=== PATIENT | male | born 1935 | race Caucasian/White ===

== ENCOUNTER 2017-05-04 16:17 | Inpatient (IN) | payer MEDICARE, OTHER ==
[2017-05-04 16:20] VITALS: BMI 20.9
--- NOTE | 2017-05-04 16:58 | C.PDOC ---
History Of Present Illness 81-year-old male, presents to the emergency department with complaints of dysuria and hematuria that started yesterday. Last episode four months ago. Patient denies fevers, back pain, nausea/vomiting, or any other associated symptoms. No other complaints at this time. Patient is on Coumadin for A-fib. Time Seen by Provider: 05/04/17 16:31 Chief Complaint (Nursing): Male Genitourinary History Per: Patient History/Exam Limitations: no limitations Onset/Duration Of Symptoms: Hrs Current Symptoms Are (Timing): Still Present Severity: Moderate Past Medical History Reviewed: Historical Data, Nursing Documentation, Vital Signs Vital Signs: Last Vital Signs Temp 98.4 F 05/04/17 16:23 Pulse 107 H 05/04/17 18:10 Resp 16 05/04/17 18:10 BP 161/93 H 05/04/17 18:10 Pulse Ox 97 05/04/17 18:10 - Medical History PMH: Atrial Fibrillation, Cardia Arrhythmia (A-FIB), HTN, Hypercholesterolemia, Osteoporosis Denies: Chronic Kidney Disease - [facility] Procedures ING HERNIA REP-GRAFT NOS (05/08/14) Family History: States: No Known Family Hx - Social History Hx Tobacco Use: No Hx Alcohol Use: No Hx Substance Use: No - Immunization History Hx Tetanus Toxoid Vaccination: Yes Hx Influenza Vaccination: Yes Hx Pneumococcal Vaccination: Yes Review Of Systems Except As Marked, All Systems Reviewed And Found Negative. Constitutional: Negative for: Fever, Chills Cardiovascular: Negative for: Chest Pain Respiratory: Negative for: Cough, Shortness of Breath Gastrointestinal: Negative for: Nausea, Vomiting Genitourinary: Positive for: Dysuria, Hematuria Musculoskeletal: Negative for: Back Pain Physical Exam - Physical Exam Appears: Non-toxic, No Acute Distress Skin: Warm, Dry, No Rash Head: Atraumatic, Normacephalic Eye(s): bilateral: Normal Inspection, PERRL Oral Mucosa: Moist Lips: Normal Appearing Neck: Normal ROM Chest: Symmetrical Cardiovascular: Rhythm Regular, No Murmur Respiratory: Normal Breath Sounds, No Accessory Muscle Use Gastrointestinal/Abdominal: Distention (mild) Extremity: Normal ROM, Pedal Edema (chronic), No Deformity Neurological/Psych: Oriented x3 ED Course And Treatment - Laboratory Results Result Diagrams: 05/04/17 17:47 05/04/17 17:47 Lab Interpretation: Abnormal (Hgb 8.3, BUN 80, Cr 3.5) O2 Sat by Pulse Oximetry: 95 Pulse Ox Interpretation: Normal Progress Note: Huber inserted and drained >300ml grossly bloody clotted urine. CBI started. Reevaluation Time: 18:29 Reassessment Condition: Improved - Physician Consult Information Time Consulting Physician Contacted: 18:29 Physician Contacted: Nestor Jason Outcome Of Conversation: Patient to be admitted for urology evaluation. Disposition - Disposition Disposition: HOSPITALIZED Disposition Time: 18:30 Condition: FAIR - POA Present On Arrival: None - Clinical Impression Clinical Impression: Gross hematuria, Urinary retention, Renal insufficiency - Scribe Statement The provider has reviewed the documentation as recorded by the Tashiibdarcy Eason All medical record entries made by the Tashiibdarcy were at my direction and personally dictated by me. I have reviewed the chart and agree that the record accurately reflects my personal performance of the history, physical exam, medical decision making, and the department course for this patient. I have also personally directed, reviewed, and agree with the discharge instructions and disposition.
[2017-05-04 17:52] LABS: BASO % 0.6 % (0.0-2.0); EOS % 0.1 % (0.0-4.0); HEMATOCRIT 26.7 % (35.0-51.0); LYMPH # 0.7 K/uL (1.0-4.3); LYMPH % 11.3 % (20.0-40.0); MEAN CELL VOLUME 77.4 fL (80.0-94.0); MEAN PLATELET VOLUME 8.4 fL (7.2-11.7); MONO # 0.6 K/uL (0.0-0.8); MONO % 9.7 % (0.0-10.0); RED CELL DISTRIBUTION WIDTH 16.4 % (11.5-14.5); WHITE BLOOD COUNT 6.3 K/uL (4.8-10.8)
[2017-05-04 17:59] LABS: RBC URINE 7668 /hpf (0-3); URINE BACTERIA FEW (<OCC); URINE BILIRUBIN NEGATIVE (NEGATIVE); URINE COLOR Red (YELLOW); URINE GLUCOSE (UA) NORMAL (Normal); URINE KETONE TRACE mg/dL (NEGATIVE); URINE LEUKOCYTE ESTERASE NEG Leu/uL (Negative); URINE PROTEIN 2+ mg/dL (NEGATIVE); URINE UROBILINOGEN NORMAL mg/dL (0.2-1.0)
[2017-05-04 18:00] LABS: URINE BLOOD 3+ (NEGATIVE)
[2017-05-04 18:07] LABS: POTASSIUM 4.8 mmol/L (3.6-5.2)
[2017-05-04 18:09] LABS: BILIRUBIN,TOTAL 0.6 mg/dL (0.2-1.3)
[2017-05-04 18:10] LABS: ALB/GLOB RATIO 0.9 (1.0-2.1); CALCIUM 8.6 mg/dl (8.6-10.4); TOTAL PROTEIN 7.4 g/dL (6.3-8.3)
[2017-05-04 18:35] LABS: INR 6.9
[2017-05-04] MEDS ORDERED: Dextrose 5%/0.45% NS 1,000 ML IV SCH (20:00)
[2017-05-04] MEDS ORDERED: Phytonadione 10 mg/ml Inj (Adult) SC STA (20:04)
[2017-05-04] MEDS ORDERED: Phytonadione 10 mg/ml Inj (Adult) ONE (20:08)
[2017-05-04 20:32] LABS: BASO % 0.6 % (0.0-2.0); EOS % 0.2 % (0.0-4.0); HEMATOCRIT 27.6 % (35.0-51.0); LYMPH # 0.8 K/uL (1.0-4.3); MEAN CORPUSCULAR HEMOGLOBIN 24.1 pg (27.0-31.0); MEAN CORPUSCULAR HGB CONC 30.9 g/dL (33.0-37.0); MEAN PLATELET VOLUME 7.9 fL (7.2-11.7); MONO # 0.8 K/uL (0.0-0.8); MONO % 11.6 % (0.0-10.0); RED CELL DISTRIBUTION WIDTH 16.2 % (11.5-14.5); WHITE BLOOD COUNT 6.8 K/uL (4.8-10.8)
[2017-05-04 20:40] LABS: POTASSIUM 4.5 mmol/L (3.6-5.2)
[2017-05-04 20:43] LABS: BILIRUBIN,TOTAL 0.4 mg/dL (0.2-1.3); TOTAL PROTEIN 6.8 g/dL (6.3-8.3)
[2017-05-04 20:44] LABS: CALCIUM 8.5 mg/dl (8.6-10.4)
[2017-05-04] MEDS ORDERED: ROSUVASTATIN CALCIUM 5 MG PO SCH (22:00)
[2017-05-04] MEDS: Metoprolol Succinate 25 mg XL Tab PO SCH (22:52)
[2017-05-04] MEDS: Pantoprazole 40 mg EC Tab PO SCH (22:52)
[2017-05-04] MEDS: Dextrose 5%/0.45% NS 1,000 ML IV SCH (22:53)
[2017-05-04] MEDS: Phytonadione 10 mg/ml Inj (Adult) SC SCH (22:54)
[2017-05-05] MEDS: Phytonadione 10 mg/ml Inj (Adult) SC SCH ×2 (05:16→10:56)
[2017-05-05 07:52] LABS: INR 3.6
--- NOTE | 2017-05-05 09:42 | CP.PCM.HP ---
History of Present Illness - History of Present Illness History of Present Illness: 81 year old male who comes to the [facility] ER with gross hematuria for the passed 24 hours. Patient has an INR of 6.3 and hospitalization was advised. Past history includes hypertension, hyperlipidemia , cardiac arrhythmia and thrombophlebitis. Present on Admission - Present on Admission Any Indicators Present on Admission: No History of DVT/PE: Yes History of Uncontrolled Diabetes: No Urinary Catheter: No Decubitus Ulcer Present: No History Surgical Site Infection Following: None Review of Systems - Review of Systems Systems not reviewed;Unavailable: Other (hematuria) - Constitutional Constitutional: Fatigue - EENT Ears: Dizziness - Genitourinary Genitourinary: Hematuria - Musculoskeletal Musculoskeletal: Arthralgias - Neurological Neurological: Weakness Past Patient History - Tetanus Immunizations Tetanus Immunization: Up to Date - Past Medical History & Family History Past Medical History?: Yes - Past Social History Smoking Status: Never Smoked Chewing Tobacco Use: No Cigar Use: No Alcohol: None Drugs: Denies - CARDIAC Hx Atrial Fibrillation: Yes Hx Cardia Arrhythmia: Yes (A-FIB) Hx Hypercholesterolemia: Yes Hx Hypertension: Yes - PULMONARY Hx Respiratory Disorders: No Hx Asthma: Yes - NEUROLOGICAL Hx Neurological Disorder: No - HEENT Hx HEENT Problems: Yes Hx Cataracts: Yes - RENAL Hx Chronic Kidney Disease: No - ENDOCRINE/METABOLIC Hx Endocrine Disorders: No - HEMATOLOGICAL/ONCOLOGICAL Hx Blood Disorders: No - INTEGUMENTARY Hx Dermatological Problems: No - MUSCULOSKELETAL/RHEUMATOLOGICAL Hx Degenerative Joint Disease: Yes Hx Falls: No Hx Osteoporosis: Yes - GASTROINTESTINAL Hx Gastrointestinal Disorders: Yes Hx Constipation: Yes Hx Gastroesophageal Reflux: Yes - GENITOURINARY/GYNECOLOGICAL Hx Prostate Problems: Yes (prostate problem???) - PSYCHIATRIC Hx Substance Use: No - SURGICAL HISTORY Hx Surgeries: Yes Other/Comment: inguinal hernia repair 2014 - ANESTHESIA Hx Anesthesia: Yes Hx Anesthesia Reactions: No Hx Malignant Hyperthermia: No Has any member of the family had a problem w/ anesthesia?: No Meds Allergies/Adverse Reactions: Allergies Allergy/AdvReac Type Severity Reaction Status Date / Time No Known Allergies Allergy Verified 05/04/17 16:20 Physical Exam - Constitutional Appears: No Acute Distress - Head Exam Head Exam: NORMAL INSPECTION - Eye Exam Eye Exam: Normal appearance Pupil Exam: NORMAL ACCOMODATION - ENT Exam ENT Exam: Normal Oropharynx - Neck Exam Neck exam: Positive for: Normal Inspection - Respiratory Exam Respiratory Exam: Decreased Breath Sounds - Cardiovascular Exam Cardiovascular Exam: REGULAR RHYTHM - GI/Abdominal Exam GI & Abdominal Exam: Normal Bowel Sounds - Rectal Exam Rectal Exam: Deferred - Exam Exam: NORMAL INSPECTION - Extremities Exam Extremities exam: Positive for: tenderness - Back Exam Back exam: NORMAL INSPECTION - Neurological Exam Neurological exam: Oriented x3 - Psychiatric Exam Psychiatric exam: Flat Affect - Skin Skin Exam: Dry Results - Vital Signs Recent Vital Signs: Last Vital Signs Temp 98.2 F 05/05/17 08:00 Pulse 95 H 05/05/17 08:00 Resp 20 05/05/17 08:00 BP 139/82 05/05/17 08:00 Pulse Ox 98 05/05/17 08:00 - Labs Result Diagrams: 05/04/17 20:26 05/04/17 20:26 Labs: Laboratory Results - last 24 hr 05/04/17 05/04/17 05/04/17 20:26 20:26 20:26 WBC 6.8 RBC 3.54 L Hgb 8.5 L Hct 27.6 L MCV 78.0 L MCH 24.1 L MCHC 30.9 L RDW 16.2 H Plt Count 162 MPV 7.9 Neut % (Auto) 75.6 H Lymph % (Auto) 12.0 L [place] % (Auto) 11.6 H Eos % (Auto) 0.2 Baso % (Auto) 0.6 Neut # 5.1 Lymph # 0.8 L [place] # 0.8 Eos # 0.0 Baso # 0.0 PT INR Sodium 141 Potassium 4.5 Chloride 106 Carbon Dioxide 25 Anion Gap 15 BUN 75 H Creatinine 3.6 H Est GFR ( Amer) 20 Est GFR (Non-Af Amer) 16 Random Glucose 96 Calcium 8.5 L Total Bilirubin 0.4 AST 22 ALT 23 Alkaline Phosphatase 78 Total Protein 6.8 Albumin 3.3 L Globulin 3.5 Albumin/Globulin Ratio 1.0 Prostate Specific Ag Blood Type B POSITIVE Blood Type Confirm B POSITIVE Antibody Screen Negative 05/05/17 05/05/17 07:30 07:30 WBC RBC Hgb Hct MCV MCH MCHC RDW Plt Count MPV Neut % (Auto) Lymph % (Auto) [place] % (Auto) Eos % (Auto) Baso % (Auto) Neut # Lymph # [place] # Eos # Baso # PT 43.5 H* D INR 3.6 D Sodium Potassium Chloride Carbon Dioxide Anion Gap BUN Creatinine Est GFR ( Amer) Est GFR (Non-Af Amer) Random Glucose Calcium Total Bilirubin AST ALT Alkaline Phosphatase Total Protein Albumin Globulin Albumin/Globulin Ratio Prostate Specific Ag 33.1 H Blood Type Blood Type Confirm Antibody Screen Assessment & Plan (1) Degenerative joint disease Status: Acute (2) ASHD (arteriosclerotic heart disease) Status: Acute (3) Elevated PSA, greater than or equal to 20 ng/ml Status: Acute (4) Gross hematuria Status: Acute (5) Renal insufficiency Status: Acute (6) Urinary retention Status: Acute
[2017-05-05] MEDS: Metoprolol Succinate 25 mg XL Tab PO SCH (09:53)
[2017-05-05] MEDS: Pantoprazole 40 mg EC Tab PO SCH (09:53)
--- NOTE | 2017-05-05 10:48 | CP.PCM.CON ---
History of Present Illness - History of Present Illness History of Present Illness: 81 year old male who comes to the [facility] ER with gross hematuria for the passed 24 hours. Patient has an INR of 6.3 and hospitalization was advised. Past history includes hypertension, hyperlipidemia , cardiac arrhythmia and thrombophlebitis. PMH: HTN DL CHRONIC AFIB DDD PSH: INGUINAL HERNIA REPAIR HAD URINARY RETENTION AND CBI PLACED IN ED NOTED TO HAVE ELEVATED CREATININE- NO H/O CKD WILL LEAVE CBI IN PLACE, INITIATE RENAL WORKUP ADD IV FLUIDS CHECK RENAL US RECOMMEND EVALUATION HOLD WARFARIN UNTIL INR IN RANGE CONSULT DICTATED Past Patient History - Tetanus Immunizations Tetanus Immunization: Up to Date - Past Medical History & Family History Past Medical History?: Yes - Past Social History Smoking Status: Never Smoked Chewing Tobacco Use: No Cigar Use: No Alcohol: None Drugs: Denies - CARDIAC Hx Atrial Fibrillation: Yes Hx Cardia Arrhythmia: Yes (A-FIB) Hx Hypercholesterolemia: Yes Hx Hypertension: Yes - PULMONARY Hx Respiratory Disorders: No Hx Asthma: Yes - NEUROLOGICAL Hx Neurological Disorder: No - HEENT Hx HEENT Problems: Yes Hx Cataracts: Yes - RENAL Hx Chronic Kidney Disease: No - ENDOCRINE/METABOLIC Hx Endocrine Disorders: No - HEMATOLOGICAL/ONCOLOGICAL Hx Blood Disorders: No - INTEGUMENTARY Hx Dermatological Problems: No - MUSCULOSKELETAL/RHEUMATOLOGICAL Hx Degenerative Joint Disease: Yes Hx Falls: No Hx Osteoporosis: Yes - GASTROINTESTINAL Hx Gastrointestinal Disorders: Yes Hx Constipation: Yes Hx Gastroesophageal Reflux: Yes - GENITOURINARY/GYNECOLOGICAL Hx Prostate Problems: Yes (prostate problem???) - PSYCHIATRIC Hx Substance Use: No - SURGICAL HISTORY Hx Surgeries: Yes Other/Comment: inguinal hernia repair 2013 - ANESTHESIA Hx Anesthesia: Yes Hx Anesthesia Reactions: No Hx Malignant Hyperthermia: No Has any member of the family had a problem w/ anesthesia?: No Meds Allergies/Adverse Reactions: Allergies Allergy/AdvReac Type Severity Reaction Status Date / Time No Known Allergies Allergy Verified 05/04/17 16:20 - Medications Medications: Current Medications Dextrose/Sodium Chloride (Dextrose 5%/0.45% Ns 1000 Ml) 1,000 mls @ 60 mls/hr IV .[id number] [facility] Last Admin: 05/04/17 22:53 Dose: 60 mls/hr Metoprolol Succinate (Toprol Xl) 25 mg PO DAILY [facility] Last Admin: 05/05/17 09:53 Dose: 25 mg Pantoprazole Sodium (Protonix Ec Tab) 40 mg PO DAILY [facility] Last Admin: 05/05/17 09:53 Dose: 40 mg Phytonadione (Vitamin K Inj) 5 mg SC Q6H [facility] Stop: 05/05/17 11:01 Last Admin: 05/05/17 05:16 Dose: 5 mg Rosuvastatin Calcium (Crestor) 5 mg PO [facility] Results - Vital Signs Recent Vital Signs: Last Vital Signs Temp 98.2 F 05/05/17 08:00 Pulse 95 H 05/05/17 08:00 Resp 20 05/05/17 08:00 BP 139/82 05/05/17 08:00 Pulse Ox 98 05/05/17 08:00 - Labs Result Diagrams: 05/04/17 20:26 05/04/17 20:26 Labs: Laboratory Results - last 24 hr 05/04/17 05/04/17 05/04/17 20:26 20:26 20:26 WBC 6.8 RBC 3.54 L Hgb 8.5 L Hct 27.6 L MCV 78.0 L MCH 24.1 L MCHC 30.9 L RDW 16.2 H Plt Count 162 MPV 7.9 Neut % (Auto) 75.6 H Lymph % (Auto) 12.0 L [place] % (Auto) 11.6 H Eos % (Auto) 0.2 Baso % (Auto) 0.6 Neut # 5.1 Lymph # 0.8 L [place] # 0.8 Eos # 0.0 Baso # 0.0 PT INR Sodium 141 Potassium 4.5 Chloride 106 Carbon Dioxide 25 Anion Gap 15 BUN 75 H Creatinine 3.6 H Est GFR ( Amer) 20 Est GFR (Non-Af Amer) 16 Random Glucose 96 Calcium 8.5 L Total Bilirubin 0.4 AST 22 ALT 23 Alkaline Phosphatase 78 Total Protein 6.8 Albumin 3.3 L Globulin 3.5 Albumin/Globulin Ratio 1.0 Prostate Specific Ag Blood Type B POSITIVE Blood Type Confirm B POSITIVE Antibody Screen Negative 05/05/17 05/05/17 07:30 07:30 WBC RBC Hgb Hct MCV MCH MCHC RDW Plt Count MPV Neut % (Auto) Lymph % (Auto) [place] % (Auto) Eos % (Auto) Baso % (Auto) Neut # Lymph # [place] # Eos # Baso # PT 43.5 H* D INR 3.6 D Sodium Potassium Chloride Carbon Dioxide Anion Gap BUN Creatinine Est GFR ( Amer) Est GFR (Non-Af Amer) Random Glucose Calcium Total Bilirubin AST ALT Alkaline Phosphatase Total Protein Albumin Globulin Albumin/Globulin Ratio Prostate Specific Ag 33.1 H Blood Type Blood Type Confirm Antibody Screen
--- NOTE | 2017-05-05 11:07 | CON ---
DATE: 05/05/2017 The patient is an 81-year-old man who presents 24 hours of gross hematuria. He was unable t o pass much urine, and the urine he did pass had a large amount of blood in it. He came to the [facility] ency Department. He was felt to have urinary retention, and a CBI was placed. PAST MEDICAL HISTORY: Hypertension, dyslipidemia, chronic atrial fibrillation, degenerative disk dis ease. He takes Coumadin and blood pressure medications at home. PAST SURGICAL HISTORY: Inguinal hernia repair. SOCIAL HISTORY: Negative for smoking, alcohol abuse, or illicit drug use. FAMILY HISTORY: Negative for chronic kidney disease. REVIEW OF SYSTEMS: Significant for gross hematuria, inability to urinate. He has moderate dyspnea o n exertion of approximately 2 blocks. He has no syncope, no dizziness. He has no chest pain, no new rashes, no hearing deficits, or visual disturbances. Other review of systems is all negative. PHYSICAL EXAMINATION: GENERAL: He is a well-developed man in no acute distress. Huber catheter is in place with gross hem aturia. VITAL SIGNS: Blood pressure is 139/82, temperature 98.2. Pulse is 95, pulse ox 98% on room air. HEENT: He is anicteric. Mouth was clear. NECK: No JVD. LUNGS: Lung gu were clear. HEART: Shows irregular heart rhythm, ventricular response about 80-90. ABDOMEN: Soft, distended. No masses or organomegaly. EXTREMITIES: He had 2+ pedal edema. LABORATORY DATA: Blood work showed hemoglobin of 8.5. MCV is 78. INR was elevated at 6.9, and now has decreased to 3.6. BUN is now 75, creatinine 3.6, calcium 8.5. PSA is elevated at 33. Urine marco wed 2+ protein and 3+ blood. IMPRESSION: Acute kidney injury, urinary retention, elevated prostate-specific antigen levels, rule out underlying malignancy. RECOMMENDATIONS: Would continue the CBI, IV fluid hydration. I would obtain renal ultrasound and a renal workup, and will need a urology consult for further evaluation of elevated PSA, and if he needs further studies, he might need a CAT scan as well. We will follow up. Twin Lucas MD cc: [id number] TT: 05/05/2017 11:06:29 Confirmation # [id number] Dictation # [id number]
[2017-05-05 11:50] LABS: BASO % 0.6 % (0.0-2.0); EOS % 0.5 % (0.0-4.0); HEMATOCRIT 25.5 % (35.0-51.0); LYMPH # 0.6 K/uL (1.0-4.3); LYMPH % 8.9 % (20.0-40.0); MEAN CELL VOLUME 77.9 fL (80.0-94.0); MEAN CORPUSCULAR HEMOGLOBIN 24.2 pg (27.0-31.0); MEAN CORPUSCULAR HGB CONC 31.1 g/dL (33.0-37.0); MEAN PLATELET VOLUME 7.9 fL (7.2-11.7); MONO # 0.7 K/uL (0.0-0.8); MONO % 10.5 % (0.0-10.0); PLATELET COUNT 164 K/uL (130-400); WHITE BLOOD COUNT 6.5 K/uL (4.8-10.8)
[2017-05-05 12:01] LABS: POTASSIUM 4.5 mmol/L (3.6-5.2)
[2017-05-05 12:04] LABS: CALCIUM 8.2 mg/dl (8.6-10.4)
[2017-05-05 12:21] LABS: NEUTROPHIL 87 % (50-75); TOTAL CELLS COUNTED 100
--- NOTE | 2017-05-05 15:17 | US ---
PROCEDURE: Ultrasound of the Kidneys HISTORY: DEBORAH, HEMATURIA COMPARISON: No prior renal ultrasound studies is CT abdomen and pelvis 03/30/2014 is noted on that exam patient is noted to have multiple bilateral renal cysts TECHNIQUE: Sonogram of the kidneys. FINDINGS: RIGHT KIDNEY: Measures: 12.7 x 6.7 x 7.1 cm. Multiple a renal cysts are again noted. In the lower pole there are least 2 cysts measuring 2.5 x 2.3 x 3.1 and 2.8 x 1.3 x 2.3 cm. In the midpole 1 of the cyst measuring 2.0 x 2.0 x 2.0 cm is noted. There is interval right hydronephrosis noted. Completely hydronephrosis from the right renal cysts is problematic Gross solid-appearing masses appreciated LEFT KIDNEY: Measures: 13.5 x 6.2 x 6.4 cm. Interval left hydronephrosis is noted. A left midpole left renal cyst 7.1 x 4.6 x 6.0 cm is noted. No solid-appearing mass is apparent OTHER FINDINGS: A Huber catheter was is within the nondistended bladder. CT noted enlarged prostate extending into the bladder base resulting in outlet obstruction is 1 consideration. An intrinsic concomitant bladder base mass is not excluded. IMPRESSION: Interval bilateral hydronephrosis. Bladder outlet obstruction inferred. Enlarged prostate. An intrinsic concomitant bladder base mass is not excluded. Follow-up recommended. Bilateral renal cysts -these have been received noted. No suspicious solid appearing renal mass noted
--- NOTE | 2017-05-05 16:42 | US ---
HISTORY: hematuria, PSA 33 COMPARISON: None available. TECHNIQUE: FINDINGS: A Huber catheter was is within the nondistended bladder. CT noted enlarged prostate extending into the bladder base resulting in outlet obstruction is 1 consideration. An intrinsic concomitant bladder base mass is not excluded. this inferior bladder base/prostate bulk volume is estimated to be 7.7 x 5.9 x 6.0 cm. OTHER FINDINGS: None. IMPRESSION: Findings as above. Consider cystoscopy
--- NOTE | 2017-05-05 16:45 | RAD ---
HISTORY: infiltrate COMPARISON: No prior. TECHNIQUE: Chest PA and lateral FINDINGS: LUNGS: Left basal nonspecific rounded opacity -mass versus infiltrate PLEURA: No significant pleural effusion identified. No pneumothorax apparent. CARDIOVASCULAR: Normal. OSSEOUS STRUCTURES: Thoracic spondylosis. Shoulder arthrosis VISUALIZED UPPER ABDOMEN: Normal. OTHER FINDINGS: None. IMPRESSION: Rounded masslike opacity left lung base - -bordering the left heart. Mass versus round infiltrate Consider CT chest imaging for further evaluation
--- NOTE | 2017-05-05 23:06 | CP.PCM.PN ---
Subjective - Date & Time of Evaluation Date of Evaluation: 05/05/17 Time of Evaluation: 13:15 - Subjective Subjective: Patient alert and responsive. INR down to 3.6. Patient evaluated by Dr Lucas. Urology consult pending. Objective - Vital Signs/Intake and Output Vital Signs (last 24 hours): Temp Pulse Resp BP Pulse Ox 98.5 F 88 20 153/80 H 96 05/05/17 15:10 05/05/17 15:10 05/05/17 15:10 05/05/17 15:10 05/05/17 15:10 Intake and Output: 05/05/17 05/06/17 18:59 06:59 Intake Total 690 Output Total 3000 Balance -2310 - Medications Medications: Current Medications Dextrose/Sodium Chloride (Dextrose 5%/0.45% Ns 1000 Ml) 1,000 mls @ 60 mls/hr IV .[id number] [facility] Last Admin: 05/04/17 22:53 Dose: 60 mls/hr Metoprolol Succinate (Toprol Xl) 25 mg PO DAILY [facility] Last Admin: 05/05/17 09:53 Dose: 25 mg Pantoprazole Sodium (Protonix Ec Tab) 40 mg PO DAILY [facility] Last Admin: 05/05/17 09:53 Dose: 40 mg Rosuvastatin Calcium (Crestor) 5 mg PO [facility] Last Admin: 05/05/17 22:14 Dose: 5 mg - Labs Labs: 05/05/17 11:44 05/05/17 11:44 PT 43.5 SECONDS (9.7-12.2) H* D 05/05/17 07:30 INR 3.6 D 05/05/17 07:30 - Constitutional Appears: No Acute Distress - Head Exam Head Exam: NORMAL INSPECTION - Eye Exam Eye Exam: Normal appearance - ENT Exam ENT Exam: Normal Exam - Neck Exam Neck Exam: Normal Inspection - Respiratory Exam Respiratory Exam: Decreased Breath Sounds - Cardiovascular Exam Cardiovascular Exam: REGULAR RHYTHM - GI/Abdominal Exam GI & Abdominal Exam: Normal Bowel Sounds - Rectal Exam Rectal Exam: Deferred - Exam Exam: NORMAL INSPECTION - Extremities Exam Extremities Exam: Tenderness - Back Exam Back Exam: NORMAL INSPECTION - Neurological Exam Neurological Exam: Oriented x3 - Psychiatric Exam Psychiatric exam: Normal Mood Assessment and Plan (1) Degenerative joint disease Status: Acute (2) ASHD (arteriosclerotic heart disease) Status: Acute (3) Elevated PSA, greater than or equal to 20 ng/ml Status: Acute (4) Gross hematuria Status: Acute (5) Renal insufficiency Status: Acute (6) Urinary retention Status: Acute
[2017-05-06 06:16] LABS: HEMATOCRIT 26.4 % (35.0-51.0); MEAN CELL VOLUME 76.7 fL (80.0-94.0); MEAN CORPUSCULAR HGB CONC 31.3 g/dL (33.0-37.0); MEAN PLATELET VOLUME 7.8 fL (7.2-11.7); RED CELL DISTRIBUTION WIDTH 16.3 % (11.5-14.5); WHITE BLOOD COUNT 8.2 K/uL (4.8-10.8)
[2017-05-06] MEDS: Dextrose 5%/0.45% NS 1,000 ML IV SCH ×5 (06:25→23:07)
[2017-05-06 06:41] LABS: ALB/GLOB RATIO 0.9 (1.0-2.1); BILIRUBIN,TOTAL 0.5 mg/dL (0.2-1.3); TOTAL PROTEIN 6.4 g/dL (6.3-8.3)
[2017-05-06 06:42] LABS: CALCIUM 8.2 mg/dl (8.6-10.4); MAGNESIUM 2.4 mg/dL (1.6-2.3); PHOSPHOROUS 4.6 mg/dL (2.5-4.5)
[2017-05-06] MEDS: Metoprolol Succinate 25 mg XL Tab PO SCH ×2 (09:48→21:45)
[2017-05-06] MEDS: Pantoprazole 40 mg EC Tab PO SCH (09:48)
--- NOTE | 2017-05-06 10:21 | CP.PCM.CON ---
Past Patient History - Tetanus Immunizations Tetanus Immunization: Up to Date - Past Medical History & Family History Past Medical History?: Yes - Past Social History Smoking Status: Never Smoked Chewing Tobacco Use: No Cigar Use: No Alcohol: None Drugs: Denies - CARDIAC Hx Atrial Fibrillation: Yes Hx Cardia Arrhythmia: Yes (A-FIB) Hx Hypercholesterolemia: Yes Hx Hypertension: Yes - PULMONARY Hx Respiratory Disorders: No Hx Asthma: Yes - NEUROLOGICAL Hx Neurological Disorder: No - HEENT Hx HEENT Problems: Yes Hx Cataracts: Yes - RENAL Hx Chronic Kidney Disease: No - ENDOCRINE/METABOLIC Hx Endocrine Disorders: No - HEMATOLOGICAL/ONCOLOGICAL Hx Blood Disorders: No - INTEGUMENTARY Hx Dermatological Problems: No - MUSCULOSKELETAL/RHEUMATOLOGICAL Hx Degenerative Joint Disease: Yes Hx Falls: No Hx Osteoporosis: Yes - GASTROINTESTINAL Hx Gastrointestinal Disorders: Yes Hx Constipation: Yes Hx Gastroesophageal Reflux: Yes - GENITOURINARY/GYNECOLOGICAL Hx Prostate Problems: Yes (prostate problem???) - PSYCHIATRIC Hx Substance Use: No - SURGICAL HISTORY Hx Surgeries: Yes Other/Comment: inguinal hernia repair 2013 - ANESTHESIA Hx Anesthesia: Yes Hx Anesthesia Reactions: No Hx Malignant Hyperthermia: No Has any member of the family had a problem w/ anesthesia?: No Meds Allergies/Adverse Reactions: Allergies Allergy/AdvReac Type Severity Reaction Status Date / Time No Known Allergies Allergy Verified 05/04/17 16:20 - Medications Medications: Current Medications Dextrose/Sodium Chloride (Dextrose 5%/0.45% Ns 1000 Ml) 1,000 mls @ 60 mls/hr IV .[id number] [facility] Last Admin: 05/06/17 06:39 Dose: Not Given Metoprolol Succinate (Toprol Xl) 25 mg PO DAILY [facility] Last Admin: 05/06/17 09:48 Dose: 25 mg Pantoprazole Sodium (Protonix Ec Tab) 40 mg PO DAILY [facility] Last Admin: 05/06/17 09:48 Dose: 40 mg Rosuvastatin Calcium (Crestor) 5 mg PO HS [facility] Last Admin: 05/05/17 22:14 Dose: 5 mg Results - Vital Signs Recent Vital Signs: Last Vital Signs Temp 98.0 F 05/06/17 07:56 Pulse 95 H 05/06/17 07:56 Resp 20 05/06/17 07:56 BP 142/85 05/06/17 07:56 Pulse Ox 99 05/06/17 07:56 - Labs Result Diagrams: 05/06/17 06:06 05/06/17 06:06 Labs: Laboratory Results - last 24 hr 05/05/17 05/05/17 05/06/17 11:44 11:44 06:06 WBC 6.5 8.2 RBC 3.27 L 3.44 L Hgb 7.9 L 8.3 L Hct 25.5 L 26.4 L MCV 77.9 L 76.7 L MCH 24.2 L 24.0 L MCHC 31.1 L 31.3 L RDW 16.0 H 16.3 H Plt Count 164 177 MPV 7.9 7.8 Neut % (Auto) 79.5 H Lymph % (Auto) 8.9 L [place] % (Auto) 10.5 H Eos % (Auto) 0.5 Baso % (Auto) 0.6 Neut # 5.2 Lymph # 0.6 L [place] # 0.7 Eos # 0.0 Baso # 0.0 Neutrophils % (Manual) 87 H Lymphocytes % (Manual) 8 L Monocytes % (Manual) 5 Platelet Estimate Normal Hypochromasia (manual) Moderate Poikilocytosis (manual Slight Basophilic Stippling Slight Anisocytosis (manual) Slight Ovalocytes Slight Sodium 138 Potassium 4.5 Chloride 103 Carbon Dioxide 26 Anion Gap 14 BUN 72 H Creatinine 3.7 H Est GFR ( Amer) 19 Est GFR (Non-Af Amer) 16 Random Glucose 150 H Calcium 8.2 L Phosphorus Magnesium % Saturation Ferritin Total Bilirubin AST ALT Alkaline Phosphatase Total Protein Albumin Globulin Albumin/Globulin Ratio 05/06/17 05/06/17 06:06 06:06 WBC RBC Hgb Hct MCV MCH MCHC RDW Plt Count MPV Neut % (Auto) Lymph % (Auto) [place] % (Auto) Eos % (Auto) Baso % (Auto) Neut # Lymph # [place] # Eos # Baso # Neutrophils % (Manual) Lymphocytes % (Manual) Monocytes % (Manual) Platelet Estimate Hypochromasia (manual) Poikilocytosis (manual Basophilic Stippling Anisocytosis (manual) Ovalocytes Sodium 137 Potassium 5.0 Chloride 102 Carbon Dioxide 27 Anion Gap 13 BUN 75 H Creatinine 4.1 H Est GFR ( Amer) 17 Est GFR (Non-Af Amer) 14 Random Glucose 114 H Calcium 8.2 L Phosphorus 4.6 H Magnesium 2.4 H % Saturation 18 L Ferritin 19.0 Total Bilirubin 0.5 AST 28 ALT 15 L D Alkaline Phosphatase 70 Total Protein 6.4 Albumin 3.0 L Globulin 3.4 Albumin/Globulin Ratio 0.9 L Assessment & Plan - Assessment and Plan (Free Text) Assessment: IMP: HEAMTURIA RENAL INSUFFICIENCY COAGULOPATHY Plan: CATHETER IRRIGATED FULL REPORT TO BE DICTATED THANK YOU ys - Date & Time Date: 05/06/17 Time: 10:20
[2017-05-06] MEDS ORDERED: Dextrose 5%/0.45% NS 1,000 ML IV SCH (11:00)
[2017-05-06 11:28] LABS: INR 1.6
--- NOTE | 2017-05-06 14:36 | CP.PCM.PN ---
Subjective - Date & Time of Evaluation Date of Evaluation: 05/06/17 Time of Evaluation: 14:33 - Subjective Subjective: Still with gross hematuria Renal US with bilateral hydro; possible renal mass- report is contradictory tolerating IV fluids Creat increased to 4.1 CBI in progress- UO unclear Objective - Vital Signs/Intake and Output Vital Signs (last 24 hours): Temp Pulse Resp BP Pulse Ox 98.0 F 95 H 20 142/85 99 05/06/17 07:56 05/06/17 07:56 05/06/17 07:56 05/06/17 07:56 05/06/17 07:56 Intake and Output: 05/06/17 05/06/17 06:59 18:59 Intake Total 1480 Output Total 3900 Balance -2420 - Medications Medications: Current Medications Dextrose/Sodium Chloride (Dextrose 5%/0.45% Ns 1000 Ml) 1,000 mls @ 80 mls/hr IV .[id number] [facility] Last Admin: 05/06/17 12:28 Dose: 80 mls/hr Metoprolol Succinate (Toprol Xl) 25 mg PO Q12 [facility] Pantoprazole Sodium (Protonix Ec Tab) [address] [facility] Last Admin: 05/06/17 09:48 Dose: 40 mg Rosuvastatin Calcium (Crestor) [address] [facility] Last Admin: 05/05/17 22:14 Dose: 5 mg - Labs Labs: 05/06/17 06:06 05/06/17 06:06 PT 18.8 SECONDS (9.7-12.2) H D 05/06/17 11:14 INR 1.6 D 05/06/17 11:14 - Constitutional Appears: No Acute Distress, Chronically Ill - Head Exam Head Exam: ATRAUMATIC, NORMAL INSPECTION - Eye Exam Eye Exam: EOMI, Normal appearance - Neck Exam Neck Exam: Normal Inspection. absent: Tenderness - Respiratory Exam Respiratory Exam: Clear to Ausculation Bilateral, NORMAL BREATHING PATTERN - Cardiovascular Exam Cardiovascular Exam: REGULAR RHYTHM, +S1 - GI/Abdominal Exam GI & Abdominal Exam: Soft. absent: Tenderness - Extremities Exam Extremities Exam: Normal Inspection. absent: Tenderness - Neurological Exam Neurological Exam: Alert, CN II-XII Intact - Skin Skin Exam: Dry, Warm Assessment and Plan (1) DEBORAH (acute kidney injury) Status: Acute (2) Bilateral hydronephrosis Status: Acute (3) Degenerative joint disease Status: Acute (4) Elevated PSA, greater than or equal to 20 ng/ml Status: Acute (5) Gross hematuria Status: Acute - Assessment and Plan (Free Text) Plan: Increase IV fluids Serial chemistries follow up
--- NOTE | 2017-05-06 21:10 | CON ---
DATE: 05/06/2017 Urology consultation is requested by Dr. Nestor Jason. Urology consultation filled by Dr. Mariaelena Hawk. REASON FOR CONSULTATION: Hematuria. HISTORY OF PRESENT ILLNESS: The patient is an 81-year-old male with hematuria. The patient is in otherwise fair health. The patient lives at home. He presented to Emergency Room with gross hematuria and dysuria. The patient had episode of hematuria several months ago. He now presents with a one-day history of h ematuria. There have been no fevers. No abdominal pain. No flank pain. The patient has history of atrial fibrillation. The patient takes Coumadin. The patient has history of hypertension and osteoporosis. There is history of chronic kidney disease according to review of the chart. The patient had urinary retention. He had a Huber catheter placed in the Emergency Room. The patient was noted to have marked coagulopathy. His Coumadin has been held. MEDICATIONS: Include Toprol, Protonix, Crestor. The patient also had previously received Coumadin. During this admission, he received vitamin K. On admission, patient had BUN of 75, creatinine 3.6. White blood count 6800, hematocrit 27. The INR in the Emergency Room was markedly elevated. The repeat INR yesterday was improved with a PT of 43 and an INR of 33.6. The patient also was noted to have an elevated serum PSA of 33. Urine culture revealed no growth. The patient lives at home. The patient was born in [place]. PHYSICAL EXAMINATION: GENERAL: The patient is a well-developed, well-nourished elderly male. The patient is awake and mati rt. ABDOMEN: Soft, nontender, nondistended. No mass, organomegaly. BACK: No CVA tenderness. GENITALIA: Without inflammation. Urine demonstrates moderate hematuria via the Huber catheter. I irrigated the Huber catheter with bulb syringe and with Perri syringe. I obtained small clots via the Huber catheter. 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 IMPRESSION: Hematuria. Coagulopathy. Renal insufficiency. Elevated serum prostate specific antige n. RECOMMENDATIONS AND PLAN: Huber catheter indwelling. Bladder irrigation. CT scan. Correction of c oagulopathy. Cystoscopy to follow. Further therapy to follow according to patient's clinical course. Thank you for recommending the patient for urology consultation. [facility] Kenn PASCUAL cc: [phone] TT: 05/06/2017 21:09:35 Confirmation # [id number] Dictation # [id number]
--- NOTE | 2017-05-06 22:00 | CP.PCM.PN ---
Subjective - Date & Time of Evaluation Date of Evaluation: 05/06/17 Time of Evaluation: 13:00 - Subjective Subjective: Patient denies having pelvic pain. INR today 1.6. Chest xray reveals possible infiltrate. CT scan of the chest without contrast requested. Objective - Vital Signs/Intake and Output Vital Signs (last 24 hours): Temp Pulse Resp BP Pulse Ox 98.4 F 92 H 20 153/84 H 98 05/06/17 16:00 05/06/17 16:00 05/06/17 16:00 05/06/17 16:00 05/06/17 16:00 Intake and Output: 05/06/17 05/07/17 18:59 06:59 Intake Total 800 Output Total 2400 Balance -1600 - Medications Medications: Current Medications Diltiazem HCl (Cardizem) 30 mg PO Q8H [facility] Last Admin: 05/06/17 21:46 Dose: 30 mg Dextrose/Sodium Chloride (Dextrose 5%/0.45% Ns 1000 Ml) 1,000 mls @ 120 mls/hr IV .Q8H20M [facility] Last Admin: 05/06/17 19:03 Dose: 120 mls/hr Metoprolol Succinate (Toprol Xl) 25 mg PO Q12 [facility] Last Admin: 05/06/17 21:45 Dose: 25 mg Pantoprazole Sodium (Protonix Ec Tab) 40 mg PO DAILY [facility] Last Admin: 05/06/17 09:48 Dose: 40 mg Rosuvastatin Calcium (Crestor) 5 mg PO HS [facility] Last Admin: 05/06/17 21:45 Dose: 5 mg - Labs Labs: 05/06/17 06:06 05/06/17 06:06 PT 18.8 SECONDS (9.7-12.2) H D 05/06/17 11:14 INR 1.6 D 05/06/17 11:14 - Constitutional Appears: No Acute Distress - Head Exam Head Exam: NORMAL INSPECTION - Eye Exam Eye Exam: Normal appearance Pupil Exam: NORMAL ACCOMODATION - ENT Exam ENT Exam: Normal Exam - Neck Exam Neck Exam: Normal Inspection - Respiratory Exam Respiratory Exam: Decreased Breath Sounds - Cardiovascular Exam Cardiovascular Exam: REGULAR RHYTHM - GI/Abdominal Exam GI & Abdominal Exam: Normal Bowel Sounds - Rectal Exam Rectal Exam: Deferred - Exam Exam: NORMAL INSPECTION - Extremities Exam Extremities Exam: Tenderness - Back Exam Back Exam: NORMAL INSPECTION - Neurological Exam Neurological Exam: Oriented x3 - Psychiatric Exam Psychiatric exam: Normal Affect - Skin Skin Exam: Dry Assessment and Plan (1) Degenerative joint disease Status: Acute (2) ASHD (arteriosclerotic heart disease) Status: Acute (3) Elevated PSA, greater than or equal to 20 ng/ml Status: Acute (4) Gross hematuria Status: Acute (5) Renal insufficiency Status: Acute (6) Urinary retention Status: Acute
[2017-05-07] MEDS: Dextrose 5%/0.45% NS 1,000 ML IV SCH ×6 (03:29→23:52)
[2017-05-07 07:05] LABS: BASO % 0.5 % (0.0-2.0); EOS # 0.1 K/uL (0.0-0.7); EOS % 0.7 % (0.0-4.0); LYMPH # 0.9 K/uL (1.0-4.3); LYMPH % 12.1 % (20.0-40.0); MEAN CELL VOLUME 76.8 fL (80.0-94.0); MEAN CORPUSCULAR HEMOGLOBIN 23.9 pg (27.0-31.0); MEAN CORPUSCULAR HGB CONC 31.1 g/dL (33.0-37.0); MEAN PLATELET VOLUME 8.1 fL (7.2-11.7); MONO % 13.3 % (0.0-10.0); WHITE BLOOD COUNT 7.5 K/uL (4.8-10.8)
[2017-05-07 07:20] LABS: POTASSIUM 4.4 mmol/L (3.6-5.2)
[2017-05-07 07:21] LABS: INR 1.2
[2017-05-07 07:23] LABS: ALB/GLOB RATIO 0.9 (1.0-2.1); BILIRUBIN,TOTAL 0.3 mg/dL (0.2-1.3); CALCIUM 7.3 mg/dl (8.6-10.4); TOTAL PROTEIN 5.2 g/dL (6.3-8.3)
[2017-05-07] MEDS: Pantoprazole 40 mg EC Tab PO SCH (11:00)
[2017-05-07] MEDS: Metoprolol Succinate 25 mg XL Tab PO SCH ×2 (11:00→21:04)
--- NOTE | 2017-05-07 11:15 | CP.PCM.PN ---
Subjective - Date & Time of Evaluation Date of Evaluation: 05/07/17 Time of Evaluation: 11:12 - Subjective Subjective: 81 year old male who [facility] ER with gross hematuria for the passed 24 hours. Patient has an INR of 6.3 and hospitalization was advised. Past history includes hypertension, hyperlipidemia, cardiac arrhythmia and thrombophlebitis. HAD URINARY RETENTION AND CBI PLACED IN ED NOTED TO HAVE ELEVATED CREATININE- NO H/O CKD Comfortable in bed Remains with 3 way irrigation IVF infusing No distress Hungry! NPO this am As per anaesthesia - intervention scheduled for 05/09 No overnight events no cp or palp, no sob or cough, no n/v/d 10 point ros negative except for above Objective - Vital Signs/Intake and Output Vital Signs (last 24 hours): Temp Pulse Resp BP Pulse Ox 98.4 F 73 20 130/75 96 05/07/17 08:34 05/07/17 08:34 05/07/17 08:34 05/07/17 08:34 05/07/17 08:34 Intake and Output: 05/07/17 05/07/17 06:59 18:59 Intake Total 2370 Output Total 3800 Balance -1430 - Medications Medications: Current Medications Diltiazem HCl (Cardizem) 30 mg PO Q8H [facility] Last Admin: 05/07/17 05:47 Dose: 30 mg Dextrose/Sodium Chloride (Dextrose 5%/0.45% Ns 1000 Ml) 1,000 mls @ 120 mls/hr IV .Q8H20M [facility] Last Admin: 05/07/17 03:29 Dose: 120 mls/hr Metoprolol Succinate (Toprol Xl) 25 mg PO Q12 [facility] Last Admin: 05/07/17 11:00 Dose: 25 mg Pantoprazole Sodium (Protonix Ec Tab) 40 mg PO DAILY [facility] Last Admin: 05/07/17 11:00 Dose: 40 mg Rosuvastatin Calcium (Crestor) 5 mg PO HS [facility] Last Admin: 05/06/17 21:45 Dose: 5 mg - Labs Labs: 05/07/17 06:54 05/07/17 06:54 PT 14.0 SECONDS (9.7-12.2) H 05/07/17 06:54 INR 1.2 05/07/17 06:54 - Constitutional Appears: Non-toxic, Chronically Ill - Head Exam Head Exam: ATRAUMATIC, NORMAL INSPECTION - Eye Exam Eye Exam: EOMI, Normal appearance - ENT Exam ENT Exam: Mucous Membranes Dry, Normal Oropharynx - Neck Exam Neck Exam: absent: Lymphadenopathy, Thyromegaly - Respiratory Exam Respiratory Exam: Clear to Ausculation Bilateral. absent: Rhonchi, Wheezes - Cardiovascular Exam Cardiovascular Exam: REGULAR RHYTHM, +S1, +S2. absent: JVD - GI/Abdominal Exam GI & Abdominal Exam: Soft, Normal Bowel Sounds - Extremities Exam Extremities Exam: absent: Joint Swelling, Pedal Edema - Neurological Exam Neurological Exam: Alert, Awake - Skin Skin Exam: Dry, Warm Assessment and Plan (1) DEBORAH (acute kidney injury) Status: Acute (2) ASHD (arteriosclerotic heart disease) Status: Acute (3) Bilateral hydronephrosis Status: Acute (4) Elevated PSA, greater than or equal to 20 ng/ml Status: Acute (5) Gross hematuria Status: Acute (6) Urinary retention Status: Acute - Assessment and Plan (Free Text) Assessment: Renal function slowly responding to IVF Electrolytes acceptable Bp stable Continue irrigation per urology Suggest transfusion Await cystoscopy Daily labs
--- NOTE | 2017-05-07 16:12 | CT ---
CT chest History: Infiltrate. Comparison: None available. Technique: Axial computed tomographic images of the chest were performed with intravenous contrast. Subsequently, sagittal and coronal reformatted images were obtained. This CT exam was performed using one or more of the following dose reduction techniques: Automated exposure control, adjustment of the mA and/or kV according to patient size, and/or use of iterative reconstruction technique. Findings: Lungs: Multiple pulmonary nodules: 5 millimeter nodule within the left upper lobe image 36 series 3. 3 millimeter nodule within the superior segment of the left lower lobe on image 38. 3 millimeter nodule in the right upper lobe anteriorly on image 40. 4 millimeter nodule within the left upper lobe on image 45. 3 millimeter nodule within the right upper lobe on image 50. 3 millimeter nodule within the left upper lobe on image 54. 4 millimeter nodule within the left upper lobe on image 55. 6 millimeter nodule within the left upper lobe on image 57. 3 millimeter nodule within the left upper lobe on image 57. 8 millimeter nodule within the right middle lobe on image 63. 7 millimeter nodule within the left lower lobe on image 64. 3 millimeter nodule within the right middle lobe on image 70. 5 millimeter nodule seen within the right middle lobe on image 71. 5 millimeter nodule seen within the right middle lobe inferiorly on series 3, image 88. 4 millimeter nodule within the right lower lobe on series 3, image 85. 5 millimeter nodule within the right lower lobe on series 3, image 74. 2 millimeter pulmonary nodule within the left lower lobe anteriorly on series 3, image 85. 4 millimeter pulmonary nodule within the left lower lobe on series 3, image 82. Calcified consolidation within the lingula. Prominent consolidative changes seen within the bibasilar regions extending into the left lower lobe superiorly. Coronary calcifications. 1.2 centimeter prevascular lymph node. Calcification and plaque within the aorta. Visualized aorta measures up to 3-3.2 centimeters, mildly prominent. Bilateral small pleural effusions. Heart is enlarged. Degenerative changes in the osseous structures. Shotty mediastinal and hilar lymph nodes. Multiple low-attenuation lesions/masses within the liver which are incompletely characterized and evaluated. For example, a large lobulated ill-defined lesion within the left hepatic lobe on series 4, image 115 measures up to 4.5 centimeters demonstrating a Hounsfield unit attenuation of 15. This is of uncertain clinical etiology and hepatic neoplasm cannot be excluded. Evaluation of the partially imaged kidneys demonstrates multiple hypo and hyper attenuating masses, incompletely characterized. Nodular thickening of the adrenal glands. Calcification and plaque within the aorta. Impression: 1. Bilateral small pleural effusions. 2. Innumerable subcentimeter pulmonary parenchymal nodules concerning for possible metastatic disease. Clinical correlation. 3. Prominent consolidative changes at the lung bases as well as within the left lower lobe superiorly. Clinical correlation. 4. Incompletely evaluated and indeterminate hepatic and renal space-occupying lesions. Clinical correlation. Underlying neoplastic disease cannot be excluded. These findings were preliminarily reported at 2:46 p.m. on 05/07/[address] Collin Briceño from [facility].
--- NOTE | 2017-05-07 22:05 | CP.PCM.PN ---
Subjective - Date & Time of Evaluation Date of Evaluation: 05/07/17 Time of Evaluation: 15:50 - Subjective Subjective: Patient is alert and oriented X3. Uring clearing. Hct 22. Order given to tranfuse 2 units of packed cells. Cysto scheduled by urology. Objective - Vital Signs/Intake and Output Vital Signs (last 24 hours): Temp Pulse Resp BP Pulse Ox 98 F 82 18 136/79 96 05/07/17 21:34 05/07/17 21:34 05/07/17 21:34 05/07/17 21:34 05/07/17 16:06 Intake and Output: 05/07/17 05/08/17 18:59 06:59 Intake Total 150 0 Balance 150 0 - Medications Medications: Current Medications Diltiazem HCl (Cardizem) 30 mg PO Q8H [facility] Last Admin: 05/07/17 21:04 Dose: 30 mg Dextrose/Sodium Chloride (Dextrose 5%/0.45% Ns 1000 Ml) 1,000 mls @ 120 mls/hr IV .Q8H20M [facility] Last Admin: 05/07/17 21:41 Dose: 120 mls/hr Metoprolol Succinate (Toprol Xl) 25 mg PO Q12 [facility] Last Admin: 05/07/17 21:04 Dose: 25 mg Pantoprazole Sodium (Protonix Ec Tab) 40 mg PO DAILY [facility] Last Admin: 05/07/17 11:00 Dose: 40 mg Rosuvastatin Calcium (Crestor) 5 mg PO HS [facility] Last Admin: 05/07/17 21:04 Dose: 5 mg Tramadol HCl (Ultram) 50 mg PO Q4 PRN PRN Reason: for pain Last Admin: 05/07/17 19:45 Dose: 50 mg - Labs Labs: 05/07/17 06:54 05/07/17 06:54 PT 14.0 SECONDS (9.7-12.2) H 05/07/17 06:54 INR 1.2 05/07/17 06:54 - Constitutional Appears: No Acute Distress - Head Exam Head Exam: NORMAL INSPECTION - Eye Exam Eye Exam: Normal appearance Pupil Exam: NORMAL ACCOMODATION - ENT Exam ENT Exam: Normal Exam - Neck Exam Neck Exam: Normal Inspection - Respiratory Exam Respiratory Exam: Decreased Breath Sounds - Cardiovascular Exam Cardiovascular Exam: Irregular Rhythm - GI/Abdominal Exam GI & Abdominal Exam: Hyperactive Bowel Sounds - Rectal Exam Rectal Exam: Deferred - Exam Exam: NORMAL INSPECTION - Extremities Exam Extremities Exam: Normal Inspection - Back Exam Back Exam: NORMAL INSPECTION - Neurological Exam Neurological Exam: Alert - Psychiatric Exam Psychiatric exam: Normal Mood Assessment and Plan (1) Degenerative joint disease Status: Acute (2) ASHD (arteriosclerotic heart disease) Status: Acute (3) Elevated PSA, greater than or equal to 20 ng/ml Status: Acute (4) Gross hematuria Status: Acute (5) Renal insufficiency Status: Acute (6) Urinary retention Status: Acute
[2017-05-08] MEDS: Dextrose 5%/0.45% NS 1,000 ML IV SCH ×3 (05:49→20:00)
[2017-05-08 07:22] LABS: POTASSIUM 4.8 mmol/L (3.6-5.2)
[2017-05-08 07:24] LABS: BILIRUBIN,TOTAL 0.8 mg/dL (0.2-1.3)
[2017-05-08 07:25] LABS: CALCIUM 7.9 mg/dl (8.6-10.4); TOTAL PROTEIN 5.7 g/dL (6.3-8.3)
[2017-05-08 07:32] LABS: ALB/GLOB RATIO 0.8 (1.0-2.1); HEMATOCRIT 31.2 % (35.0-51.0); MEAN CELL VOLUME 80.5 fL (80.0-94.0); MEAN CORPUSCULAR HGB CONC 32.3 g/dL (33.0-37.0); MEAN PLATELET VOLUME 8.4 fL (7.2-11.7); RED CELL DISTRIBUTION WIDTH 17.8 % (11.5-14.5); WHITE BLOOD COUNT 10.9 K/uL (4.8-10.8)
[2017-05-08] MEDS ORDERED: Iohexol 240 (50 ml) ONE (08:25)
[2017-05-08] MEDS ORDERED: cefTRIAXone IV 1 gm in Dextros 50 ML IVPB ONE (08:25)
[2017-05-08] MEDS ORDERED: Lidocaine 2% Jelly (Uro-Jet) ONE (08:25)
[2017-05-08] MEDS ORDERED: Propofol 10 mg/ml Inj (20 ML) ONE (08:33)
--- NOTE | 2017-05-08 09:34 | PCM.SURG1 ---
Surgeon's Initial Post Op Note - Surgeon's Notes Surgeon: Noe HOLLEY Stock Preparation Supervisor: NONE Type of Anesthesia: General Mask Pre-Operative Diagnosis: HEMATURIA Operative Findings: SAME. 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 ATTEMPTED RTG PYELOGRAM. TUR- BT. TUR-BN Specimen/Specimens Removed: BLADDER WADSSHING. 'BLADDR AND BN Estimated Blood Loss: EBL {In ML}: 50 Blood Products Given: N/A Post-Op Condition: Good Date of Surgery/Procedure: 05/08/17 Time of Surgery/Procedure: 09:25
[2017-05-08] MEDS: Metoprolol Succinate 25 mg XL Tab PO SCH ×2 (10:00→21:20)
[2017-05-08] MEDS: Pantoprazole 40 mg EC Tab PO SCH (10:00)
[2017-05-08] MEDS: cefTRIAXone IV 1 gm in Dextros 50 ML IVPB SCH (10:00)
--- NOTE | 2017-05-08 15:34 | RAD ---
Abdomen single frontal view History: Gross hematuria. Comparison: Ultrasound dated 05/05/2017 Findings: Prominent stool projects over renal fossa bilaterally, limiting evaluation. Rounded radiopaque calcifications project over the pelvis which may represent calcified phleboliths however calculi can't be excluded. Correlation with noncontrast CT scan may be helpful if clinically indicated. Moderate fecal retention in the colon. Degenerative changes in the spine and bilateral hips. Surgical clips project over the left lower pelvis. Prominent vascular calcifications. Impression: Prominent stool projects over renal fossa bilaterally, limiting evaluation. Rounded radiopaque calcifications project over the pelvis which may represent calcified phleboliths however calculi can't be excluded. Correlation with noncontrast CT scan may be helpful if clinically indicated.
--- NOTE | 2017-05-08 20:47 | OP ---
PROCEDURE DATE: 05/08/2017 PREOPERATIVE DIAGNOSIS: Hematuria. POSTOPERATIVE DIAGNOSES: Hematuria. 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 PROCEDURE: Cystoscopy. Evacuation of clots. Attempted retrograde pyelogram. Transurethral resecti on of bladder tumor. Transurethral resection of bladder neck. Exam under anesthesia. OPERATING SURGEON: Dr. Mariaelena Hawk. DESCRIPTION OF PROCEDURE: The patient received perioperative antibiotics. The patient was placed in the lithotomy position. Genitalia prepped and draped sterilely. General anesthesia was provided by the anesthesiologist via a facemask. video endoscopic control. A 22-Bengali cystoscope was introduced under direct vision. Urethra, prostate and bladder were inspec randa. FINDINGS: The anterior urethra was noted to be normal. There was evidence of lateral low prostatic hypertrophy. The prostatic urethra was approximately 4 cm in length. In the proximal urethra there was noted to be abnormal tissue. There was necrotic tissue, there was solid tissue involving the tri dder neck and the floor of the bladder. The bladder neck abnormality also extended more anteriorly. There were noted to be multiple clots within the bladder. These were irrigated via the cystoscope wi th the Microvasive evacuator. Initially, they were subsequently irrigated free with the Microvasive evacuator via the resectoscope sheath. The bladder was noted to be markedly trabeculated. Attempt at performance of retrograde pyelogram wa s made. However, the ureteral orifices could not be identified due to the inflammation within the bl adder as well as the abnormal tissue within the bladder. There was active bleeding noted from this abnormal tissue. The cystoscope and sheath were removed. A continuous flow resectoscope sheath was introduced under d irect vision with the visual obturator. The resection of the tumor on the floor of the bladder extending to the left and extended to the ante rior wall was performed. Extension was noted to be anteriorly toward the bladder neck. The tumor wa s solid in some areas and the tumor was necrotic in some areas. In addition, there was debris upon first insertion of the cystoscope. This tissue was irrigated free and sent for pathologic examination. The resection incorporated the presumed bladder tumor as well as the bladder neck. Hemostasis was achieved. The specimens were removed using the Microvasive evacuator. Specimens were sent for pathologic examination. The prostatic urethra was noted to be somewhat rigid and was gripping both the cystoscope sheath as w ell as the resectoscope sheath. The resectoscope and sheath were removed. A Huber catheter was inserted. Bladder drainage was clear with mild traction applied. Exam under anesthesia was performed. There was noted to be marked prostatic enlargement. The prosta te was greater than 50 grams in size. There was asymmetry of the prostate with the left greater than the right. There was mild nodularity of both lobes of the prostate with mild induration. The patient was returned to the supine position. The patient tolerated the procedure without complic ation. The patient was transferred to the recovery room in satisfactory condition. Mariaelena Hawk MD cc: [phone] TT: 05/08/2017 20:46:58 dn
--- NOTE | 2017-05-08 23:05 | CP.PCM.PN ---
Subjective - Date & Time of Evaluation Date of Evaluation: 05/08/17 Time of Evaluation: 16:45 - Subjective Subjective: Patient had cysto this am with Dr Hawk. Pulmonary nodules on CT scan of the lung.. Oncology consult also .requested Objective - Vital Signs/Intake and Output Vital Signs (last 24 hours): Temp Pulse Resp BP Pulse Ox 97.7 F 91 H 19 150/84 93 L 05/08/17 10:57 05/08/17 14:00 05/08/17 10:57 05/08/17 14:00 05/08/17 10:57 Intake and Output: 05/08/17 05/09/17 18:59 06:59 Intake Total 1750 Output Total 1900 Balance -150 - Medications Medications: Current Medications Diltiazem HCl (Cardizem) 30 mg PO Q8H [facility] Last Admin: 05/08/17 21:20 Dose: 30 mg Dextrose/Sodium Chloride (Dextrose 5%/0.45% Ns 1000 Ml) 1,000 mls @ 120 mls/hr IV .Q8H20M [facility] Last Admin: 05/08/17 20:00 Dose: 120 mls/hr Ceftriaxone Sodium (Rocephin Iv 1 Gm Duplex) 50 mls @ 100 mls/hr IVPB DAILY [facility] Last Admin: 05/08/17 10:00 Dose: Not Given Metoprolol Succinate (Toprol Xl) 25 mg PO Q12 [facility] Last Admin: 05/08/17 21:20 Dose: 25 mg Pantoprazole Sodium (Protonix Ec Tab) 40 mg PO DAILY [facility] Last Admin: 05/08/17 10:00 Dose: Not Given Rosuvastatin Calcium (Crestor) 5 mg PO HS [facility] Last Admin: 05/08/17 21:20 Dose: 5 mg Tramadol HCl (Ultram) 50 mg PO Q4 PRN PRN Reason: for pain Last Admin: 05/07/17 19:45 Dose: 50 mg - Labs Labs: 05/08/17 07:00 05/08/17 07:00 PT 14.0 SECONDS (9.7-12.2) H 05/07/17 06:54 INR 1.2 05/07/17 06:54 - Constitutional Appears: No Acute Distress - Head Exam Head Exam: NORMOCEPHALIC - Eye Exam Eye Exam: Normal appearance Pupil Exam: NORMAL ACCOMODATION - Neck Exam Neck Exam: Normal Inspection - Respiratory Exam Respiratory Exam: Decreased Breath Sounds - Cardiovascular Exam Cardiovascular Exam: Irregular Rhythm - GI/Abdominal Exam GI & Abdominal Exam: Normal Bowel Sounds - Exam Exam: NORMAL INSPECTION - Extremities Exam Extremities Exam: Tenderness - Back Exam Back Exam: NORMAL INSPECTION - Neurological Exam Neurological Exam: Oriented x3 - Psychiatric Exam Psychiatric exam: Normal Affect - Skin Skin Exam: Dry Assessment and Plan (1) Degenerative joint disease Status: Acute (2) ASHD (arteriosclerotic heart disease) Status: Acute (3) Elevated PSA, greater than or equal to 20 ng/ml Status: Acute (4) Gross hematuria Status: Acute (5) Renal insufficiency Status: Acute (6) Urinary retention Status: Acute
[2017-05-09] MEDS: Dextrose 5%/0.45% NS 1,000 ML IV SCH ×2 (04:00→10:28)
[2017-05-09 06:15] LABS: MEAN CELL VOLUME 81.1 fL (80.0-94.0); MEAN CORPUSCULAR HEMOGLOBIN 25.3 pg (27.0-31.0); MEAN CORPUSCULAR HGB CONC 31.3 g/dL (33.0-37.0); MEAN PLATELET VOLUME 8.5 fL (7.2-11.7); RED CELL DISTRIBUTION WIDTH 18.5 % (11.5-14.5); WHITE BLOOD COUNT 14.1 K/uL (4.8-10.8)
[2017-05-09 06:19] LABS: INR 1.1
[2017-05-09 06:53] LABS: POTASSIUM 5.4 mmol/L (3.6-5.2)
[2017-05-09 06:55] LABS: ALB/GLOB RATIO 0.8 (1.0-2.1); BILIRUBIN,TOTAL 0.6 mg/dL (0.2-1.3); TOTAL PROTEIN 5.4 g/dL (6.3-8.3)
[2017-05-09 06:56] LABS: CALCIUM 7.5 mg/dl (8.6-10.4)
--- NOTE | 2017-05-09 09:11 | VASCLAB ---
PROCEDURE: Lower Extremity Venous Duplex Exam. HISTORY: swelling PRIORS: None. TECHNIQUE: Bilateral common femoral, femoral, popliteal and posterior tibial, peroneal and great saphenous veins were evaluated. Flow was assessed with color Doppler, compressibility, assessment of phasic flow and augmentation response. Report prepared by Armaan Martínez, NICOLE, RVT FINDINGS: RIGHT: 1. Common Femoral Vein: 1.1. Compressibility - Fully compressible: Thrombus - None : Flow - Phasic: Augmentation -Normal: Reflux - None. 2. Femoral Vein: 2.1. Compressibility - Fully compressible: Thrombus - None : Flow - Phasic: Augmentation -Normal: Reflux - None. 3. Popliteal Vein: 3.1. Compressibility - Fully compressible: Thrombus - None : Flow - Phasic: Augmentation -Normal: Reflux - None. 4. Posterior Tibial Vein: 4.1. Compressibility - Fully compressible: Thrombus - None: Flow - Phasic: Augmentation -Normal: Reflux - None. 5. Peroneal Vein: 5.1. Compressibility - Fully compressible: Thrombus - None: Flow - Phasic: Augmentation -Normal: Reflux - None. 6. Great Saphenous Vein: 6.1. Compressibility - Fully compressible: Thrombus - None: Flow - Phasic: Augmentation - Normal: Reflux - Severe. LEFT: 1. Common Femoral Vein: 1.1. Compressibility - Fully compressible: Thrombus - None: Flow - Phasic: Augmentation -Normal: Reflux - None. 2. Femoral Vein: 2.1. Compressibility - Fully compressible: Thrombus - None: Flow - Phasic: Augmentation -Normal: Reflux - None. 3. Popliteal Vein: 3.1. Compressibility - Fully compressible: Thrombus - None : Flow - Phasic: Augmentation -Normal: Reflux - None. 4. Posterior Tibial Vein: 4.1. Compressibility - Fully compressible: Thrombus - None: Flow - Phasic: Augmentation -Normal: Reflux - None. 5. Peroneal Vein: 5.1. Compressibility - Fully compressible: Thrombus - None: Flow - Phasic: Augmentation -Normal: Reflux - None. 6. Great Saphenous Vein: 6.1. Compressibility - Fully compressible: Thrombus - None: Flow - Phasic: Augmentation - Normal: Reflux - None. OTHER FINDINGS: Right: Severe valvular incompetence of the right greater saphenous vein. Left: None significant. IMPRESSION: Right: No evidence of deep or superficial vein thrombosis of the right lower extremity. Left: No evidence of deep or superficial vein thrombosis of the left lower extremity. Normal valve function noted of the left side.
[2017-05-09] MEDS: cefTRIAXone IV 1 gm in Dextros 50 ML IVPB SCH (10:33)
[2017-05-09] MEDS: Pantoprazole 40 mg EC Tab PO SCH (10:34)
[2017-05-09] MEDS: Metoprolol Succinate 25 mg XL Tab PO SCH ×2 (10:35→22:47)
--- NOTE | 2017-05-09 12:06 | CP.PCM.PN ---
Subjective - Date & Time of Evaluation Date of Evaluation: 05/09/17 Time of Evaluation: 12:03 - Subjective Subjective: s/p cysto, TURBT On CBI No new complaints; very weak Creat increased to 6.1, K-5.4 No nausea, vomiting, CPs, SOB Objective - Vital Signs/Intake and Output Vital Signs (last 24 hours): Temp Pulse Resp BP Pulse Ox 97.9 F 91 H 20 132/74 95 05/09/17 07:52 05/09/17 07:52 05/09/17 07:52 05/09/17 10:36 05/09/17 07:52 Intake and Output: 05/09/17 05/09/17 06:59 18:59 Intake Total 1260 Output Total 2000 Balance -740 - Medications Medications: Current Medications Diltiazem HCl (Cardizem) 30 mg PO Q8H [facility] Last Admin: 05/09/17 06:12 Dose: 30 mg Dextrose/Sodium Chloride (Dextrose 5%/0.45% Ns 1000 Ml) 1,000 mls @ 120 mls/hr IV .Q8H20M [facility] Last Admin: 05/09/17 10:28 Dose: 120 mls/hr Ceftriaxone Sodium (Rocephin Iv 1 Gm Duplex) 50 mls @ 100 mls/hr IVPB DAILY [facility] Last Admin: 05/09/17 10:33 Dose: 100 mls/hr Metoprolol Succinate (Toprol Xl) 25 mg PO Q12 [facility] Last Admin: 05/09/17 10:35 Dose: 25 mg Pantoprazole Sodium (Protonix Ec Tab) 40 mg PO DAILY [facility] Last Admin: 05/09/17 10:34 Dose: 40 mg Rosuvastatin Calcium (Crestor) 5 mg PO HS [facility] Last Admin: 05/08/17 21:20 Dose: 5 mg Tramadol HCl (Ultram) 50 mg PO Q4 PRN PRN Reason: for pain Last Admin: 05/07/17 19:45 Dose: 50 mg - Labs Labs: 05/09/17 06:03 05/09/17 06:03 PT 12.4 SECONDS (9.7-12.2) H 05/09/17 06:03 INR 1.1 05/09/17 06:03 APTT 27 SECONDS (21-34) 05/09/17 06:03 - Constitutional Appears: No Acute Distress, Chronically Ill - Head Exam Head Exam: ATRAUMATIC, NORMAL INSPECTION - Eye Exam Eye Exam: EOMI, Normal appearance - Neck Exam Neck Exam: Normal Inspection. absent: Tenderness - Respiratory Exam Respiratory Exam: Clear to Ausculation Bilateral, NORMAL BREATHING PATTERN - Cardiovascular Exam Cardiovascular Exam: Irregular Rhythm, +S1 - GI/Abdominal Exam GI & Abdominal Exam: Soft. absent: Tenderness - Extremities Exam Extremities Exam: Normal Inspection. absent: Tenderness - Neurological Exam Neurological Exam: Alert, CN II-XII Intact - Skin Skin Exam: Dry, Warm Assessment and Plan (1) DEBORAH (acute kidney injury) Status: Acute (2) Bilateral hydronephrosis Status: Acute (3) Degenerative joint disease Status: Acute (4) Elevated PSA, greater than or equal to 20 ng/ml Status: Acute (5) Gross hematuria Status: Acute - Assessment and Plan (Free Text) Plan: Repeat chemistries; if not better will arrange for dialysis today Discussed with - no other intervention possible now Continue on CBI
[2017-05-09 12:32] LABS: POTASSIUM 5.7 mmol/L (3.6-5.2)
[2017-05-09] MEDS ORDERED: HEPARIN-NS 5,000 UNITS/500 ML 5,000 UNIT/500 ML BAG IV ONE (16:06)
[2017-05-09] MEDS ORDERED: Lidocaine 2% Inj (20ml) ONE (16:06)
[2017-05-09] MEDS ORDERED: Iohexol 240 (50 ml) ONE (17:06)
--- NOTE | 2017-05-09 18:01 | RAD ---
HISTORY: Right subclavian PermCath attempts COMPARISON: 05/07/2017. CT thorax FINDINGS: LUNGS: Persistent extensive infiltrates primarily in the left lung and to lesser extent right lung. PLEURA: No pneumothorax following central line attempts. Pleural effusions better appreciated on the recent CT scan and the current chest x-ray. CARDIOVASCULAR: Normal. OSSEOUS STRUCTURES: No significant abnormalities. VISUALIZED UPPER ABDOMEN: Normal. OTHER FINDINGS: None. IMPRESSION: No pneumothorax/ adverse findings following PermCath placement attempt. Stable infiltrates particularly affecting left lower lobe.
--- NOTE | 2017-05-09 18:18 | PCM.SURG1 ---
Surgeon's Initial Post Op Note - Surgeon's Notes Surgeon: Carolynn Rn Surgery: Padmini PGY2 Type of Anesthesia: Local Pre-Operative Diagnosis: Kidney failure Operative Findings: no significant findings Post-Operative Diagnosis: same Operation Performed: 1) Attempted R IJ and R subclavian permacath. 2) R Femoral permacath Specimen/Specimens Removed: none Estimated Blood Loss: EBL {In ML}: 30 Blood Products Given: N/A Drains Used: No Drains Post-Op Condition: Good Date of Surgery/Procedure: 05/09/17 Time of Surgery/Procedure: 18:25
--- NOTE | 2017-05-09 20:16 | OP ---
PROCEDURE DATE: 05/09/2017 PREOPERATIVE DIAGNOSIS: Renal failure. POSTOPERATIVE DIAGNOSIS: Renal failure. PROCEDURE CARRIED OUT: Attempted placement of dialysis catheter via right jugular and subclavian and then eventual placement of Perm-A-Cath via right femoral vein with ultrasound guidance. SURGEON: Isauro Pradhan Jr., MD MERCHANDISING MANAGER: Dr. Washington, resident. ANESTHESIOLOGIST: Myself, 1% Xylocaine. INDICATIONS: An 81-year-old man with renal insufficiency, who requires urgent dialysis because of el evated BUN and creatinine. OPERATIVE FINDINGS: Jugular vein was small on the right side. We initially attempted to puncture __ ___ the carotid artery with micropuncture technique, stopped, and then went and attempted subclavian on that side. Again, punctured subclavian vein, immediately recognized micropuncture technique. We then stopped this and went to the right femoral vein. Placed it with ultrasound guidance. We preser nohelia the left side in case he needs permanent access. PROCEDURE: The patient was given local anesthesia and attempts were made at puncturing the right sub clavian and jugular vein unsuccessfully despite the use of ultrasound guidance as the right jugular v ein was poorly developed. We then, after attempting the subclavian, went to the femoral vein, punctu red this uneventfully. Initially, we placed a 20-cm long catheter, which was just below the confluen ce of the veins, and at this point, we had some difficulty with flow. We then placed a 25 cm Perm-A- Cath all the way up into the vena cava with excellent flow. Flushed with heparinized saline, secured it to the skin, tunneled appropriately, and terminated the procedure. Chest x-rays are pending. Isauro Pradhan Jr., MD cc: [phone] TT: 05/09/2017 20:15:32 mt
--- NOTE | 2017-05-09 22:14 | CP.PCM.PN ---
Subjective - Date & Time of Evaluation Date of Evaluation: 05/09/17 Time of Evaluation: 13:15 - Subjective Subjective: Patient is alert and responsive. Creatinine going up. He will need dialysis. Objective - Vital Signs/Intake and Output Vital Signs (last 24 hours): Temp Pulse Resp BP Pulse Ox 98.8 F 74 18 103/59 L 96 05/09/17 21:25 05/09/17 21:25 05/09/17 21:25 05/09/17 21:25 05/09/17 21:25 Intake and Output: 05/09/17 05/10/17 18:59 06:59 Intake Total 1560 Output Total 2200 Balance -640 - Medications Medications: Current Medications Diltiazem HCl (Cardizem) 30 mg PO Q8H [facility] Last Admin: 05/09/17 06:12 Dose: 30 mg Dextrose/Sodium Chloride (Dextrose 5%/0.45% Ns 1000 Ml) 1,000 mls @ 120 mls/hr IV .Q8H20M [facility] Last Admin: 05/09/17 10:28 Dose: 120 mls/hr Ceftriaxone Sodium (Rocephin Iv 1 Gm Duplex) 50 mls @ 100 mls/hr IVPB DAILY [facility] Last Admin: 05/09/17 10:33 Dose: 100 mls/hr Metoprolol Succinate (Toprol Xl) 25 mg PO Q12 [facility] Last Admin: 05/09/17 10:35 Dose: 25 mg Pantoprazole Sodium (Protonix Ec Tab) 40 mg PO DAILY [facility] Last Admin: 05/09/17 10:34 Dose: 40 mg Rosuvastatin Calcium (Crestor) 5 mg PO HS [facility] Last Admin: 05/08/17 21:20 Dose: 5 mg Tramadol HCl (Ultram) 50 mg PO Q4 PRN PRN Reason: for pain Last Admin: 05/07/17 19:45 Dose: 50 mg - Labs Labs: 05/09/17 06:03 05/09/17 12:09 PT 12.4 SECONDS (9.7-12.2) H 05/09/17 06:03 INR 1.1 05/09/17 06:03 APTT 27 SECONDS (21-34) 05/09/17 06:03 - Constitutional Appears: No Acute Distress - Head Exam Head Exam: NORMAL INSPECTION - Eye Exam Eye Exam: Normal appearance Pupil Exam: NORMAL ACCOMODATION - ENT Exam ENT Exam: Normal Exam - Neck Exam Neck Exam: Normal Inspection - Respiratory Exam Respiratory Exam: Decreased Breath Sounds - Cardiovascular Exam Cardiovascular Exam: REGULAR RHYTHM - GI/Abdominal Exam GI & Abdominal Exam: Normal Bowel Sounds - Rectal Exam Rectal Exam: Deferred - Exam Exam: NORMAL INSPECTION - Extremities Exam Extremities Exam: Tenderness - Back Exam Back Exam: NORMAL INSPECTION - Neurological Exam Neurological Exam: Oriented x3 - Psychiatric Exam Psychiatric exam: Normal Affect - Skin Skin Exam: Dry Assessment and Plan (1) Degenerative joint disease Status: Acute (2) ASHD (arteriosclerotic heart disease) Status: Acute (3) Elevated PSA, greater than or equal to 20 ng/ml Status: Acute (4) Gross hematuria Status: Acute (5) Renal insufficiency Status: Acute (6) Urinary retention Status: Acute
[2017-05-10] MEDS: Dextrose 5%/0.45% NS 1,000 ML IV SCH ×2 (01:11→03:53)
--- NOTE | 2017-05-10 07:22 | CP.PCM.PN ---
Subjective - Date & Time of Evaluation Date of Evaluation: 05/10/17 Time of Evaluation: 07:19 - Subjective Subjective: SURGERY PROGRESS NOTE FOR DR. GARCIA 81M seen and examined at bedside. No pain at site of catheter inserted yesterday. Dressing CDI. Objective - Vital Signs/Intake and Output Vital Signs (last 24 hours): Temp Pulse Resp BP Pulse Ox 98.1 F 69 20 131/64 93 L 05/09/17 23:29 05/10/17 00:00 05/09/17 23:29 05/09/17 23:29 05/09/17 23:29 Intake and Output: 05/10/17 05/10/17 06:59 18:59 Intake Total 1120 Output Total 1200 Balance -80 - Medications Medications: Current Medications Diltiazem HCl (Cardizem) 30 mg PO Q8H [facility] Last Admin: 05/10/17 06:28 Dose: Not Given Dextrose/Sodium Chloride (Dextrose 5%/0.45% Ns 1000 Ml) 1,000 mls @ 120 mls/hr IV .Q8H20M [facility] Last Admin: 05/10/17 03:53 Dose: Not Given Ceftriaxone Sodium (Rocephin Iv 1 Gm Duplex) 50 mls @ 100 mls/hr IVPB DAILY [facility] Last Admin: 05/09/17 10:33 Dose: 100 mls/hr Metoprolol Succinate (Toprol Xl) 25 mg PO Q12 [facility] Last Admin: 05/09/17 22:47 Dose: 25 mg Pantoprazole Sodium (Protonix Ec Tab) 40 mg PO DAILY [facility] Last Admin: 05/09/17 10:34 Dose: 40 mg Rosuvastatin Calcium (Crestor) 5 mg PO HS [facility] Last Admin: 05/09/17 22:47 Dose: 5 mg Tramadol HCl (Ultram) 50 mg PO Q4 PRN PRN Reason: for pain Last Admin: 05/07/17 19:45 Dose: 50 mg - Labs Labs: 05/09/17 06:03 05/09/17 12:09 PT 12.4 SECONDS (9.7-12.2) H 05/09/17 06:03 INR 1.1 05/09/17 06:03 APTT 27 SECONDS (21-34) 05/09/17 06:03 - Constitutional Appears: Non-toxic, No Acute Distress - Respiratory Exam Respiratory Exam: Clear to Ausculation Bilateral, NORMAL BREATHING PATTERN - Cardiovascular Exam Cardiovascular Exam: REGULAR RHYTHM, +S1, +S2 - Extremities Exam Additional comments: r groin catheter in place. dressing CDI Assessment and Plan - Assessment and Plan (Free Text) Assessment: 81M S/P Right femoral catheter placement POD1 - Dressing management - no surgical intervention at this time
[2017-05-10 08:43] LABS: BASO % 0.1 % (0.0-2.0); HEMATOCRIT 25.6 % (35.0-51.0); LYMPH # 0.5 K/uL (1.0-4.3); LYMPH % 3.3 % (20.0-40.0); MEAN CELL VOLUME 80.4 fL (80.0-94.0); MEAN CORPUSCULAR HEMOGLOBIN 25.8 pg (27.0-31.0); MEAN PLATELET VOLUME 8.5 fL (7.2-11.7); MONO # 1.8 K/uL (0.0-0.8); MONO % 12.6 % (0.0-10.0); PLATELET COUNT 126 K/uL (130-400); RED CELL DISTRIBUTION WIDTH 19.3 % (11.5-14.5); WHITE BLOOD COUNT 14.1 K/uL (4.8-10.8)
[2017-05-10 09:01] LABS: POTASSIUM 4.7 mmol/L (3.6-5.2)
[2017-05-10 09:05] LABS: CALCIUM 7.2 mg/dl (8.6-10.4)
[2017-05-10] MEDS: Pantoprazole 40 mg EC Tab PO SCH (09:48)
[2017-05-10] MEDS: Metoprolol Succinate 25 mg XL Tab PO SCH ×2 (09:48→21:38)
[2017-05-10] MEDS: cefTRIAXone IV 1 gm in Dextros 50 ML IVPB SCH (09:48)
--- NOTE | 2017-05-10 10:55 | CP.PCM.PN ---
Subjective - Date & Time of Evaluation Date of Evaluation: 05/10/17 Time of Evaluation: 10:55 - Subjective Subjective: s/p hd yesterday -uneventful ongoing cbi - pinkish urine s/p permcath labs noted pt denies any abd pain / n/v/d Objective - Vital Signs/Intake and Output Vital Signs (last 24 hours): Temp Pulse Resp BP Pulse Ox 98.1 F 69 20 131/64 93 L 05/09/17 23:29 05/10/17 00:00 05/09/17 23:29 05/09/17 23:29 05/09/17 23:29 Intake and Output: 05/10/17 05/10/17 06:59 18:59 Intake Total 1120 Output Total 1200 Balance -80 - Medications Medications: Current Medications Diltiazem HCl (Cardizem) 30 mg PO Q8H [facility] Last Admin: 05/10/17 06:28 Dose: Not Given Ceftriaxone Sodium (Rocephin Iv 1 Gm Duplex) 50 mls @ 100 mls/hr IVPB DAILY [facility] Last Admin: 05/10/17 09:48 Dose: 100 mls/hr Metoprolol Succinate (Toprol Xl) 25 mg PO Q12 [facility] Last Admin: 05/10/17 09:48 Dose: 25 mg Pantoprazole Sodium (Protonix Ec Tab) 40 mg PO DAILY [facility] Last Admin: 05/10/17 09:48 Dose: 40 mg Rosuvastatin Calcium (Crestor) 5 mg PO HS [facility] Last Admin: 05/09/17 22:47 Dose: 5 mg Tramadol HCl (Ultram) 50 mg PO Q4 PRN PRN Reason: for pain Last Admin: 05/07/17 19:45 Dose: 50 mg - Labs Labs: 05/10/17 08:29 05/10/17 08:29 PT 12.4 SECONDS (9.7-12.2) H 05/09/17 06:03 INR 1.1 05/09/17 06:03 APTT 27 SECONDS (21-34) 05/09/17 06:03 - Constitutional Appears: Non-toxic, No Acute Distress, Cachectic, Chronically Ill - Head Exam Head Exam: NORMAL INSPECTION - Eye Exam Eye Exam: Normal appearance - ENT Exam ENT Exam: Mucous Membranes Moist, Normal Exam - Neck Exam Neck Exam: Normal Inspection - Respiratory Exam Respiratory Exam: Clear to Ausculation Bilateral, NORMAL BREATHING PATTERN - Cardiovascular Exam Cardiovascular Exam: REGULAR RHYTHM, RRR - GI/Abdominal Exam GI & Abdominal Exam: Soft, Diminished Bowel Sounds - Extremities Exam Extremities Exam: Normal Inspection Assessment and Plan (1) DEBORAH (acute kidney injury) Status: Acute (2) Bilateral hydronephrosis Status: Acute (3) Gross hematuria Status: Acute (4) Renal insufficiency Status: Acute (5) Urinary retention Status: Acute - Assessment and Plan (Free Text) Assessment: maintain hd mwf, pt will likely need chronic dialysis next treatment tomorrow outpatient placement low hgb noted, no thanh-active cancer. check iron stores
[2017-05-10 11:06] LABS: NEUTROPHIL 89 % (50-75); TOTAL CELLS COUNTED 100
--- NOTE | 2017-05-10 16:27 | PCM.URO ---
Urology Progress Note - Objective Lab Results Last 24 Hours: Laboratory Results - last 24 hr 05/09/17 05/09/17 05/09/17 14:22 19:03 19:03 WBC RBC Hgb Hct MCV MCH MCHC RDW Plt Count MPV Neut % (Auto) Lymph % (Auto) Bacon % (Auto) Eos % (Auto) Baso % (Auto) Neut # Lymph # Bacon # Eos # Baso # Neutrophils % (Manual) Band Neutrophils % Lymphocytes % (Manual) Monocytes % (Manual) Platelet Estimate Hypochromasia (manual) Anisocytosis (manual) Target Cells Ovalocytes [place] Cells Sodium Potassium Chloride Carbon Dioxide Anion Gap BUN Creatinine Est GFR ( Amer) Est GFR (Non-Af Amer) Random Glucose Calcium Ur Random Sodium < 5.0 Hep Bs Antigen Negative Hep Bs Antibody Negative Hep B Core IgM Ab Negative Hepatitis C Antibody Negative 05/10/17 05/10/17 08:29 08:29 WBC 14.1 H RBC 3.18 L Hgb 8.2 L Hct 25.6 L MCV 80.4 MCH 25.8 L MCHC 32.0 L RDW 19.3 H Plt Count 126 L MPV 8.5 Neut % (Auto) 84.0 H Lymph % (Auto) 3.3 L Bacon % (Auto) 12.6 H Eos % (Auto) 0.0 Baso % (Auto) 0.1 Neut # 11.9 H Lymph # 0.5 L Bacon # 1.8 H Eos # 0.0 Baso # 0.0 Neutrophils % (Manual) 89 H Band Neutrophils % 3 H Lymphocytes % (Manual) 5 L Monocytes % (Manual) 3 Platelet Estimate Slightly decreased L Hypochromasia (manual) Slight Anisocytosis (manual) Slight Target Cells Slight Ovalocytes Slight [place] Cells Slight Sodium 130 L Potassium 4.7 Chloride 96 L Carbon Dioxide 23 Anion Gap 16 BUN 58 H Creatinine 4.8 H Est GFR ( Amer) 14 Est GFR (Non-Af Amer) 12 Random Glucose 122 H Calcium 7.2 L Ur Random Sodium Hep Bs Antigen Hep Bs Antibody Hep B Core IgM Ab Hepatitis C Antibody Intake & Output: Intake & Output 05/09/17 05/10/17 05/10/17 18:59 06:59 18:59 Intake Total 1560 1120 90147 Output Total 2200 1200 88112 Balance -640 80 -3040 Weight 138 lb 3.677 oz Intake: Intake, IV Amount 960 120 100 Right Forearm 960 120 100 Oral 600 960 Other 1000 83719 Output: Urine 2200 1200 92965 3-way Urethral 2200 600 3300 Other: # Voids 3-way Urethral 800 # Bowel Movements 0 0 Vital Signs: Vital Signs - 24 hr 05/09/17 05/09/17 05/09/17 18:20 18:25 18:40 Temperature 98 F 98 F Pulse Rate 98 H Pulse Rate [ 98 H Left Brachial] Respiratory 20 20 Rate Blood Pressure 119/87 Blood Pressure 119/87 151/87 H [Left Arm] O2 Sat by Pulse 100 Oximetry 05/09/17 05/09/17 05/09/17 18:55 19:10 19:25 Temperature Pulse Rate Pulse Rate [ Left Brachial] Respiratory Rate Blood Pressure Blood Pressure 143/81 135/87 126/65 [Left Arm] O2 Sat by Pulse Oximetry 05/09/17 05/09/17 05/09/17 19:55 20:21 20:25 Temperature Pulse Rate 98 H Pulse Rate [ Left Brachial] Respiratory 20 Rate Blood Pressure 119/87 Blood Pressure 149/83 140/53 L [Left Arm] O2 Sat by Pulse Oximetry 05/09/17 05/09/17 05/09/17 20:55 21:25 22:30 Temperature 98.8 F Pulse Rate 81 Pulse Rate [ 74 Left Brachial] Respiratory 18 Rate Blood Pressure Blood Pressure 119/56 L 103/59 L [Left Arm] O2 Sat by Pulse 96 Oximetry 05/09/17 05/10/17 05/10/17 23:29 00:00 08:00 Temperature 98.1 F 98.3 F Pulse Rate 82 69 88 Pulse Rate [ Left Brachial] Respiratory 20 20 Rate Blood Pressure 131/64 152/66 H Blood Pressure [Left Arm] O2 Sat by Pulse 93 L 92 L Oximetry
--- NOTE | 2017-05-10 17:36 | RAD ---
PROCEDURE: Intraoperative Fluoroscopy. HISTORY: PERMACATH RIGHT GROIN FINDINGS: Fluoroscopic assistance was provided. Approximately 145.9 seconds fluoroscopy time utilized during procedure. Radiation dose = 43.59 mGy.
[2017-05-10] MEDS: Albuterol 0.042% Inhal Sol (1.25 mg/3 mL) UD INH SCH (20:07)
--- NOTE | 2017-05-10 22:22 | CP.PCM.PN ---
Subjective - Date & Time of Evaluation Date of Evaluation: 05/10/17 Time of Evaluation: 13:10 - Subjective Subjective: Patient underwent dialysis and tolerated the procedure well. Still has pinkish urine. Latest Hct 25 . May need transfusion. Objective - Vital Signs/Intake and Output Vital Signs (last 24 hours): Temp Pulse Resp BP Pulse Ox 98.3 F 99 H 20 164/79 H 93 L 05/10/17 21:40 05/10/17 21:40 05/10/17 16:00 05/10/17 21:40 05/10/17 16:00 Intake and Output: 05/10/17 05/11/17 18:59 06:59 Intake Total 33577 100 Output Total 73878 Balance -3040 100 - Medications Medications: Current Medications Albuterol Sulfate (Albuterol 0.042% Inhal Ingris (1.25mg/3ml) Ud) 1.25 mg INH RQ6 [facility] Last Admin: 05/10/17 20:07 Dose: 1.25 mg Diltiazem HCl (Cardizem) 30 mg PO Q8H [facility] Last Admin: 05/10/17 21:37 Dose: 30 mg Ceftriaxone Sodium (Rocephin Iv 1 Gm Duplex) 50 mls @ 100 mls/hr IVPB DAILY [facility] Last Admin: 05/10/17 09:48 Dose: 100 mls/hr Metoprolol Succinate (Toprol Xl) 25 mg PO Q12 [facility] Last Admin: 05/10/17 21:38 Dose: 25 mg Pantoprazole Sodium (Protonix Ec Tab) 40 mg PO DAILY [facility] Last Admin: 05/10/17 09:48 Dose: 40 mg Rosuvastatin Calcium (Crestor) 5 mg PO HS [facility] Last Admin: 05/10/17 21:37 Dose: 5 mg Tramadol HCl (Ultram) 50 mg PO Q4 PRN PRN Reason: for pain Last Admin: 05/07/17 19:45 Dose: 50 mg - Labs Labs: 05/10/17 08:29 05/10/17 08:29 PT 12.4 SECONDS (9.7-12.2) H 05/09/17 06:03 INR 1.1 05/09/17 06:03 APTT 27 SECONDS (21-34) 05/09/17 06:03 - Constitutional Appears: No Acute Distress - Head Exam Head Exam: NORMAL INSPECTION - Eye Exam Eye Exam: Normal appearance Pupil Exam: NORMAL ACCOMODATION - ENT Exam ENT Exam: Normal Exam - Neck Exam Neck Exam: Normal Inspection - Respiratory Exam Respiratory Exam: Decreased Breath Sounds - Cardiovascular Exam Cardiovascular Exam: Irregular Rhythm - GI/Abdominal Exam GI & Abdominal Exam: Normal Bowel Sounds - Rectal Exam Rectal Exam: Deferred - Exam Exam: NORMAL INSPECTION - Extremities Exam Extremities Exam: Tenderness - Back Exam Back Exam: NORMAL INSPECTION - Neurological Exam Neurological Exam: Oriented x3 - Psychiatric Exam Psychiatric exam: Normal Affect - Skin Skin Exam: Dry Assessment and Plan (1) Degenerative joint disease Status: Acute (2) ASHD (arteriosclerotic heart disease) Status: Acute (3) Elevated PSA, greater than or equal to 20 ng/ml Status: Acute (4) Gross hematuria Status: Acute (5) Renal insufficiency Status: Acute (6) Urinary retention Status: Acute
[2017-05-11] MEDS: Albuterol 0.042% Inhal Sol (1.25 mg/3 mL) UD INH SCH (01:36)
--- NOTE | 2017-05-11 08:23 | CON ---
DATE: 05/10/2017 Thank you for asking me to see the patient . I have interviewed the patient. . I have re viewed the patient's chart and the lab data so far. I have received more of the details on the consult sheet, along with the plan. Gregorio Jones MD cc: [id number] TT: 05/10/2017 17:02:12 Confirmation # [id number] Dictation # [id number] dn 05/11/2017 07:22:40
[2017-05-11] MEDS: Metoprolol Succinate 25 mg XL Tab PO SCH ×2 (10:00→21:37)
--- NOTE | 2017-05-11 11:56 | PCM.URO ---
Urology Progress Note - Objective Lab Results Last 24 Hours: Laboratory Results - last 24 hr 05/11/17 05/11/17 06:41 06:41 % Saturation 9 L Ferritin 116.0 Intake & Output: Intake & Output 05/10/17 05/11/17 05/11/17 18:59 06:59 18:59 Intake Total 71883 100 6100 Output Total 36416 3100 6500 Balance -3040 -3000 -400 Intake: Intake, IV Amount 100 Right Forearm 100 Oral 960 100 100 Other 69461 6000 Output: Urine 61407 3100 6500 3-way Urethral 3300 3100 250 Other: # Voids 3-way Urethral 800 # Bowel Movements 0 1 1 Vital Signs: Vital Signs - 24 hr 05/10/17 05/10/17 05/10/17 16:00 21:40 22:57 Temperature 98.0 F 98.3 F Pulse Rate 96 H 99 H 84 Pulse Rate [ Left Brachial] Respiratory 20 Rate Blood Pressure 162/78 H 164/79 H Blood Pressure [Left Arm] O2 Sat by Pulse 93 L Oximetry 05/10/17 05/11/17 05/11/17 23:25 00:00 08:00 Temperature 98.5 F 98.8 F Pulse Rate 96 H 89 89 Pulse Rate [ Left Brachial] Respiratory 20 22 Rate Blood Pressure 149/85 175/79 H Blood Pressure [Left Arm] O2 Sat by Pulse 92 L 89 L Oximetry 05/11/17 05/11/17 05/11/17 09:30 09:45 10:00 Temperature 97.4 F L Pulse Rate 77 Pulse Rate [ 77 75 76 Left Brachial] Respiratory 18 16 15 Rate Blood Pressure 155/91 H Blood Pressure 152/80 H 154/83 H 150/77 [Left Arm] O2 Sat by Pulse 95 95 94 L Oximetry 05/11/17 05/11/17 05/11/17 10:30 11:00 11:30 Temperature Pulse Rate Pulse Rate [ 87 104 H 103 H Left Brachial] Respiratory 16 16 16 Rate Blood Pressure Blood Pressure 161/84 H 154/99 H 156/90 H [Left Arm] O2 Sat by Pulse 94 L 92 L 93 L Oximetry - Date & Time of Note Date: 05/11/17 Time: 11:56
[2017-05-11] MEDS: Albuterol 0.083% Inhal Sol (2.5 mg/3 mL) UD INH SCH ×2 (13:10→19:04)
[2017-05-11 13:53] LABS: ABG ALLEN TEST POS; ARTERIAL BLOOD HGB O2 SAT 94.2 % (95.0-98.0); CARBOXYHEMOGLOBIN 1.9 % (0.5-1.5); DRAW SITE RRAD; HHB 2.9 % (0.0-5.0)
[2017-05-11] MEDS ORDERED: MethylPREDNISolone 40 mg Vial IV SCH (14:00)
[2017-05-11] MEDS: Pantoprazole 40 mg EC Tab PO SCH (14:08)
[2017-05-11] MEDS: cefTRIAXone IV 1 gm in Dextros 50 ML IVPB SCH (14:09)
--- NOTE | 2017-05-11 14:17 | CP.PCM.PN ---
Subjective - Date & Time of Evaluation Date of Evaluation: 05/11/17 Time of Evaluation: 14:14 - Subjective Subjective: Seen at dialysis Has been very dyspneic- to UF 2000ml Still with CBI Still rather anemic- Fe stores low Will start IV Fe; avoid ESAs due to to bladder CA Objective - Vital Signs/Intake and Output Vital Signs (last 24 hours): Temp Pulse Resp BP Pulse Ox 97.9 F 104 H 20 152/80 H 93 L 05/11/17 14:00 05/11/17 14:00 05/11/17 14:00 05/11/17 14:00 05/11/17 14:00 Intake and Output: 05/11/17 05/11/17 06:59 18:59 Intake Total 100 6100 Output Total 3100 6500 Balance -3000 -400 - Medications Medications: Current Medications Albuterol Sulfate (Albuterol 0.083% Inhal Ingris (2.5 Mg/3 Ml) Ud) 2.5 mg INH RQ6 [facility] Last Admin: 05/11/17 13:10 Dose: 2.5 mg Diltiazem HCl (Cardizem) 30 mg PO Q8H [facility] Last Admin: 05/11/17 14:08 Dose: 30 mg Ceftriaxone Sodium (Rocephin Iv 1 Gm Duplex) 50 mls @ 100 mls/hr IVPB DAILY COUNT [facility]CLUD[facility] Last Admin: 05/11/17 14:09 Dose: 100 mls/hr Methylprednisolone (Solu-Medrol) 40 mg IV Q12 [facility] Metoprolol Succinate (Toprol Xl) 25 mg PO Q12 [facility] Last Admin: 05/11/17 10:00 Dose: Not Given Pantoprazole Sodium (Protonix Ec Tab) 40 mg PO DAILY [facility] Last Admin: 05/11/17 14:08 Dose: 40 mg Rosuvastatin Calcium (Crestor) 5 mg PO HS [facility] Last Admin: 05/10/17 21:37 Dose: 5 mg Tramadol HCl (Ultram) 50 mg PO Q4 PRN PRN Reason: for pain Last Admin: 05/07/17 19:45 Dose: 50 mg - Labs Labs: 05/10/17 08:29 05/10/17 08:29 PT 12.4 SECONDS (9.7-12.2) H 05/09/17 06:03 INR 1.1 05/09/17 06:03 APTT 27 SECONDS (21-34) 05/09/17 06:03 - Constitutional Appears: In Acute Distress, Chronically Ill - Head Exam Head Exam: ATRAUMATIC, NORMAL INSPECTION - Eye Exam Eye Exam: EOMI, Normal appearance, PERRL - Neck Exam Neck Exam: Normal Inspection. absent: Tenderness - Respiratory Exam Respiratory Exam: Rales, Respiratory Distress - Cardiovascular Exam Cardiovascular Exam: REGULAR RHYTHM, +S1 - GI/Abdominal Exam GI & Abdominal Exam: Soft. absent: Tenderness - Extremities Exam Extremities Exam: Normal Inspection. absent: Pedal Edema, Tenderness - Neurological Exam Neurological Exam: Alert, CN II-XII Intact - Skin Skin Exam: Dry, Warm Assessment and Plan (1) DEBORAH (acute kidney injury) Status: Acute (2) Bilateral hydronephrosis Status: Acute (3) Degenerative joint disease Status: Acute (4) Elevated PSA, greater than or equal to 20 ng/ml Status: Acute (5) Gross hematuria Status: Acute - Assessment and Plan (Free Text) Plan: Repeat HD in AM- increase UF Start IV FE f/u for further plans Might need outpt HD
[2017-05-11] MEDS ORDERED: Ferric Sodium Gluconat Complex 62.5 mg/5 ml Vial IVPB SCH (14:30)
--- NOTE | 2017-05-11 15:23 | PN ---
DATE: 05/11/2017 PHYSICAL EXAMINATION: GENERAL: The patient is alert, oriented. VITAL SIGNS: Afebrile with blood pressure 152/80, pulse 104, respirations 20, hemoglobin oxygen satu ration of 93%. The patient's dyspnea has decreased. There is no vomiting. HEART: Regular. There is no gallop rhythm. LUNGS: Diminished breath sounds over lung bases. ABDOMEN: Soft. EXTREMITIES: Legs, no edema. LABORATORY DATA: His white count of 14,100, hemoglobin 8.2, platelet count 126,000. ABGs on FIO2 of 2 liters per minute via nasal cannula shows pH of 7.46, pCO2 of 35, pO2 of 62, hemoglobin oxygen sat uration of 97%. CXR showed interstitial changes and infiltrate on the left mid zone and cardiomegaly . CT chest reported to be no changes associated with irregular small nodules on both sides. 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 The patient has long standing cardiac arrhythmias, atrial fibrillation, and has had multiple medications in the past. IMPRESSION: Respiratory insufficiency, bronchitis, interstitial pneumonitis, hematuria, prostatic ma ss, atrial fibrillation, degenerative joint disease, hypertensive cardiovascular disease. PLAN: To continue with the current medications including bronchodilators, antibiotics, vasodilators, oxygen therapy and continue with urology and renal followup. Will keep the patient at a little high er level of FiO2. Gregorio Jones MD cc: [id number] TT: 05/11/2017 15:21:57 Confirmation # [id number] Dictation # [id number] marisol
--- NOTE | 2017-05-11 22:18 | CP.PCM.PN ---
Subjective - Date & Time of Evaluation Date of Evaluation: 05/11/17 Time of Evaluation: 13:20 - Subjective Subjective: Patient has dyspena today. Hct 25. Iron infusion ordered by Dr Lucas. Continue supportive measures. Objective - Vital Signs/Intake and Output Vital Signs (last 24 hours): Temp Pulse Resp BP Pulse Ox 99.2 F 90 20 125/72 96 05/11/17 16:00 05/11/17 16:00 05/11/17 16:00 05/11/17 16:00 05/11/17 16:00 Intake and Output: 05/11/17 05/12/17 18:59 06:59 Intake Total 6630 Output Total 6500 Balance 130 - Medications Medications: Current Medications Albuterol Sulfate (Albuterol 0.083% Inhal Ingris (2.5 Mg/3 Ml) Ud) 2.5 mg INH RQ6 [facility] Last Admin: 05/11/17 19:04 Dose: 2.5 mg Diltiazem HCl (Cardizem) 30 mg PO Q8H [facility] Last Admin: 05/11/17 21:37 Dose: 30 mg Ferric Sodium Gluconate Complex (Ferrlecit) 125 mg IVPB DAILY [facility] Stop: 05/19/17 14:31 Last Admin: 05/11/17 17:05 Dose: 125 mg Ceftriaxone Sodium (Rocephin Iv 1 Gm Duplex) 50 mls @ 100 mls/hr IVPB DAILY [facility] Last Admin: 05/11/17 14:09 Dose: 100 mls/hr Methylprednisolone (Solu-Medrol) 40 mg IV Q12 [facility] Last Admin: 05/11/17 21:37 Dose: 40 mg Metoprolol Succinate (Toprol Xl) 25 mg PO Q12 [facility] Last Admin: 05/11/17 21:37 Dose: 25 mg Pantoprazole Sodium (Protonix Ec Tab) 40 mg PO DAILY [facility] Last Admin: 05/11/17 14:08 Dose: 40 mg Rosuvastatin Calcium (Crestor) 5 mg PO HS [facility] Last Admin: 05/11/17 21:37 Dose: 5 mg Tramadol HCl (Ultram) 50 mg PO Q4 PRN PRN Reason: for pain Last Admin: 05/07/17 19:45 Dose: 50 mg - Labs Labs: 05/10/17 08:29 05/10/17 08:29 PT 12.4 SECONDS (9.7-12.2) H 05/09/17 06:03 INR 1.1 05/09/17 06:03 APTT 27 SECONDS (21-34) 05/09/17 06:03 - Constitutional Appears: No Acute Distress - Head Exam Head Exam: NORMAL INSPECTION - Eye Exam Eye Exam: Normal appearance - ENT Exam ENT Exam: Normal Exam - Neck Exam Neck Exam: Normal Inspection - Respiratory Exam Respiratory Exam: Decreased Breath Sounds - Cardiovascular Exam Cardiovascular Exam: Irregular Rhythm - GI/Abdominal Exam GI & Abdominal Exam: Soft - Rectal Exam Rectal Exam: Deferred - Exam Exam: NORMAL INSPECTION - Extremities Exam Extremities Exam: Tenderness - Back Exam Back Exam: NORMAL INSPECTION - Neurological Exam Neurological Exam: Oriented x3 - Psychiatric Exam Psychiatric exam: Normal Mood - Skin Skin Exam: Dry Assessment and Plan (1) Degenerative joint disease Status: Acute (2) ASHD (arteriosclerotic heart disease) Status: Acute (3) Elevated PSA, greater than or equal to 20 ng/ml Status: Acute (4) Gross hematuria Status: Acute (5) Renal insufficiency Status: Acute (6) Urinary retention Status: Acute
[2017-05-12] MEDS: Albuterol 0.083% Inhal Sol (2.5 mg/3 mL) UD INH SCH ×4 (01:53→19:54)
[2017-05-12] MEDS: MethylPREDNISolone 40 mg Vial IV SCH ×2 (10:00→21:43)
[2017-05-12] MEDS: Metoprolol Succinate 25 mg XL Tab PO SCH ×2 (10:00→21:43)
--- NOTE | 2017-05-12 10:55 | RAD ---
Chest x-ray two views History: Pneumonitis. Comparison: 05/09/2017 Findings: Prominent consolidative changes seen within left mid to lower lung zone and to a lesser extent right lung base. Small to moderate left and small right pleural effusion. Diffuse prominent consolidative increased markings in both lung gu. Biapical pleural thickening. Bilateral hilar prominence. Lobulated calcified foci at the left lung base. Cardiomegaly. Calcification at the aortic knob. Degenerative changes in the spine with paravertebral osteophytes. Impression: No significant interval change.
--- NOTE | 2017-05-12 11:03 | CON ---
DATE: 05/12/2017 This is an 81-year-old man with a bladder mass and x-ray showing positive metastases to liver and urszula gs. The patient gives a poor history. He is able to lie flat in bed. He seems comfortable, but bharath y weak and tired. PHYSICAL EXAMINATION: SKIN: No petechiae, no bruises. HEENT: Anicteric. NODES: None palpable in the axillary, cervical, supraclavicular or inguinal regions. The patient do es have temporal wasting noted. LUNGS: Clear at present. No vertebral tenderness. The patient is able to lie flat. HEART: S1, S2. ABDOMEN: Shows no liver, no spleen, no tenderness, no ascites. EXTREMITIES: No edema. CENTRAL NERVOUS SYSTEM: No focal finding. The operative report from Dr. Hawk reveals a bladder mass. It is necrotic and bleeding. My suspi cion is that this is bladder cancer widely metastatic to his liver and to his lungs and presently, th e patient is on dialysis. PLAN: 1. We are awaiting the final pathology on the tumor. 2. The iron levels are low. His hemoglobin is in the 8 range with an MCV of 80. I would advise giv ing him intravenous Venofer, Ferrlecit, either with the dialysis or on days that he is not taking it. I will leave it to the renal people to decide. 3. Once we have a pathology report, we will then discuss whether he should get chemotherapy. The ch emotherapy would be Gemzar and carboplatin chemotherapy. There are some new agents now, monoclonal a ntibodies that have been approved for bladder cancer 3 weeks ago; however, initially, he would have t o get chemotherapy first and I think we would have to talk to the family about his prognosis if this is not curable. Celso Ross MD cc: [phone] TT: 05/12/2017 11:02:43 Confirmation # [id number] Dictation # [id number] tn
--- NOTE | 2017-05-12 11:20 | CP.PCM.PN ---
Subjective - Date & Time of Evaluation Date of Evaluation: 05/12/17 Time of Evaluation: 11:18 - Subjective Subjective: Seen at dialysis To UF 2800ml CBI removed Less SOB overall On IV Fe for anemia; ESAs not given due to CA hx Will need outpt HD arrangements follow up for bladder CA pending Objective - Vital Signs/Intake and Output Vital Signs (last 24 hours): Temp Pulse Resp BP Pulse Ox 98 F 94 H 17 151/79 H 93 L 05/12/17 09:25 05/12/17 09:25 05/12/17 09:25 05/12/17 09:25 05/12/17 08:00 Intake and Output: 05/12/17 05/12/17 06:59 18:59 Intake Total 600 Balance 600 - Medications Medications: Current Medications Albuterol Sulfate (Albuterol 0.083% Inhal Ingris (2.5 Mg/3 Ml) Ud) 2.5 mg INH RQ6 [facility] Last Admin: 05/12/17 07:23 Dose: 2.5 mg Diltiazem HCl (Cardizem) 30 mg PO Q8H [facility] Last Admin: 05/12/17 06:40 Dose: 30 mg Ferric Sodium Gluconate Complex (Ferrlecit) 125 mg IVPB DAILY [facility] Stop: 05/19/17 14:31 Last Admin: 05/11/17 17:05 Dose: 125 mg Ceftriaxone Sodium (Rocephin Iv 1 Gm Duplex) 50 mls @ 100 mls/hr IVPB DAILY [facility] Last Admin: 05/11/17 14:09 Dose: 100 mls/hr Methylprednisolone (Solu-Medrol) 20 mg IV Q12 [facility] Metoprolol Succinate (Toprol Xl) 25 mg PO Q12 [facility] Last Admin: 05/11/17 21:37 Dose: 25 mg Pantoprazole Sodium (Protonix Ec Tab) 40 mg PO DAILY [facility] Last Admin: 05/11/17 14:08 Dose: 40 mg Rosuvastatin Calcium (Crestor) 5 mg PO HS [facility] Last Admin: 05/11/17 21:37 Dose: 5 mg Tramadol HCl (Ultram) 50 mg PO Q4 PRN PRN Reason: for pain Last Admin: 05/07/17 19:45 Dose: 50 mg - Labs Labs: 05/10/17 08:29 05/10/17 08:29 PT 12.4 SECONDS (9.7-12.2) H 05/09/17 06:03 INR 1.1 05/09/17 06:03 APTT 27 SECONDS (21-34) 05/09/17 06:03 - Constitutional Appears: In Acute Distress, Chronically Ill - Head Exam Head Exam: ATRAUMATIC, NORMAL INSPECTION - Eye Exam Eye Exam: EOMI, Normal appearance - Neck Exam Neck Exam: Normal Inspection. absent: Tenderness - Respiratory Exam Respiratory Exam: Rhonchi, Respiratory Distress - Cardiovascular Exam Cardiovascular Exam: Irregular Rhythm, +S1 - GI/Abdominal Exam GI & Abdominal Exam: Soft. absent: Tenderness - Extremities Exam Extremities Exam: Normal Inspection. absent: Tenderness - Neurological Exam Neurological Exam: Alert, CN II-XII Intact - Skin Skin Exam: Dry, Warm Assessment and Plan (1) DEBORAH (acute kidney injury) Status: Acute (2) Bilateral hydronephrosis Status: Acute (3) Degenerative joint disease Status: Acute (4) Elevated PSA, greater than or equal to 20 ng/ml Status: Acute (5) Gross hematuria Status: Acute - Assessment and Plan (Free Text) Plan: Dialysis TTS Other plans as outlined
--- NOTE | 2017-05-12 11:35 | NM ---
PROCEDURE: Whole Body Bone Scan HISTORY: r/o mets COMPARISON: None available. TECHNIQUE: Following administration of 21.9 miCu of Tc MDP multiplanar whole body images were obtained. FINDINGS: Evidence for bony metastatic disease: None. Degenerative uptake: Bilateral knees. Physiologic uptake: Normal physiologic activity in the kidneys. Other findings: None. IMPRESSION: No evidence of bony metastatic disease.
--- NOTE | 2017-05-12 11:52 | PN ---
DATE: 05/12/2017 The patient is awake and alert. He is in the dialysis room having dialysis. PHYSICAL EXAMINATION: VITAL SIGNS: He is now afebrile with blood pressure 150/78, pulse 94, respirations 17 per minute. H emoglobin oxygen saturation of 93%. GENERAL: His dyspnea has improved. He is comfortable, resting. There is no chest pain. HEART: Regular. There is no gallop or rub LUNGS: Diminished breath sounds. Rhonchi decreased. ABDOMEN: Soft. EXTREMITIES: Legs minimal ankle swelling. LABORATORY DATA: His white count 14,100, hemoglobin 8.2, platelets ____. Chest x-ray: No change. Will do a new chest x-ray to see the progress and repeat the white count. IMPRESSION: Respiratory insufficiency, hypertensive cardiovascular disease, chronic obstructive pulm onary disease, pneumonitis, cardiac arrhythmias, cardiomyopathy, chronic renal disease. PLAN: To continue with therapy including vasodilators, bronchodilators and oxygen therapy and dialys is therapy. Follow up with the renal and urology. Gregorio Jones MD cc: [phone] TT: 05/12/2017 11:51:38 Confirmation # [id number] Dictation # [id number] cheo
[2017-05-12 13:10] LABS: BASO % 0.1 % (0.0-2.0); HEMATOCRIT 23.3 % (35.0-51.0); LYMPH # 0.1 K/uL (1.0-4.3); LYMPH % 0.8 % (20.0-40.0); MEAN CELL VOLUME 79.8 fL (80.0-94.0); MEAN CORPUSCULAR HEMOGLOBIN 26.3 pg (27.0-31.0); MEAN CORPUSCULAR HGB CONC 32.9 g/dL (33.0-37.0); MEAN PLATELET VOLUME 8.1 fL (7.2-11.7); MONO # 0.6 K/uL (0.0-0.8); MONO % 5.2 % (0.0-10.0); PLATELET COUNT 125 K/uL (130-400); RED CELL DISTRIBUTION WIDTH 20.1 % (11.5-14.5); WHITE BLOOD COUNT 10.9 K/uL (4.8-10.8)
[2017-05-12] MEDS: cefTRIAXone IV 1 gm in Dextros 50 ML IVPB SCH (13:58)
[2017-05-12] MEDS: Pantoprazole 40 mg EC Tab PO SCH (13:58)
[2017-05-12 14:13] LABS: NEUTROPHIL 94 % (50-75); TOTAL CELLS COUNTED 100
--- NOTE | 2017-05-12 16:17 | PCM.URO ---
Urology Progress Note - Objective Lab Results Last 24 Hours: Laboratory Results - last 24 hr 05/12/17 05/12/17 11:22 13:02 WBC 10.9 H RBC 2.92 L Hgb 7.7 L Hct 23.3 L MCV 79.8 L MCH 26.3 L MCHC 32.9 L RDW 20.1 H Plt Count 125 L MPV 8.1 Neut % (Auto) 93.9 H Lymph % (Auto) 0.8 L [place] % (Auto) 5.2 Eos % (Auto) 0.0 Baso % (Auto) 0.1 Neut # 10.2 H Lymph # 0.1 L [place] # 0.6 Eos # 0.0 Baso # 0.0 Neutrophils % (Manual) 94 H Lymphocytes % (Manual) 2 L Monocytes % (Manual) 4 Platelet Estimate Slightly decreased L Polychromasia Slight Hypochromasia (manual) Slight Anisocytosis (manual) Moderate Ovalocytes Slight [place] Cells Slight Schistocytes Slight POC Glucose (mg/dL) 120 H Intake & Output: Intake & Output 05/11/17 05/12/17 05/12/17 18:59 06:59 18:59 Intake Total 6630 600 Output Total 6500 Balance 130 600 Intake: Intake, IV Amount 50 Right Forearm 50 Oral 580 600 Other 6000 Output: Urine 6500 3-way Urethral 250 Other: # Bowel Movements 0 Vital Signs: Vital Signs - 24 hr 05/11/17 05/12/17 05/12/17 19:30 00:00 08:00 Temperature 98.5 F 97.9 F Pulse Rate 79 81 98 H Pulse Rate [ Left Brachial] Respiratory 20 20 Rate Blood Pressure 131/69 142/68 Blood Pressure [Left Arm] O2 Sat by Pulse 92 L 93 L Oximetry 05/12/17 05/12/17 05/12/17 09:25 09:30 09:45 Temperature 98 F 98 F Pulse Rate 94 H Pulse Rate [ 94 H Left Brachial] Respiratory 17 19 Rate Blood Pressure 151/79 H Blood Pressure 135/80 145/73 [Left Arm] O2 Sat by Pulse 98 Oximetry 05/12/17 05/12/17 05/12/17 10:00 10:15 10:30 Temperature Pulse Rate Pulse Rate [ Left Brachial] Respiratory Rate Blood Pressure Blood Pressure 143/81 143/88 131/79 [Left Arm] O2 Sat by Pulse Oximetry 05/12/17 05/12/17 05/12/17 11:00 11:30 12:00 Temperature Pulse Rate Pulse Rate [ Left Brachial] Respiratory Rate Blood Pressure Blood Pressure 131/88 135/95 H 142/75 [Left Arm] O2 Sat by Pulse Oximetry 05/12/17 05/12/17 05/12/17 12:30 13:05 13:30 Temperature 97.6 F 97.9 F Pulse Rate 104 H Pulse Rate [ 93 H Left Brachial] Respiratory 20 19 Rate Blood Pressure 129/78 Blood Pressure 142/80 129/78 [Left Arm] O2 Sat by Pulse 96 98 Oximetry
[2017-05-12] MEDS: Ferric Sodium Gluconat Complex 62.5 mg/5 ml Vial IVPB SCH (16:46)
--- NOTE | 2017-05-12 23:01 | CP.PCM.PN ---
Subjective - Date & Time of Evaluation Date of Evaluation: 05/12/17 Time of Evaluation: 13:30 - Subjective Subjective: Patient alert and responsive. He is tolerating dialysis and hematuria has diminished. Objective - Vital Signs/Intake and Output Vital Signs (last 24 hours): Temp Pulse Resp BP Pulse Ox 97.4 F L 92 H 20 126/67 96 05/12/17 16:00 05/12/17 16:00 05/12/17 16:00 05/12/17 16:00 05/12/17 16:00 - Medications Medications: Current Medications Albuterol Sulfate (Albuterol 0.083% Inhal Ingris (2.5 Mg/3 Ml) Ud) 2.5 mg INH RQ6 [facility] Last Admin: 05/12/17 19:54 Dose: 2.5 mg Diltiazem HCl (Cardizem) 30 mg PO Q8H [facility] Last Admin: 05/12/17 21:43 Dose: 30 mg Ferric Sodium Gluconate Complex (Ferrlecit) 125 mg IVPB Q24H [facility] Stop: 05/20/17 16:01 Last Admin: 05/12/17 16:46 Dose: 125 mg Ceftriaxone Sodium (Rocephin Iv 1 Gm Duplex) 50 mls @ 100 mls/hr IVPB DAILY [facility] Last Admin: 05/12/17 13:58 Dose: 100 mls/hr Methylprednisolone (Solu-Medrol) 20 mg IV Q12 [facility] Last Admin: 05/12/17 21:43 Dose: 20 mg Metoprolol Succinate (Toprol Xl) 25 mg PO Q12 [facility] Last Admin: 05/12/17 21:43 Dose: 25 mg Pantoprazole Sodium (Protonix Ec Tab) 40 mg PO DAILY [facility] Last Admin: 05/12/17 13:58 Dose: 40 mg Rosuvastatin Calcium (Crestor) 5 mg PO HS [facility] Last Admin: 05/12/17 21:43 Dose: 5 mg Tramadol HCl (Ultram) 50 mg PO Q4 PRN PRN Reason: for pain Last Admin: 05/07/17 19:45 Dose: 50 mg - Labs Labs: 05/12/17 13:02 05/10/17 08:29 PT 12.4 SECONDS (9.7-12.2) H 05/09/17 06:03 INR 1.1 05/09/17 06:03 APTT 27 SECONDS (21-34) 05/09/17 06:03 - Constitutional Appears: No Acute Distress - Head Exam Head Exam: NORMAL INSPECTION - ENT Exam ENT Exam: Normal Exam - Neck Exam Neck Exam: Normal Inspection - Respiratory Exam Respiratory Exam: Decreased Breath Sounds - Cardiovascular Exam Cardiovascular Exam: REGULAR RHYTHM - GI/Abdominal Exam GI & Abdominal Exam: Normal Bowel Sounds - Rectal Exam Rectal Exam: Deferred - Exam Exam: NORMAL INSPECTION - Back Exam Back Exam: NORMAL INSPECTION - Neurological Exam Neurological Exam: Oriented x3 - Psychiatric Exam Psychiatric exam: Normal Mood - Skin Skin Exam: Dry Assessment and Plan (1) Degenerative joint disease Status: Acute (2) ASHD (arteriosclerotic heart disease) Status: Acute (3) Elevated PSA, greater than or equal to 20 ng/ml Status: Acute (4) Gross hematuria Status: Acute (5) Renal insufficiency Status: Acute (6) Urinary retention Status: Acute
[2017-05-13 01:06] LABS: RBC URINE 27 /hpf (0-3); URINE BACTERIA RARE (<OCC); URINE BILIRUBIN NEGATIVE (NEGATIVE); URINE BLOOD 3+ (NEGATIVE); URINE COLOR Yellow (YELLOW); URINE GLUCOSE (UA) NORMAL (Normal); URINE KETONE NEGATIVE (NEGATIVE); URINE LEUKOCYTE ESTERASE 2+ Leu/uL (Negative); URINE PROTEIN 1+ mg/dL (NEGATIVE); URINE UROBILINOGEN NORMAL mg/dL (0.2-1.0); WBC URINE 26 /hpf (0-5)
[2017-05-13] MEDS: Albuterol 0.083% Inhal Sol (2.5 mg/3 mL) UD INH SCH ×4 (02:32→20:37)
--- NOTE | 2017-05-13 07:15 | PCM.URO ---
Urology Progress Note - General General: No Complaints, Tolerating Diet - Subjective Abdominal Pain: No Flank Pain: No Nausea: No Vomiting: No Voiding Well: Yes Hematuria: No (yellow urine) Chest Pain: No Fever & Chills: No Other: on dialysis - Objective Lab Results Last 24 Hours: Laboratory Results - last 24 hr 05/12/17 05/12/17 05/13/17 11:22 13:02 00:52 WBC 10.9 H RBC 2.92 L Hgb 7.7 L Hct 23.3 L MCV 79.8 L MCH 26.3 L MCHC 32.9 L RDW 20.1 H Plt Count 125 L MPV 8.1 Neut % (Auto) 93.9 H Lymph % (Auto) 0.8 L [place] % (Auto) 5.2 Eos % (Auto) 0.0 Baso % (Auto) 0.1 Neut # 10.2 H Lymph # 0.1 L [place] # 0.6 Eos # 0.0 Baso # 0.0 Neutrophils % (Manual) 94 H Lymphocytes % (Manual) 2 L Monocytes % (Manual) 4 Platelet Estimate Slightly decreased L Polychromasia Slight Hypochromasia (manual) Slight Anisocytosis (manual) Moderate Ovalocytes Slight [place] Cells Slight Schistocytes Slight POC Glucose (mg/dL) 120 H Urine Color Yellow Urine Clarity Hazy Urine pH 5.0 Ur Specific [place] 1.010 Urine Protein 1+ H Urine Glucose (UA) Normal Urine Ketones Negative Urine Blood 3+ H Urine Nitrate Negative Urine Bilirubin Negative Urine Urobilinogen Normal Ur Leukocyte Esterase 2+ H Urine WBC (Auto) 26 H Urine RBC (Auto) 27 H Ur Squamous Epith Cells 1 Urine Bacteria Rare Vital Signs: Vital Signs - 24 hr 05/12/17 05/12/17 05/12/17 08:00 09:25 09:30 Temperature 97.9 F 98 F 98 F Pulse Rate 98 H 94 H Pulse Rate [ 94 H Left Brachial] Respiratory 20 17 19 Rate Blood Pressure 142/68 151/79 H Blood Pressure 135/80 [Left Arm] O2 Sat by Pulse 93 L 98 Oximetry 05/12/17 05/12/17 05/12/17 09:45 10:00 10:15 Temperature Pulse Rate Pulse Rate [ Left Brachial] Respiratory Rate Blood Pressure Blood Pressure 145/73 143/81 143/88 [Left Arm] O2 Sat by Pulse Oximetry 05/12/17 05/12/17 05/12/17 10:30 11:00 11:30 Temperature Pulse Rate Pulse Rate [ Left Brachial] Respiratory Rate Blood Pressure Blood Pressure 131/79 131/88 135/95 H [Left Arm] O2 Sat by Pulse Oximetry 05/12/17 05/12/17 05/12/17 12:00 12:30 13:05 Temperature 97.6 F Pulse Rate Pulse Rate [ 93 H Left Brachial] Respiratory 20 Rate Blood Pressure Blood Pressure 142/75 142/80 129/78 [Left Arm] O2 Sat by Pulse 96 Oximetry 05/12/17 05/12/17 05/12/17 13:30 16:00 16:30 Temperature 97.9 F 97.4 F L Pulse Rate 104 H 92 H 76 Pulse Rate [ Left Brachial] Respiratory 19 20 Rate Blood Pressure 129/78 126/67 Blood Pressure [Left Arm] O2 Sat by Pulse 98 96 Oximetry 05/12/17 23:32 Temperature 98.5 F Pulse Rate 95 H Pulse Rate [ Left Brachial] Respiratory 20 Rate Blood Pressure 135/67 Blood Pressure [Left Arm] O2 Sat by Pulse 91 L Oximetry - Physical Exam Abdominal Exam: Soft, Non-Tender, Non-Distended Bowel Sounds: Normal Back: No CVA Tenderness Genitalia: Without Inflammation - Plan Additional Information: imp: bladder ca, poss primary bladder , poss GI origin. P/Rec: gi w/u, oncology consultation. discussed wit primary MD - Date & Time of Note Date: 05/13/17 Time: 07:14
--- NOTE | 2017-05-13 09:28 | CP.PCM.PN ---
Subjective - Date & Time of Evaluation Date of Evaluation: 05/12/17 Time of Evaluation: 13:15 - Subjective Subjective: Patient feels better. He is alert and responsive. Tolerating dialysis. Hgb 7.7. Needs tranfusion . Will consult Dr Lucas. Objective - Vital Signs/Intake and Output Vital Signs (last 24 hours): Temp Pulse Resp BP Pulse Ox 97.8 F 81 20 147/68 96 05/13/17 08:00 05/13/17 08:00 05/13/17 08:00 05/13/17 08:00 05/13/17 08:00 - Medications Medications: Current Medications Albuterol Sulfate (Albuterol 0.083% Inhal Ingris (2.5 Mg/3 Ml) Ud) 2.5 mg INH RQ6 [facility] Last Admin: 05/13/17 08:06 Dose: 2.5 mg Diltiazem HCl (Cardizem) 30 mg PO Q8H [facility] Last Admin: 05/13/17 06:24 Dose: 30 mg Ferric Sodium Gluconate Complex (Ferrlecit) 125 mg IVPB Q24H [facility] Stop: 05/20/17 16:01 Last Admin: 05/12/17 16:46 Dose: 125 mg Ceftriaxone Sodium (Rocephin Iv 1 Gm Duplex) 50 mls @ 100 mls/hr IVPB DAILY [facility] Last Admin: 05/12/17 13:58 Dose: 100 mls/hr Methylprednisolone (Solu-Medrol) 20 mg IV Q12 [facility] Last Admin: 05/12/17 21:43 Dose: 20 mg Metoprolol Succinate (Toprol Xl) 25 mg PO Q12 [facility] Last Admin: 05/12/17 21:43 Dose: 25 mg Pantoprazole Sodium (Protonix Ec Tab) 40 mg PO DAILY [facility] Last Admin: 05/12/17 13:58 Dose: 40 mg Rosuvastatin Calcium (Crestor) 5 mg PO HS [facility] Last Admin: 05/12/17 21:43 Dose: 5 mg Tramadol HCl (Ultram) 50 mg PO Q4 PRN PRN Reason: for pain Last Admin: 05/07/17 19:45 Dose: 50 mg - Labs Labs: 05/12/17 13:02 05/10/17 08:29 PT 12.4 SECONDS (9.7-12.2) H 05/09/17 06:03 INR 1.1 05/09/17 06:03 APTT 27 SECONDS (21-34) 05/09/17 06:03 - Constitutional Appears: In Acute Distress - Head Exam Head Exam: NORMAL INSPECTION - Eye Exam Eye Exam: Normal appearance Pupil Exam: NORMAL ACCOMODATION - ENT Exam ENT Exam: Normal External Ear Exam - Neck Exam Neck Exam: Normal Inspection - Respiratory Exam Respiratory Exam: Decreased Breath Sounds - Cardiovascular Exam Cardiovascular Exam: REGULAR RHYTHM - GI/Abdominal Exam GI & Abdominal Exam: Normal Bowel Sounds - Rectal Exam Rectal Exam: Deferred - Exam Exam: NORMAL INSPECTION - Extremities Exam Extremities Exam: Tenderness - Back Exam Back Exam: NORMAL INSPECTION - Neurological Exam Neurological Exam: Oriented x3 - Psychiatric Exam Psychiatric exam: Normal Mood - Skin Skin Exam: Dry Assessment and Plan (1) Degenerative joint disease Status: Acute (2) ASHD (arteriosclerotic heart disease) Status: Acute (3) Elevated PSA, greater than or equal to 20 ng/ml Status: Acute (4) Gross hematuria Status: Acute (5) Renal insufficiency Status: Acute (6) Urinary retention Status: Acute
[2017-05-13] MEDS: cefTRIAXone IV 1 gm in Dextros 50 ML IVPB SCH (10:12)
[2017-05-13] MEDS: Pantoprazole 40 mg EC Tab PO SCH (10:12)
[2017-05-13] MEDS: MethylPREDNISolone 40 mg Vial IV SCH ×2 (10:13→21:25)
[2017-05-13] MEDS: Metoprolol Succinate 25 mg XL Tab PO SCH ×2 (10:13→21:26)
[2017-05-13 11:54] LABS: BASO % 0.1 % (0.0-2.0); HEMATOCRIT 23.3 % (35.0-51.0); LYMPH # 0.1 K/uL (1.0-4.3); MEAN CELL VOLUME 81.6 fL (80.0-94.0); MEAN CORPUSCULAR HEMOGLOBIN 25.9 pg (27.0-31.0); MEAN CORPUSCULAR HGB CONC 31.8 g/dL (33.0-37.0); MEAN PLATELET VOLUME 8.2 fL (7.2-11.7); MONO # 0.7 K/uL (0.0-0.8); MONO % 5.3 % (0.0-10.0); NRBC % 0.1 % (0.0-2.0); PLATELET COUNT 145 K/uL (130-400); RED CELL DISTRIBUTION WIDTH 20.1 % (11.5-14.5); WHITE BLOOD COUNT 13.1 K/uL (4.8-10.8)
[2017-05-13 12:08] LABS: POTASSIUM 3.8 mmol/L (3.6-5.2)
[2017-05-13 12:10] LABS: BILIRUBIN,TOTAL 0.5 mg/dL (0.2-1.3)
[2017-05-13 12:11] LABS: ALB/GLOB RATIO 0.8 (1.0-2.1); CALCIUM 8.6 mg/dl (8.6-10.4); TOTAL PROTEIN 6.1 g/dL (6.3-8.3)
[2017-05-13 13:00] LABS: EOSINOPHIL 1 % (0-4); NEUTROPHIL 94 % (50-75); TOTAL CELLS COUNTED 100
--- NOTE | 2017-05-13 14:26 | CP.PCM.PN ---
Subjective - Date & Time of Evaluation Date of Evaluation: 05/13/17 Time of Evaluation: 14:22 - Subjective Subjective: Alert; no observed hematuria Hg dropped to 7.4- will arrange for blood transfusions in AM with HD Will need outpt dialysis arrangements Feels better otherwise Objective - Vital Signs/Intake and Output Vital Signs (last 24 hours): Temp Pulse Resp BP Pulse Ox 97.8 F 81 20 147/68 96 05/13/17 08:00 05/13/17 08:00 05/13/17 08:00 05/13/17 08:00 05/13/17 08:00 - Medications Medications: Current Medications Albuterol Sulfate (Albuterol 0.083% Inhal Ingris (2.5 Mg/3 Ml) Ud) 2.5 mg INH RQ6 [facility] Last Admin: 05/13/17 08:06 Dose: 2.5 mg Diltiazem HCl (Cardizem) 30 mg PO Q8H [facility] Last Admin: 05/13/17 13:44 Dose: 30 mg Ferric Sodium Gluconate Complex (Ferrlecit) 125 mg IVPB Q24H [facility] Stop: 05/20/17 16:01 Last Admin: 05/12/17 16:46 Dose: 125 mg Ceftriaxone Sodium (Rocephin Iv 1 Gm Duplex) 50 mls @ 100 mls/hr IVPB DAILY [facility] Last Admin: 05/13/17 10:12 Dose: 100 mls/hr Methylprednisolone (Solu-Medrol) 20 mg IV Q12 [facility] Last Admin: 05/13/17 10:13 Dose: 20 mg Metoprolol Succinate (Toprol Xl) 25 mg PO Q12 [facility] Last Admin: 05/13/17 10:13 Dose: 25 mg Pantoprazole Sodium (Protonix Ec Tab) 40 mg PO DAILY [facility] Last Admin: 05/13/17 10:12 Dose: 40 mg Rosuvastatin Calcium (Crestor) 5 mg PO HS [facility] Last Admin: 05/12/17 21:43 Dose: 5 mg Tramadol HCl (Ultram) 50 mg PO Q4 PRN PRN Reason: for pain Last Admin: 05/07/17 19:45 Dose: 50 mg - Labs Labs: 05/13/17 11:41 05/13/17 11:41 PT 12.4 SECONDS (9.7-12.2) H 05/09/17 06:03 INR 1.1 05/09/17 06:03 APTT 27 SECONDS (21-34) 05/09/17 06:03 - Constitutional Appears: No Acute Distress, Chronically Ill - Head Exam Head Exam: NORMAL INSPECTION - Eye Exam Eye Exam: EOMI, Normal appearance - Neck Exam Neck Exam: Normal Inspection. absent: Tenderness - Respiratory Exam Respiratory Exam: Clear to Ausculation Bilateral, NORMAL BREATHING PATTERN - Cardiovascular Exam Cardiovascular Exam: Irregular Rhythm, +S1 - GI/Abdominal Exam GI & Abdominal Exam: Soft. absent: Tenderness - Extremities Exam Extremities Exam: Normal Inspection. absent: Pedal Edema, Tenderness - Neurological Exam Neurological Exam: Alert, CN II-XII Intact - Skin Skin Exam: Dry, Warm Assessment and Plan (1) DEBORAH (acute kidney injury) Status: Acute (2) Bilateral hydronephrosis Status: Acute (3) Degenerative joint disease Status: Acute (4) Elevated PSA, greater than or equal to 20 ng/ml Status: Acute (5) Gross hematuria Status: Acute - Assessment and Plan (Free Text) Plan: Dialysis in AM Transfuse 2 units prbcs with HD follow up for bladder CA IV Fe Will make outpt dialysis arrangements
--- NOTE | 2017-05-13 16:11 | RAD ---
HISTORY: chf COMPARISON: 05/12/2017 TECHNIQUE: Chest PA and lateral FINDINGS: LUNGS: There is mild pulmonary venous congestion with interval significant improved aeration in both lungs. There is no focal consolidation. PLEURA: No significant pleural effusion identified. No pneumothorax apparent. CARDIOVASCULAR: The heart is normal in size. Atherosclerotic aortic arch calcifications are present. . OSSEOUS STRUCTURES: No significant abnormalities. VISUALIZED UPPER ABDOMEN: Normal. OTHER FINDINGS: None. IMPRESSION: Mild pulmonary venous congestion. Interval significant improvement since the prior examination.
[2017-05-13] MEDS: Ferric Sodium Gluconat Complex 62.5 mg/5 ml Vial IVPB SCH (16:14)
[2017-05-14] MEDS: Albuterol 0.083% Inhal Sol (2.5 mg/3 mL) UD INH SCH ×4 (01:30→19:00)
--- NOTE | 2017-05-14 09:59 | CP.PCM.PN ---
Subjective - Date & Time of Evaluation Date of Evaluation: 05/14/17 Time of Evaluation: 09:00 - Subjective Subjective: for HD today for blood transfusion on HD using femoral permcath still very swollen no chest pain no sob no headache no rash no nausea no sinus tenderness no increased thirst Objective - Vital Signs/Intake and Output Vital Signs (last 24 hours): Temp Pulse Resp BP Pulse Ox 98 F 87 20 138/72 98 05/14/17 00:00 05/14/17 00:00 05/14/17 00:00 05/14/17 00:00 05/14/17 00:00 Intake and Output: 05/14/17 05/14/17 06:59 18:59 Intake Total 860 Output Total 800 Balance 60 - Medications Medications: Current Medications Albuterol Sulfate (Albuterol 0.083% Inhal Ingris (2.5 Mg/3 Ml) Ud) 2.5 mg INH RQ6 [facility] Last Admin: 05/14/17 08:40 Dose: 2.5 mg Diltiazem HCl (Cardizem) 30 mg PO Q8H [facility] Last Admin: 05/14/17 06:42 Dose: 30 mg Ferric Sodium Gluconate Complex (Ferrlecit) 125 mg IVPB Q24H [facility] Stop: 05/20/17 16:01 Last Admin: 05/13/17 16:14 Dose: 125 mg Ceftriaxone Sodium (Rocephin Iv 1 Gm Duplex) 50 mls @ 100 mls/hr IVPB DAILY [facility] Last Admin: 05/13/17 10:12 Dose: 100 mls/hr Methylprednisolone (Solu-Medrol) 20 mg IV Q12 [facility] Last Admin: 05/13/17 21:25 Dose: 20 mg Metoprolol Succinate (Toprol Xl) 25 mg PO Q12 [facility] Last Admin: 05/13/17 21:26 Dose: 25 mg Pantoprazole Sodium (Protonix Ec Tab) 40 mg PO DAILY [facility] Last Admin: 05/13/17 10:12 Dose: 40 mg Rosuvastatin Calcium (Crestor) 5 mg PO HS [facility] Last Admin: 05/13/17 21:26 Dose: 5 mg Tramadol HCl (Ultram) 50 mg PO Q4 PRN PRN Reason: for pain Last Admin: 05/07/17 19:45 Dose: 50 mg - Labs Labs: 05/13/17 11:41 05/13/17 11:41 PT 12.4 SECONDS (9.7-12.2) H 05/09/17 06:03 INR 1.1 05/09/17 06:03 APTT 27 SECONDS (21-34) 05/09/17 06:03 - Constitutional Appears: Chronically Ill - Eye Exam Eye Exam: EOMI - ENT Exam ENT Exam: Mucous Membranes Moist - Neck Exam Neck Exam: Full ROM. absent: Lymphadenopathy - Respiratory Exam Respiratory Exam: Decreased Breath Sounds. absent: Accessory Muscle Use - GI/Abdominal Exam GI & Abdominal Exam: Distended, Soft - Exam Additional comments: enciso - Extremities Exam Extremities Exam: Pedal Edema Assessment and Plan - Assessment and Plan (Free Text) Assessment: bladder cancer new HD fluid overload continue UF on HD Send to [facility] needs tasia and permcath before discharge
[2017-05-14] MEDS: MethylPREDNISolone 40 mg Vial IV SCH (11:09)
[2017-05-14] MEDS: Metoprolol Succinate 25 mg XL Tab PO SCH (11:10)
[2017-05-14 12:10] VITALS: TEMP 98.2
[2017-05-14] MEDS: Ferric Sodium Gluconat Complex 62.5 mg/5 ml Vial IVPB SCH (12:39)
--- NOTE | 2017-05-14 13:11 | CP.PCM.PN ---
Subjective - Date & Time of Evaluation Date of Evaluation: 05/14/17 Time of Evaluation: 15:00 - Subjective Subjective: +Pt seen today after HD , denies any sob, chest pain, abdominal pain 2 unit of PRBC recived during HD no overnight events reported by RN seen by Dr. Mathew today, D/W ,ok fo rdischarge if pt had a slot ready HD at [facility] Objective - Vital Signs/Intake and Output Vital Signs (last 24 hours): Temp Pulse Resp BP Pulse Ox 98.2 F 88 16 144/87 100 05/14/17 12:05 05/14/17 12:05 05/14/17 12:05 05/14/17 12:05 05/14/17 12:00 Intake and Output: 05/14/17 05/14/17 06:59 18:59 Intake Total 860 277 Output Total 800 Balance 60 277 - Medications Medications: Current Medications Albuterol Sulfate (Albuterol 0.083% Inhal Ingris (2.5 Mg/3 Ml) Ud) 2.5 mg INH RQ6 [facility] Last Admin: 05/14/17 08:40 Dose: 2.5 mg Diltiazem HCl (Cardizem) 30 mg PO Q8H [facility] Last Admin: 05/14/17 06:42 Dose: 30 mg Ferric Sodium Gluconate Complex (Ferrlecit) 125 mg IVPB Q24H [facility] Stop: 05/20/17 16:01 Last Admin: 05/14/17 12:39 Dose: 125 mg Ceftriaxone Sodium (Rocephin Iv 1 Gm Duplex) 50 mls @ 100 mls/hr IVPB DAILY [facility] Last Admin: 05/13/17 10:12 Dose: 100 mls/hr Methylprednisolone (Solu-Medrol) 20 mg IV Q12 [facility] Last Admin: 05/14/17 11:09 Dose: Not Given Metoprolol Succinate (Toprol Xl) 25 mg PO Q12 [facility] Last Admin: 05/14/17 11:10 Dose: Not Given Pantoprazole Sodium (Protonix Ec Tab) 40 mg PO DAILY [facility] Last Admin: 05/13/17 10:12 Dose: 40 mg Rosuvastatin Calcium (Crestor) 5 mg PO HS [facility] Last Admin: 05/13/17 21:26 Dose: 5 mg Tramadol HCl (Ultram) 50 mg PO Q4 PRN PRN Reason: for pain Last Admin: 05/07/17 19:45 Dose: 50 mg - Labs Labs: 05/13/17 11:41 05/13/17 11:41 PT 12.4 SECONDS (9.7-12.2) H 05/09/17 06:03 INR 1.1 05/09/17 06:03 APTT 27 SECONDS (21-34) 05/09/17 06:03 Assessment and Plan - Assessment and Plan (Free Text) Plan: D/w with Dr. Jason, stable for dishcarge to [facility] today nad Dr. Jason will follo [facility]int [facility] as per KRISTEN pt has a slot at [facility] s/p HD today and s/p 2 unot of prbc with HD
[2017-05-14] MEDS: Pantoprazole 40 mg EC Tab PO SCH (13:44)
[2017-05-14] MEDS: cefTRIAXone IV 1 gm in Dextros 50 ML IVPB SCH (13:44)
[2017-05-14 15:12] VITALS: BP 154/86; PULSE 116; RESP 20; O2SAT 98
--- NOTE | 2017-05-14 16:54 | PN ---
DATE: 05/14/2017 The patient is alert, oriented, afebrile with blood pressure 154/86, pulse 100, respiration 20, hemog lobin oxygen saturation is 98%. His dyspnea has decreased. There is no chest pain, he feels comfort able. PHYSICAL EXAMINATION: HEART: Regular. There is no gallop rhythm. LUNGS: Diminished breath sounds over lung bases. Rhonchi improved and is almost resolved. ABDOMEN: Soft. EXTREMITIES: No edema. LABORATORY DATA: His white count 13,100, hemoglobin 7.4, platelet count 145,000. IMPRESSION: Respiratory insufficiency, chronic obstructive pulmonary disease exacerbation, chronic b ronchitis, hypertensive cardiovascular disease, cardiac arrhythmias, congestive heart failure and chr onic renal failure. The patient on dialysis regimen. PLAN: To continue with the current medications including bronchodilators, vasodilators and follow up with renal. Gregorio Jones MD cc: [phone] TT: 05/14/2017 16:53:24 Confirmation # [id number] Dictation # [id number]
--- NOTE | 2017-05-14 22:24 | CP.PCM.DIS ---
Provider - Provider Date of Admission: 05/04/17 18:30 Attending physician: Nestor Jason MD Time Spent in preparation of Discharge (in minutes): 26 Diagnosis - Discharge Diagnosis (1) Degenerative joint disease Status: Acute (2) ASHD (arteriosclerotic heart disease) Status: Acute (3) Elevated PSA, greater than or equal to 20 ng/ml Status: Acute (4) Gross hematuria Status: Acute (5) Renal insufficiency Status: Acute (6) Urinary retention Status: Acute (7) Prostate cancer Status: Acute Hospital Course - Lab Results Lab Results: Micro Results 05/10/17 17:55 Blood Blood Culture - Preliminary NO GROWTH AFTER 4 DAYS 05/10/17 17:55 Blood Blood Culture - Preliminary NO GROWTH AFTER 4 DAYS Most Recent Lab Values WBC 13.1 K/uL (4.8-10.8) H 05/13/17 11:41 RBC 2.86 Mil/uL (4.40-5.90) L 05/13/17 11:41 Hgb 7.4 g/dL (12.0-18.0) L 05/13/17 11:41 Hct 23.3 % (35.0-51.0) L 05/13/17 11:41 MCV 81.6 fL (80.0-94.0) 05/13/17 11:41 MCH 25.9 pg (27.0-31.0) L 05/13/17 11:41 MCHC 31.8 g/dL (33.0-37.0) L 05/13/17 11:41 RDW 20.1 % (11.5-14.5) H 05/13/17 11:41 Plt Count 145 K/uL (130-400) 05/13/17 11:41 MPV 8.2 fL (7.2-11.7) 05/13/17 11:41 Neut % (Auto) 93.6 % (50.0-75.0) H 05/13/17 11:41 Lymph % (Auto) 1.0 % (20.0-40.0) L 05/13/17 11:41 Ashley % (Auto) 5.3 % (0.0-10.0) 05/13/17 11:41 Eos % (Auto) 0.0 % (0.0-4.0) 05/13/17 11:41 Baso % (Auto) 0.1 % (0.0-2.0) 05/13/17 11:41 Neut # 12.3 K/uL (1.8-7.0) H 05/13/17 11:41 Lymph # 0.1 K/uL (1.0-4.3) L 05/13/17 11:41 Ashley # 0.7 K/uL (0.0-0.8) 05/13/17 11:41 Eos # 0.0 K/uL (0.0-0.7) 05/13/17 11:41 Baso # 0.0 K/uL (0.0-0.2) 05/13/17 11:41 Neutrophils % (Manual) 94 % (50-75) H 05/13/17 11:41 Band Neutrophils % 3 % (0-2) H 05/10/17 08:29 Lymphocytes % (Manual) 1 % (20-40) L 05/13/17 11:41 Monocytes % (Manual) 4 % (0-10) 05/13/17 11:41 Eosinophils % (Manual) 1 % (0-4) 05/13/17 11:41 Platelet Estimate Normal (NORMAL) 05/13/17 11:41 Polychromasia Slight 05/12/17 13:02 Hypochromasia (manual) Moderate 05/13/17 11:41 Poikilocytosis (manual Slight 05/13/17 11:41 Basophilic Stippling Slight 05/05/17 11:44 Anisocytosis (manual) Moderate 05/13/17 11:41 Target Cells Slight 05/10/17 08:29 Ovalocytes Slight 05/13/17 11:41 [place] Cells Slight 05/12/17 13:02 Schistocytes Slight 05/12/17 13:02 PT 12.4 SECONDS (9.7-12.2) H 05/09/17 06:03 INR 1.1 05/09/17 06:03 APTT 27 SECONDS (21-34) 05/09/17 06:03 Puncture Site Rrad 05/11/17 13:50 pCO2 35 mm/Hg (35-45) 05/11/17 13:50 pO2 62 mm/Hg (80-100) L 05/11/17 13:50 HCO3 25.8 mmol/L (21-28) 05/11/17 13:50 ABG pH 7.46 (7.35-7.45) H 05/11/17 13:50 ABG Total CO2 26.0 mmol/L (22-28) 05/11/17 13:50 ABG O2 Saturation 97.0 % (95-98) 05/11/17 13:50 ABG Base Excess 1.1 mmol/L (-2.0-3.0) 05/11/17 13:50 ABG Hemoglobin 8.3 g/dL (11.7-17.4) L 05/11/17 13:50 ABG Carboxyhemoglobin 1.9 % (0.5-1.5) H 05/11/17 13:50 POC ABG HHb (Measured) 2.9 % (0.0-5.0) 05/11/17 13:50 ABG Methemoglobin 1.0 % (0.0-3.0) 05/11/17 13:50 Arturo Test Pos 05/11/17 13:50 Hgb O2 Saturation 94.2 % (95.0-98.0) L 05/11/17 13:50 Liter Flow 2.0 05/11/17 13:50 Sodium 138 mmol/L (132-148) 05/13/17 11:41 Potassium 3.8 mmol/L (3.6-5.2) 05/13/17 11:41 Chloride 99 mmol/L (98-107) 05/13/17 11:41 Carbon Dioxide 27 mmol/L (22-30) 05/13/17 11:41 Anion Gap 16 (10-20) 05/13/17 11:41 BUN 61 mg/dL (9-20) H 05/13/17 11:41 Creatinine 4.2 MG/DL (0.8-1.5) H 05/13/17 11:41 Est GFR ( Amer) 16 05/13/17 11:41 Est GFR (Non-Af Amer) 14 05/13/17 11:41 POC Glucose (mg/dL) 144 mg/dL (65-110) H 05/14/17 11:01 Random Glucose 212 mg/dL (75-110) H 05/13/17 11:41 Calcium 8.6 mg/dl (8.6-10.4) 05/13/17 11:41 Phosphorus 4.6 mg/dL (2.5-4.5) H 05/06/17 06:06 Magnesium 2.4 mg/dL (1.6-2.3) H 05/06/17 06:06 % Saturation 9 (20-55) L 05/11/17 06:41 Ferritin 116.0 ng/mL 05/11/17 06:41 Total Bilirubin 0.5 mg/dL (0.2-1.3) 05/13/17 11:41 AST 27 U/L (17-59) 05/13/17 11:41 ALT 20 U/L (21-72) L 05/13/17 11:41 Alkaline Phosphatase 81 U/L (38-126) 05/13/17 11:41 Total Protein 6.1 g/dL (6.3-8.3) L 05/13/17 11:41 Albumin 2.8 g/dL (3.5-5.0) L 05/13/17 11:41 Globulin 3.3 gm/dL (2.2-3.9) 05/13/17 11:41 Albumin/Globulin Ratio 0.8 (1.0-2.1) L 05/13/17 11:41 Prostate Specific Ag 33.1 ng/mL (0.00-4.0) H 05/05/17 07:30 Urine Color Yellow (YELLOW) 05/13/17 00:52 Urine Clarity Hazy (Clear) 05/13/17 00:52 Urine pH 5.0 (5.0-8.0) 05/13/17 00:52 Ur Specific [place] 1.010 (1.003-1.030) 05/13/17 00:52 Urine Protein 1+ mg/dL (NEGATIVE) H 05/13/17 00:52 Urine Glucose (UA) Normal mg/dL (Normal) 05/13/17 00:52 Urine Ketones Negative mg/dL (NEGATIVE) 05/13/17 00:52 Urine Blood 3+ (NEGATIVE) H 05/13/17 00:52 Urine Nitrate Negative (NEGATIVE) 05/13/17 00:52 Urine Bilirubin Negative (NEGATIVE) 05/13/17 00:52 Urine Urobilinogen Normal mg/dL (0.2-1.0) 05/13/17 00:52 Ur Leukocyte Esterase 2+ Dontae/uL (Negative) H 05/13/17 00:52 Urine WBC (Auto) 26 /hpf (0-5) H 05/13/17 00:52 Urine RBC (Auto) 27 /hpf (0-3) H 05/13/17 00:52 Ur Squamous Epith Cells 1 /hpf (0-5) 05/13/17 00:52 Urine Bacteria Rare (<OCC) 05/13/17 00:52 U Random Total Protein 81.0 mg/dL (0.0-12.0) H 05/13/17 09:58 Ur Random Sodium < 5.0 mmol/L 05/09/17 14:22 Hep Bs Antigen Negative (NEGATIVE) 05/09/17 19:03 Hep Bs Antibody Negative (NEGATIVE) 05/09/17 19:03 Hep B Core IgM Ab Negative (NEGATIVE) 05/09/17 19:03 Hepatitis C Antibody Negative (NEGATIVE) 05/09/17 19:03 Blood Type B POSITIVE 05/13/17 17:52 Blood Type Confirm B POSITIVE 05/04/17 20:26 Antibody Screen Negative 05/13/17 17:52 Discharge Exam - Head Exam Head Exam: NORMAL INSPECTION Discharge Plan - Discharge Medications Prescriptions: Docusate [Colace] 100 mg PO DAILY #39 cap Ferrous Sulfate [Feosol] 325 mg PO BID #60 tab predniSONE [predniSONE Tab] 10 mg PO DAILY #10 tab - Follow Up Plan Condition: FAIR Disposition: HOME/ ROUTINE Instructions: Constipation (GEN), Urinary Retention in Men (GEN), Cystoscopy ( GEN), Hemodialysis (DC), Hemodialysis (GEN), Dialysis Diet (DC), Dialysis Diet ( GEN), Acute Hematuria (DC), Acute Hematuria (GEN), Dysuria (GEN) Additional Instructions: Please admit patient under Dr. Jason service. Call Dr. Jason upon patient arrival to the facility. Continue medication as per Med. Rec. Please repeat CBC tuesday. Continue HD [place] as scheduled for hemodialysis. Please follow up with Dr. Ross office upon discharge from [facility] . Referrals: Twin Lucas MD [Staff Provider] - Celso Ross MD [Staff Provider] - Nestor Jason MD [Staff Provider] -
--- NOTE | 2017-05-16 09:29 | PN ---
DATE: 05/13/2017 GENERAL: This patient is alert, oriented. VITAL SIGNS: She is afebrile, blood pressure 126/68, pulse 81, respiration 20, hemoglobin oxygen sat uration of 96%. His dyspnea has improved. His cough is easier and feels a little stronger. There i s no chest pain. HEART: Regular. There is no gallop. LUNGS: Diminished breath sounds over lung bases. Rhonchi decreased. ABDOMEN: Soft. EXTREMITIES: Legs edema subsided. LABORATORY DATA: His white count is 13, 7.4, platelet count is 125. IMPRESSION: Respiratory insufficiency, chronic obstructive pulmonary disease, , hypertensive ca rdiovascular disease, cardiac arrhythmias and congestive heart failure. PLAN: To continue with the current regimen. Gregorio Jones MD cc: [phone] TT: 05/13/2017 12:32:56 Confirmation # [id number] Dictation # [id number] jn
== END 2017-05-14 19:25 | disposition home or self-care (01) | DRG 668 ==
LOC: C.ER 16:17 → C.9E 18:30 → C.3T 20:55 → C.5T 05-09 18:47
PROVIDERS: ADMIT Internal Medicine; ATTEND Internal Medicine
PROC: 0TCC8ZZ Extirpation of Matter from Bladder Neck, Via Natural or Artificial Opening Endoscopic (ICD-10-PCS; 2017-05-08)
PROC: 0TBB8ZZ Excision of Bladder, Via Natural or Artificial Opening Endoscopic (ICD-10-PCS; principal; 2017-05-08 08:30)
PROC: 0TBC8ZZ Excision of Bladder Neck, Via Natural or Artificial Opening Endoscopic (ICD-10-PCS; 2017-05-08 08:30)
PROC: 5A1D60Z (ICD-10-PCS; 2017-05-09)
PROC: 02HV33Z Insertion of Infusion Device into Superior Vena Cava, Percutaneous Approach (ICD-10-PCS; 2017-05-09)
PROC: B548ZZA Ultrasonography of Superior Vena Cava, Guidance (ICD-10-PCS; 2017-05-09)
DX: C67.5 Malignant neoplasm of bladder neck (principal); N18.6 End stage renal disease; N17.9 Acute kidney failure, unspecified; J44.0 Chronic obstructive pulmonary disease with (acute) lower respiratory infection; I13.2 Hypertensive heart and chronic kidney disease with heart failure and with stage 5 chronic kidney disease, or end stage renal disease; I42.9 Cardiomyopathy, unspecified; I50.9 Heart failure, unspecified; N13.30 Unspecified hydronephrosis; R31.0 Gross hematuria; I48.2 Chronic atrial fibrillation; D64.9 Anemia, unspecified; Z68.21 Body mass index [BMI] 21.0-21.9, adult; E78.00 Pure hypercholesterolemia, unspecified; K21.9 Gastro-esophageal reflux disease without esophagitis; N40.0 Benign prostatic hyperplasia without lower urinary tract symptoms; Z99.2 Dependence on renal dialysis

== ENCOUNTER 2017-06-29 07:56 | Day surgery (SDC) | payer MEDICARE, OTHER ==
[2017-06-29 08:32] VITALS: BMI 23.4
[2017-06-29] MEDS ORDERED: Absorbable Gelatin Sponge Size 12-7 ONE (10:29)
--- NOTE | 2017-06-29 10:45 | CP.SDSHP ---
Same Day Surgery H & P - History Proposed Procedure: LIver mass biopsy Pre-Op Diagnosis: Hepatic lesions. - Allergies Allergies: Allergies No Known Allergies Allergy (Verified 05/04/17 16:20) - Physical Exam Vital Signs: Vital Signs 06/29/17 08:32 Temperature 97.9 F Pulse Rate 88 Respiratory 20 Rate Blood Pressure 159/77 H O2 Sat by Pulse 99 Oximetry Short Stay Discharge - Short Stay Discharge Admitting Diagnosis/Reason for Visit: LIVER LESIONS Disposition: HOME/ ROUTINE
--- NOTE | 2017-06-29 10:46 | PCM.SURG1 ---
Surgeon's Initial Post Op Note - Surgeon's Notes Surgeon: Alexei Welder Gas Automatic: None Type of Anesthesia: IV Sedation, Local Pre-Operative Diagnosis: Hepatic lesions. Operative Findings: Hepatic lesions. Post-Operative Diagnosis: Hepatic lesions. Operation Performed: Left Hepatic lesion 18G core biopsy x3. Specimen/Specimens Removed: Core biopsy of left Hepatic lesion. Estimated Blood Loss: EBL {In ML}: 1 Date of Surgery/Procedure: 06/29/17 Time of Surgery/Procedure: 10:45
[2017-06-29 11:22] VITALS: RESP 18; TEMP 97
[2017-06-29 11:46] VITALS: PULSE 87
[2017-06-29 14:02] VITALS: BP 132/70; O2SAT 99
--- NOTE | 2017-07-01 11:34 | US ---
Ultrasound-guided liver mass biopsy History: 81-year-old male with left hepatic lobe mass. Comparison: Comparison is made to a recent CT from 05/07/2017. Anesthesia: Moderate sedation provided by attending anesthesiologist Procedure and findings: The procedure was explained to the patient in detail. The patient understood the relative risks and benefits and provided written informed consent. The patient was positioned supine. Continuous physiologic monitoring was provided by the attending anesthesiologist and the interventional radiology nurse. Initial ultrasonography of the liver was performed. The left hepatic lobe demonstrated a large heterogeneous appearing mass. The epigastric region of the abdomen was prepped and draped in the usual sterile technique. Under real-time ultrasonography guidance, an 18 gauge coaxial needle was introduced into the left lobe of the liver extending up to the mass. Upon confirmation of optimal needle placement with real-time ultrasonogram, images were stored. Subsequently, 3 core biopsy samples of the mass were obtained using an 18 gauge spring loaded biopsy system. Images were stored. The biopsy samples were sent to the department of pathology for analysis. Approximately 3 cc of Gel-Foam slurry was utilized to embolize the tract. No postprocedure hematoma was identified. The patient tolerated the procedure well without any serious adverse events. The patient was transferred to the recovery room in stable condition. Postprocedure orders were given. Impression: Successful ultrasound-guided biopsy of left hepatic lobe mass.
== END 2017-06-29 17:18 ==
LOC: C.SPRAD 07:56
PROVIDERS: ATTEND Radiology Vascular & Interventional Radiology
DX: C22.7 Other specified carcinomas of liver (principal)
CPT/HCPCS: 47000; 88307; J3010

== ENCOUNTER 2017-11-10 17:40 | Emergency (ER) | payer MEDICARE ==
[2017-11-10 17:40] VITALS: BMI 23.4
--- NOTE | 2017-11-10 18:09 | C.PDOC ---
History Of Present Illness 82 year old male with Hx of Afib is sent to the ED from a dialysis center for evaluation of tachycardia. As per EMS patient was tachycardic before starting dialysis, his PMD was called and advised to finished dialysis if he still was tachycardic to sent him to the ED for evaluation. Patient currently states he is no pain. Time Seen by Provider: 11/10/17 18:02 Chief Complaint (Nursing): Palpitations History Per: Patient, EMS History/Exam Limitations: no limitations Onset/Duration Of Symptoms: Hrs Current Symptoms Are (Timing): Gone Quality: "Pain" Modifying Factors: None Exacerbating Factors: None Alleviating Factors: None Recent travel outside of the [place]: No Additional History Per: Patient, EMS Past Medical History Reviewed: Historical Data, Nursing Documentation, Vital Signs Vital Signs: Last Vital Signs Temp 98.9 F 11/10/17 17:54 Pulse 111 H 11/10/17 20:17 Resp 20 11/10/17 20:17 BP 141/72 11/10/17 20:17 Pulse Ox 100 11/10/17 20:17 - Medical History PMH: Arthritis (BOTH KNEES), Asthma, Atrial Fibrillation, Cardia Arrhythmia (A- FIB), HTN, Hypercholesterolemia, Osteoporosis, Chronic Kidney Disease Surgical History: No Surg Hx - [facility] Procedures EXCISION OF BLADDER NECK, ENDO (05/04/17) EXCISION OF BLADDER, ENDO (05/04/17) EXTIRPATION OF MATTER FROM BLADDER NECK, ENDO (05/04/17) ING HERNIA REP-GRAFT NOS (05/08/14) INSERTION OF INFUSION DEV INTO SUP VENA CAVA, PERC APPROACH (05/04/17) PERFORMANCE OF URINARY FILTRATION, MULTIPLE (05/04/17) ULTRASONOGRAPHY OF SUPERIOR VENA CAVA, GUIDANCE (05/04/17) Family History: States: Unknown Family Hx - Social History Hx Tobacco Use: No Hx Alcohol Use: No Hx Substance Use: No - Immunization History Hx Tetanus Toxoid Vaccination: Yes Hx Influenza Vaccination: Yes Hx Pneumococcal Vaccination: Yes Review Of Systems Constitutional: Negative for: Fever, Chills Cardiovascular: Positive for: Palpitations. Negative for: Chest Pain Respiratory: Negative for: Cough, Shortness of Breath Gastrointestinal: Negative for: Nausea, Vomiting, Abdominal Pain Musculoskeletal: Negative for: Back Pain Skin: Negative for: Rash Neurological: Negative for: Weakness, Numbness Physical Exam - Physical Exam Appears: Non-toxic, No Acute Distress Skin: Normal Color, Warm, Dry Head: Atraumatic, Normacephalic Nose: No Discharge Oral Mucosa: Moist Neck: Normal ROM, Supple Chest: Symmetrical Cardiovascular: Other (Irregularly Irregular rhythm with an S2 click) Respiratory: Normal Breath Sounds, No Rales, No Rhonchi, No Wheezing Gastrointestinal/Abdominal: Soft, No Tenderness, No Distention, No Rebound Extremity: Normal ROM, No Calf Tenderness, No Swelling, Other (Healing wound to left lateral leg) Neurological/Psych: Oriented x3, Normal Speech, Normal Cognition ED Course And Treatment ECG: Interpreted By Me, Viewed By Me ECG Rhythm: Sinus Tachycardia Rate From EC O2 Sat by Pulse Oximetry: 98 (On RA) Pulse Ox Interpretation: Normal Medical Decision Making Medical Decision Making: Impression : tachycardia SP dialysis Plan: * Cardizem 30 mg PO * Lopressor 50 mg PO Disposition - Disposition Disposition: HOME/ ROUTINE Disposition Time: 21:00 Condition: IMPROVED Additional Instructions: Continue current medications Forms: [email or web address] (Malagasy) - Clinical Impression Clinical Impression: Atrial fibrillation, Palpitations - Scribe Statement The provider has reviewed the documentation as recorded by the Scribe Hussein Baeza All medical record entries made by the Scribe were at my direction and personally dictated by me. I have reviewed the chart and agree that the record accurately reflects my personal performance of the history, physical exam, medical decision making, and the department course for this patient. I have also personally directed, reviewed, and agree with the discharge instructions and disposition.
[2017-11-10 20:18] VITALS: RESP 20
--- NOTE | 2017-11-10 23:03 | C.PDOC ---
Time Seen by Provider: 11/10/17 18:02 Chief Complaint (Nursing): Palpitations Past Medical History Vital Signs: Last Vital Signs Temp 98.9 F 11/10/17 17:54 Pulse 111 H 11/10/17 20:17 Resp 20 11/10/17 20:17 BP 141/72 11/10/17 20:17 Pulse Ox 98 11/10/17 20:51 - Medical History PMH: Arthritis (BOTH KNEES), Asthma, Atrial Fibrillation, Cardia Arrhythmia (A- FIB), HTN, Hypercholesterolemia, Osteoporosis, Chronic Kidney Disease Surgical History: No Surg Hx - [facility] Procedures EXCISION OF BLADDER NECK, ENDO (05/04/17) EXCISION OF BLADDER, ENDO (05/04/17) EXTIRPATION OF MATTER FROM BLADDER NECK, ENDO (05/04/17) ING HERNIA REP-GRAFT NOS (05/08/14) INSERTION OF INFUSION DEV INTO SUP VENA CAVA, PERC APPROACH (05/04/17) PERFORMANCE OF URINARY FILTRATION, MULTIPLE (05/04/17) ULTRASONOGRAPHY OF SUPERIOR VENA CAVA, GUIDANCE (05/04/17) Family History: States: Unknown Family Hx - Social History Hx Tobacco Use: No Hx Alcohol Use: No Hx Substance Use: No - Immunization History Hx Tetanus Toxoid Vaccination: Yes Hx Influenza Vaccination: Yes Hx Pneumococcal Vaccination: Yes ED Course And Treatment O2 Sat by Pulse Oximetry: 98 (On RA) Disposition - Disposition Disposition: HOME/ ROUTINE Disposition Time: 23:00 Condition: IMPROVED Additional Instructions: Continue current medications Forms: [employer] (Dutch) - Clinical Impression Clinical Impression: Atrial fibrillation, Palpitations
[2017-11-10 23:26] VITALS: BP 117/62; PULSE 97; TEMP 98; O2SAT 95
--- NOTE | 2017-11-13 09:41 | CARD ---
APPROVED REPORT EKG Measurement Heart [id number] <Conclusion> Atrial fibrillation with rapid ventricular response Low voltage QRS Abnormal ECG
== END 2017-11-10 23:49 | disposition home or self-care (01) ==
LOC: C.ER 17:40
DX: I48.91 Unspecified atrial fibrillation (principal); R00.2 Palpitations; E78.00 Pure hypercholesterolemia, unspecified; I12.9 Hypertensive chronic kidney disease with stage 1 through stage 4 chronic kidney disease, or unspecified chronic kidney disease; N18.9 Chronic kidney disease, unspecified; Z99.2 Dependence on renal dialysis

== ENCOUNTER 2017-11-29 14:05 | Inpatient (IN) | payer MEDICARE ==
[2017-11-29 14:05] VITALS: BMI 23.4
[2017-11-29 15:43] LABS: BASO % 0.1 % (0.0-2.0); EOS % 0.9 % (0.0-4.0); LYMPH # 0.2 K/uL (1.0-4.3); LYMPH % 5.2 % (20.0-40.0); MEAN CORPUSCULAR HEMOGLOBIN 34.1 pg (27.0-31.0); MEAN CORPUSCULAR HGB CONC 32.6 g/dL (33.0-37.0); MEAN PLATELET VOLUME 7.5 fL (7.2-11.7); MONO # 0.3 K/uL (0.0-0.8); NEUT # 3.1 K/uL (1.8-7.0); NEUT % 86.8 % (50.0-75.0); NRBC % 1.3 % (0.0-2.0); PLATELET COUNT 223 K/uL (130-400); RBC 2.36 Mil/uL (4.40-5.90); RED CELL DISTRIBUTION WIDTH 19.2 % (11.5-14.5)
[2017-11-29 15:51] LABS: PROTHROMBIN TIME 10.6 SECONDS (9.7-12.2)
[2017-11-29 16:00] LABS: ALB/GLOB RATIO 1.2 (1.0-2.1); ALBUMIN 3.4 g/dL (3.5-5.0); CALCIUM 8.3 mg/dl (8.6-10.4)
[2017-11-29 16:02] LABS: MEAN CELL VOLUME 104.3 fL (80.0-94.0); WHITE BLOOD COUNT 3.6 K/uL (4.8-10.8)
[2017-11-29 16:22] LABS: LYMPHOCYTE 6 % (20-40); MONOCYTE 7 % (0-10); NEUTROPHIL 87 % (50-75); NUCLEATED RED BLOOD CELL 1 % (0-0); PLATELET ESTIMATE NORMAL (NORMAL); TOTAL CELLS COUNTED 100
[2017-11-29 16:23] LABS: ANISOCYTOSIS SLIGHT; HYPOCHROMIC SLIGHT; OVALOCYTES SLIGHT; POIKILOCYTOSIS SLIGHT
[2017-11-29 16:24] LABS: BURR CELLS SLIGHT
[2017-11-29 16:25] LABS: POLYCHROMIC SLIGHT; TOXIC GRANULATION PRESENT
--- NOTE | 2017-11-29 16:25 | C.PDOC ---
History Of Present Illness 82 y/o male, with history of end stage renal disease, comes to the ER from a [facility] for missing [facility]. The RN at the [facility] reports that the patient had epistaxis. Currently, the patient is not experiencing any epistaxis in the ER. Of note, the HPI is limited because the patient is baseline confused. Time Seen by Provider: 11/29/17 14:54 Chief Complaint (Nursing): ENT Problem History Per: Family History/Exam Limitations: other (Patient seems confused.) Onset/Duration Of Symptoms: Hrs Current Symptoms Are (Timing): Gone Severity: Moderate Past Medical History Reviewed: Historical Data, Nursing Documentation, Vital Signs Vital Signs: Last Vital Signs Temp 98.1 F 11/29/17 17:20 Pulse 107 H 11/29/17 17:20 Resp 18 11/29/17 17:20 BP 139/71 11/29/17 17:20 Pulse Ox 98 11/29/17 17:41 - Medical History PMH: Arthritis (BOTH KNEES), Asthma, Atrial Fibrillation, Cardia Arrhythmia (A- FIB), HTN, Hypercholesterolemia, Osteoporosis, Chronic Kidney Disease Surgical History: No Surg Hx - [facility] Procedures EXCISION OF BLADDER NECK, ENDO (05/04/17) EXCISION OF BLADDER, ENDO (05/04/17) EXTIRPATION OF MATTER FROM BLADDER NECK, ENDO (05/04/17) ING HERNIA REP-GRAFT NOS (05/08/14) INSERTION OF INFUSION DEV INTO SUP VENA CAVA, PERC APPROACH (05/04/17) PERFORMANCE OF URINARY FILTRATION, MULTIPLE (05/04/17) ULTRASONOGRAPHY OF SUPERIOR VENA CAVA, GUIDANCE (05/04/17) Family History: States: No Known Family Hx - Social History Hx Tobacco Use: No Hx Alcohol Use: No Hx Substance Use: No - Immunization History Hx Tetanus Toxoid Vaccination: Yes Hx Influenza Vaccination: Yes Hx Pneumococcal Vaccination: Yes Review Of Systems Except As Marked, All Systems Reviewed And Found Negative. Constitutional: Negative for: Fever, Chills Neurological: Positive for: Confusion, Headache Physical Exam - Physical Exam Appears: Non-toxic, No Acute Distress, Confused Skin: Normal Color, Warm, Dry Head: Atraumatic, Normacephalic Eye(s): bilateral: Normal Inspection, PERRL Ear(s): Bilateral: Normal Nose: Normal Oral Mucosa: Moist Neck: Supple Chest: Symmetrical Cardiovascular: Rhythm Regular Respiratory: Normal Breath Sounds, No Accessory Muscle Use Neurological/Psych: Other (patient seems confused) ED Course And Treatment - Laboratory Results Result Diagrams: 11/29/17 15:36 11/29/17 15:36 O2 Sat by Pulse Oximetry: 98 (RA) Pulse Ox Interpretation: Normal Medical Decision Making Medical Decision Making: Plan: --Labs Updates 16:31 - Patient admitted to hospital ekg afib 108 h/o of afib. non specific st twave changes discussed with dr madrigal arrangements made for hd. dr palmer accepts Disposition - Disposition Disposition: HOSPITALIZED Disposition Time: 17:53 Condition: FAIR - Clinical Impression Clinical Impression: Renal failure, Epistaxis - Scribe Statement The provider has reviewed the documentation as recorded by the Cathy Morales Provider Attestation: All medical record entries made by the Cathy were at my direction and personally dictated by me. I have reviewed the chart and agree that the record accurately reflects my personal performance of the history, physical exam, medical decision making, and the department course for this patient. I have also personally directed, reviewed, and agree with the discharge instructions and disposition.
--- NOTE | 2017-11-29 22:38 | CP.PCM.HP ---
History of Present Illness - History of Present Illness History of Present Illness: 82 year old male who is a resident at [facility] developed severe epistaxis. He was transported to the [facility] ER for treatment. Patient missed dialysis treatment which was scheduled for today. Patient is under treatment for renal insufficiency and metastatic liver disease. Past history includes prostate CA,thrombophlebitis, CHF, anemia and atrial fibrillation. Admission was advised. Present on Admission - Present on Admission Any Indicators Present on Admission: No History of DVT/PE: No History of Uncontrolled Diabetes: No Urinary Catheter: No Decubitus Ulcer Present: No History Surgical Site Infection Following: None Review of Systems - Review of Systems Systems not reviewed;Unavailable: Altered Mental Status - Constitutional Constitutional: Malaise - EENT Nose/Mouth/Throat: Epistaxis - Cardiovascular Cardiovascular: Irregular Heart Rhythm - Respiratory Respiratory: Dyspnea on Exertion - Genitourinary Genitourinary: Urinary Frequency - Musculoskeletal Musculoskeletal: Arthralgias - Integumentary Integumentary: Dry Skin - Neurological Neurological: Dizziness, Memory Loss - Psychiatric Psychiatric: Depression Past Patient History - Tetanus Immunizations Tetanus Immunization: Up to Date - Past Medical History & Family History Past Medical History?: Yes - Past Social History Smoking Status: Never Smoked Chewing Tobacco Use: No Cigar Use: No Alcohol: None Drugs: Denies Home Situation {Lives}: Alone - CARDIAC Hx Atrial Fibrillation: Yes Hx Cardia Arrhythmia: Yes (A-FIB) Hx Hypercholesterolemia: Yes Hx Hypertension: Yes - PULMONARY Hx Asthma: Yes - NEUROLOGICAL Hx Neurological Disorder: No - HEENT Hx HEENT Problems: Yes Hx Cataracts: Yes Hx Epistaxis: Yes Hx Sinusitis: Yes - RENAL Hx Chronic Kidney Disease: Yes Hx Dialysis: Yes Hx Renal Failure: Yes - ENDOCRINE/METABOLIC Hx Endocrine Disorders: No - HEMATOLOGICAL/ONCOLOGICAL Hx Blood Disorders: No Hx Cancer: Yes (HX:BLADDER CANCER) - INTEGUMENTARY Hx Dermatological Problems: No - MUSCULOSKELETAL/RHEUMATOLOGICAL Hx Arthritis: Yes (BOTH KNEES) Hx Osteoarthritis: Yes Hx Osteoporosis: Yes - GASTROINTESTINAL Hx Gastrointestinal Disorders: Yes Hx Gastroesophageal Reflux: Yes Other/Comment: MULTIPLE LESIONS LIVER - GENITOURINARY/GYNECOLOGICAL Hx Genitourinary Disorders: Yes Hx Prostate Cancer: Yes Other/Comment: HX: BLADDER CANCER - PSYCHIATRIC Hx Substance Use: No - SURGICAL HISTORY Hx Surgeries: Yes Hx Arteriovenous Shunt: Yes Hx Cataract Extraction: Yes (BILATERAL IOL) Hx Herniorrhaphy: Yes Hx Vascular Access Device: Yes Other/Comment: HX:CYSTOSCOPY. HX: INSERTION PERMACATH RIGHT FEMORAL(05/04/17). HX: LIVER BIOPSY - ANESTHESIA Hx Anesthesia: Yes Hx Anesthesia Reactions: No Hx Malignant Hyperthermia: No Has any member of the family had a problem w/ anesthesia?: No Meds Allergies/Adverse Reactions: Allergies Allergy/AdvReac Type Severity Reaction Status Date / Time No Known Allergies Allergy Verified 11/29/17 15:04 Physical Exam - Constitutional Appears: Chronically Ill - Head Exam Head Exam: NORMOCEPHALIC - Eye Exam Eye Exam: PERRL Pupil Exam: NORMAL ACCOMODATION - ENT Exam ENT Exam: Normal Exam - Neck Exam Neck exam: Positive for: Normal Inspection - Respiratory Exam Respiratory Exam: Decreased Breath Sounds - Cardiovascular Exam Cardiovascular Exam: Irregular Rhythm - GI/Abdominal Exam GI & Abdominal Exam: Normal Bowel Sounds - Rectal Exam Rectal Exam: Deferred - Exam Exam: NORMAL INSPECTION - Extremities Exam Extremities exam: Positive for: joint swelling - Back Exam Back exam: NORMAL INSPECTION - Neurological Exam Neurological exam: Altered - Psychiatric Exam Psychiatric exam: Depressed - Skin Skin Exam: Dry Results - Vital Signs Recent Vital Signs: Last Vital Signs Temp 97.9 F 11/29/17 21:10 Pulse 159 H 11/29/17 21:10 Resp 16 11/29/17 21:10 BP 106/78 11/29/17 21:10 Pulse Ox 100 11/29/17 21:10 - Labs Result Diagrams: 11/29/17 15:36 11/29/17 15:36 Labs: Laboratory Results - last 24 hr 11/29/17 11/29/17 11/29/17 15:36 15:36 15:36 WBC 3.6 L D RBC 2.36 L Hgb 8.0 L Hct 24.6 L MCV 104.3 H D MCH 34.1 H MCHC 32.6 L RDW 19.2 H Plt Count 223 MPV 7.5 Neut % (Auto) 86.8 H Lymph % (Auto) 5.2 L [place] % (Auto) 7.0 Eos % (Auto) 0.9 Baso % (Auto) 0.1 Neut # 3.1 Lymph # 0.2 L [place] # 0.3 Eos # 0.0 Baso # 0.0 Neutrophils % (Manual) 87 H Lymphocytes % (Manual) 6 L Monocytes % (Manual) 7 Nucleated RBC % 1 H Toxic Granulation Present Platelet Estimate Normal Polychromasia Slight Hypochromasia (manual) Slight Poikilocytosis (manual Slight Anisocytosis (manual) Slight Macrocytosis (manual) Slight Ovalocytes Slight [place] Cells Slight PT 10.6 INR 1.0 APTT 26 Sodium 132 Potassium 6.1 H Chloride 92 L Carbon Dioxide 27 Anion Gap 19 BUN 167 H* D Creatinine 8.7 H* Est GFR ( Amer) 7 Est GFR (Non-Af Amer) 6 Random Glucose 114 H Calcium 8.3 L Total Bilirubin 0.5 AST 34 ALT 40 Alkaline Phosphatase 96 Total Protein 6.2 L Albumin 3.4 L D Globulin 2.9 Albumin/Globulin Ratio 1.2 Assessment & Plan (1) Metastatic carcinoma to liver Status: Acute (2) Epistaxis Status: Acute (3) Renal failure Status: Acute (4) ASHD (arteriosclerotic heart disease) Status: Acute (5) Atrial fibrillation Status: Acute (6) Degenerative joint disease Status: Acute
[2017-11-29] MEDS ORDERED: Oxycodone/Acetaminophen 5/325 mg Tab PO PRN (22:48)
[2017-11-30] MEDS ORDERED: Home Med 1 UNIT (Prednisone [Prednisone] 10 MG) PO SCH (10:00)
[2017-11-30] MEDS ORDERED: Pantoprazole 40 mg EC Tab PO SCH (10:00)
[2017-11-30] MEDS: Pantoprazole 40 mg EC Tab PO SCH (12:13)
--- NOTE | 2017-11-30 15:57 | CP.PCM.CON ---
History of Present Illness - History of Present Illness History of Present Illness: Consult requested for management of ESRD 78 yo male, presents with anemia associated with epistaxis, s/p blood transfusion and HD yesterday. Also with development of tachyarrhythmia, and now in ICU. No distress at present. Denies chest pain or sob. No further bleeding. No fever or chills. Uses left tasia for HD. Review of Systems - Constitutional Constitutional: absent: Fatigue - EENT Eyes: absent: Change in Vision, Dry Eye Nose/Mouth/Throat: Epistaxis. absent: Nasal Congestion - Cardiovascular Cardiovascular: Rapid Heart Rate. absent: Chest Pain, Edema - Respiratory Respiratory: absent: Dyspnea, Hemoptysis - Neurological Neurological: absent: Abnormal Gait, Abnormal Hearing - Psychiatric Psychiatric: absent: Change in Appetite, Confusion - Hematologic/Lymphatic Hematologic: absent: Easy Bruising, Lymphadenopathy Past Patient History - Tetanus Immunizations Tetanus Immunization: Up to Date - Past Medical History & Family History Past Medical History?: Yes - Past Social History Smoking Status: Never Smoked - CARDIAC Hx Cardiac Disorders: Yes (A FIB, CARDIAC ARRHYTMIA) Hx Hypercholesterolemia: Yes Hx Hypertension: Yes - PULMONARY Hx Asthma: Yes - NEUROLOGICAL Hx Neurological Disorder: No - HEENT Hx HEENT Problems: Yes Hx Cataracts: Yes Hx Epistaxis: Yes Hx Sinusitis: Yes - RENAL Hx Chronic Kidney Disease: Yes Hx Dialysis: Yes Type of Dialysis Access: right arm avs Date of Last Dialysis Treatment: 11/29/17 Hx Renal Failure: Yes - ENDOCRINE/METABOLIC Hx Endocrine Disorders: No - HEMATOLOGICAL/ONCOLOGICAL Hx Blood Disorders: No Hx Anemia: Yes Hx Cancer: Yes (HX:BLADDER CANCER) - INTEGUMENTARY Hx Dermatological Problems: No Other/Comment: moisture associate derm sacrum/buttocks - MUSCULOSKELETAL/RHEUMATOLOGICAL Hx Arthritis: Yes - GASTROINTESTINAL Hx Gastrointestinal Disorders: Yes Hx Gastroesophageal Reflux: Yes Other/Comment: MULTIPLE LESIONS LIVER - GENITOURINARY/GYNECOLOGICAL Hx Genitourinary Disorders: Yes Hx Prostate Cancer: Yes Other/Comment: HX: BLADDER CANCER - PSYCHIATRIC Hx Substance Use: No - SURGICAL HISTORY Hx Surgeries: Yes Hx Arteriovenous Shunt: Yes Hx Cataract Extraction: Yes (BILATERAL IOL) Hx Herniorrhaphy: Yes Hx Vascular Access Device: Yes Other/Comment: HX:CYSTOSCOPY. HX: INSERTION PERMACATH RIGHT FEMORAL(05/04/17). HX: LIVER BIOPSY - ANESTHESIA Hx Anesthesia: Yes Hx Anesthesia Reactions: No Hx Malignant Hyperthermia: No Has any member of the family had a problem w/ anesthesia?: No Meds Allergies/Adverse Reactions: Allergies Allergy/AdvReac Type Severity Reaction Status Date / Time No Known Allergies Allergy Verified 11/29/17 15:04 - Medications Medications: Current Medications Docusate Sodium (Colace) 100 mg PO DAILY [facility] Last Admin: 11/30/17 12:12 Dose: 100 mg Ferrous Sulfate (Feosol) 325 mg PO DAILY [facility] Last Admin: 11/30/17 12:12 Dose: 325 mg Heparin Sodium (Porcine) (Heparin) 5,000 units SC Q12 [facility] Last Admin: 11/30/17 12:11 Dose: 5,000 units Oxycodone/Acetaminophen (Percocet 5/325 Mg Tab) 1 tab PO Q6 PRN PRN Reason: Pain, moderate (4-7) Stop: 12/02/17 22:49 Pantoprazole Sodium (Protonix Ec Tab) 40 mg PO DAILY [facility] Last Admin: 11/30/17 12:13 Dose: 40 mg Prednisone (Prednisone Tab) 10 mg PO DAILY [facility] Zinc Sulfate (Zinc Sulfate 220 Mg Cap) 220 mg PO DAILY [facility] Last Admin: 11/30/17 12:13 Dose: 220 mg Physical Exam - Constitutional Appears: No Acute Distress, Chronically Ill - Head Exam Head Exam: NORMAL INSPECTION - Eye Exam Eye Exam: EOMI, Normal appearance - ENT Exam ENT Exam: Mucous Membranes Moist - Neck Exam Neck exam: Positive for: Full Rom. Negative for: Lymphadenopathy - Respiratory Exam Respiratory Exam: NORMAL BREATHING PATTERN. absent: Accessory Muscle Use - Cardiovascular Exam Cardiovascular Exam: REGULAR RHYTHM. absent: Rubs - Extremities Exam Extremities exam: Positive for: full ROM. Negative for: pedal edema - Neurological Exam Neurological exam: Alert, Oriented x3 Results - Vital Signs Recent Vital Signs: Last Vital Signs Temp 98.2 F 11/30/17 14:00 Pulse 111 H 11/30/17 14:00 Resp 17 11/30/17 14:00 BP 125/72 11/30/17 14:00 Pulse Ox 99 11/30/17 14:00 - Labs Result Diagrams: 11/29/17 15:36 11/30/17 06:25 Labs: Laboratory Results - last 24 hr 01/02/18 01/02/18 01/02/18 15:36 15:36 15:36 WBC 3.6 L D RBC 2.36 L Hgb 8.0 L Hct 24.6 L MCV 104.3 H D MCH 34.1 H MCHC 32.6 L RDW 19.2 H Plt Count 223 MPV 7.5 Neut % (Auto) 86.8 H Lymph % (Auto) 5.2 L [place] % (Auto) 7.0 Eos % (Auto) 0.9 Baso % (Auto) 0.1 Neut # 3.1 Lymph # 0.2 L [place] # 0.3 Eos # 0.0 Baso # 0.0 Neutrophils % (Manual) 87 H Lymphocytes % (Manual) 6 L Monocytes % (Manual) 7 Nucleated RBC % 1 H Toxic Granulation Present Platelet Estimate Normal Polychromasia Slight Hypochromasia (manual) Slight Poikilocytosis (manual Slight Anisocytosis (manual) Slight Macrocytosis (manual) Slight Ovalocytes Slight [place] Cells Slight PT 10.6 INR 1.0 APTT 26 Sodium 132 Potassium 6.1 H Chloride 92 L Carbon Dioxide 27 Anion Gap 19 BUN 167 H* D Creatinine 8.7 H* Est GFR ( Amer) 7 Est GFR (Non-Af Amer) 6 Random Glucose 114 H Calcium 8.3 L Total Bilirubin 0.5 AST 34 ALT 40 Alkaline Phosphatase 96 Total Protein 6.2 L Albumin 3.4 L D Globulin 2.9 Albumin/Globulin Ratio 1.2 11/30/17 06:25 WBC RBC Hgb Hct MCV MCH MCHC RDW Plt Count MPV Neut % (Auto) Lymph % (Auto) [place] % (Auto) Eos % (Auto) Baso % (Auto) Neut # Lymph # [place] # Eos # Baso # Neutrophils % (Manual) Lymphocytes % (Manual) Monocytes % (Manual) Nucleated RBC % Toxic Granulation Platelet Estimate Polychromasia Hypochromasia (manual) Poikilocytosis (manual Anisocytosis (manual) Macrocytosis (manual) Ovalocytes [place] Cells PT INR APTT Sodium 134 Potassium 5.0 Chloride 95 L Carbon Dioxide 30 Anion Gap BUN Creatinine Est GFR ( Amer) Est GFR (Non-Af Amer) Random Glucose Calcium Total Bilirubin AST ALT Alkaline Phosphatase Total Protein Albumin Globulin Albumin/Globulin Ratio Assessment & Plan - Assessment and Plan (Free Text) Assessment: esrd severe epistaxis svt cardiology recommendations maint HD monitor hemoglobin
--- NOTE | 2017-11-30 17:58 | CP.PCM.CON ---
History of Present Illness - History of Present Illness History of Present Illness: 81 yo man with history of ESRD on hemodialysis, admitted with epistaxis, better now. 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 The patient is currently on palliative chemo with Gemzar, tolerating fairly well , but has been having recent increase in CEA levels Past Patient History - Tetanus Immunizations Tetanus Immunization: Up to Date - Past Medical History & Family History Past Medical History?: Yes - Past Social History Smoking Status: Never Smoked - CARDIAC Hx Cardiac Disorders: Yes (A FIB, CARDIAC ARRHYTMIA) Hx Hypercholesterolemia: Yes Hx Hypertension: Yes - PULMONARY Hx Asthma: Yes - NEUROLOGICAL Hx Neurological Disorder: No - HEENT Hx HEENT Problems: Yes Hx Cataracts: Yes Hx Epistaxis: Yes Hx Sinusitis: Yes - RENAL Hx Chronic Kidney Disease: Yes Hx Dialysis: Yes Type of Dialysis Access: right arm avs Date of Last Dialysis Treatment: 11/29/17 Hx Renal Failure: Yes - ENDOCRINE/METABOLIC Hx Endocrine Disorders: No - HEMATOLOGICAL/ONCOLOGICAL Hx Blood Disorders: No Hx Anemia: Yes Hx Cancer: Yes (HX:BLADDER CANCER) - INTEGUMENTARY Hx Dermatological Problems: No Other/Comment: moisture associate derm sacrum/buttocks - MUSCULOSKELETAL/RHEUMATOLOGICAL Hx Arthritis: Yes - GASTROINTESTINAL Hx Gastrointestinal Disorders: Yes Hx Gastroesophageal Reflux: Yes Other/Comment: MULTIPLE LESIONS LIVER - GENITOURINARY/GYNECOLOGICAL Hx Genitourinary Disorders: Yes Hx Prostate Cancer: Yes Other/Comment: HX: BLADDER CANCER - PSYCHIATRIC Hx Substance Use: No - SURGICAL HISTORY Hx Surgeries: Yes Hx Arteriovenous Shunt: Yes Hx Cataract Extraction: Yes (BILATERAL IOL) Hx Herniorrhaphy: Yes Hx Vascular Access Device: Yes Other/Comment: HX:CYSTOSCOPY. HX: INSERTION PERMACATH RIGHT FEMORAL(05/04/17). HX: LIVER BIOPSY - ANESTHESIA Hx Anesthesia: Yes Hx Anesthesia Reactions: No Hx Malignant Hyperthermia: No Has any member of the family had a problem w/ anesthesia?: No Meds Allergies/Adverse Reactions: Allergies Allergy/AdvReac Type Severity Reaction Status Date / Time No Known Allergies Allergy Verified 11/29/17 15:04 - Medications Medications: Current Medications Docusate Sodium (Colace) 100 mg PO DAILY [facility] Last Admin: 11/30/17 12:12 Dose: 100 mg Ferrous Sulfate (Feosol) 325 mg PO DAILY [facility] Last Admin: 11/30/17 12:12 Dose: 325 mg Heparin Sodium (Porcine) (Heparin) 5,000 units SC Q12 [facility] Last Admin: 11/30/17 12:11 Dose: 5,000 units Oxycodone/Acetaminophen (Percocet 5/325 Mg Tab) 1 tab PO Q6 PRN PRN Reason: Pain, moderate (4-7) Stop: 12/02/17 22:49 Pantoprazole Sodium (Protonix Ec Tab) 40 mg PO DAILY [facility] Last Admin: 11/30/17 12:13 Dose: 40 mg Prednisone (Prednisone Tab) 10 mg PO DAILY [facility] Zinc Sulfate (Zinc Sulfate 220 Mg Cap) 220 mg PO DAILY [facility] Last Admin: 11/30/17 12:13 Dose: 220 mg Results - Vital Signs Recent Vital Signs: Last Vital Signs Temp 98.2 F 11/30/17 14:00 Pulse 111 H 11/30/17 14:00 Resp 17 11/30/17 14:00 BP 125/72 11/30/17 14:00 Pulse Ox 99 11/30/17 14:00 - Labs Result Diagrams: 11/29/17 15:36 11/30/17 06:25 Labs: Laboratory Results - last 24 hr 11/30/17 06:25 Sodium 134 Potassium 5.0 Chloride 95 L Carbon Dioxide 30 Assessment & Plan (1) Metastatic carcinoma to liver Assessment and Plan: 82 yo man with 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 The patient has been tolerating single agent Gemzar, but has had recently increasing CEA leval. The patient and the friend are aware of the advanced and incurable nature of the disease. Will repeat CEA level and get follow up CAT scans for comparison Status: Acute
--- NOTE | 2017-11-30 23:29 | CP.PCM.PN ---
Subjective - Date & Time of Evaluation Date of Evaluation: 11/30/17 Time of Evaluation: 13:40 - Subjective Subjective: Patient in no acute distress. Hgb 8. Dialysis done today. Patient evaluated by nephrology and hematology.General status now sabilized with no epistaxis. Objective - Vital Signs/Intake and Output Vital Signs (last 24 hours): Temp Pulse Resp BP Pulse Ox 98.4 F 124 H 23 117/67 99 11/30/17 20:00 11/30/17 20:00 11/30/17 20:00 11/30/17 20:00 11/30/17 20:00 Intake and Output: 11/30/17 12/01/17 18:59 06:59 Intake Total 370 Balance 370 - Medications Medications: Current Medications Docusate Sodium (Colace) 100 mg PO DAILY [facility] Last Admin: 11/30/17 12:12 Dose: 100 mg Ferrous Sulfate (Feosol) 325 mg PO DAILY [facility] Last Admin: 11/30/17 12:12 Dose: 325 mg Heparin Sodium (Porcine) (Heparin) 5,000 units SC Q12 [facility] Last Admin: 11/30/17 22:51 Dose: 5,000 units Oxycodone/Acetaminophen (Percocet 5/325 Mg Tab) 1 tab PO Q6 PRN PRN Reason: Pain, moderate (4-7) Stop: 12/02/17 22:49 Pantoprazole Sodium (Protonix Ec Tab) 40 mg PO DAILY [facility] Last Admin: 11/30/17 12:13 Dose: 40 mg Prednisone (Prednisone Tab) 10 mg PO DAILY [facility] Zinc Sulfate (Zinc Sulfate 220 Mg Cap) 220 mg PO DAILY [facility] Last Admin: 11/30/17 12:13 Dose: 220 mg - Labs Labs: 11/29/17 15:36 11/30/17 06:25 PT 10.6 SECONDS (9.7-12.2) 11/29/17 15:36 INR 1.0 11/29/17 15:36 APTT 26 SECONDS (21-34) 11/29/17 15:36 - Constitutional Appears: Chronically Ill - Head Exam Head Exam: NORMOCEPHALIC - Eye Exam Eye Exam: Normal appearance Pupil Exam: NORMAL ACCOMODATION - ENT Exam ENT Exam: Normal Exam - Neck Exam Neck Exam: Normal Inspection - Respiratory Exam Respiratory Exam: Decreased Breath Sounds - Cardiovascular Exam Cardiovascular Exam: Irregular Rhythm, REGULAR RHYTHM - GI/Abdominal Exam GI & Abdominal Exam: Hyperactive Bowel Sounds - Rectal Exam Rectal Exam: Deferred - Exam Exam: NORMAL INSPECTION - Extremities Exam Extremities Exam: Joint Swelling - Back Exam Back Exam: NORMAL INSPECTION - Neurological Exam Neurological Exam: Oriented x3 - Psychiatric Exam Psychiatric exam: Normal Mood - Skin Skin Exam: Dry Assessment and Plan (1) Metastatic carcinoma to liver Status: Acute (2) Epistaxis Status: Acute (3) Renal failure Status: Acute (4) ASHD (arteriosclerotic heart disease) Status: Acute (5) Atrial fibrillation Status: Acute (6) Degenerative joint disease Status: Acute
[2017-12-01 06:39] LABS: BASO % 0.1 % (0.0-2.0); EOS % 0.2 % (0.0-4.0); HEMOGLOBIN 6.7 g/dL (12.0-18.0); LYMPH # 0.4 K/uL (1.0-4.3); LYMPH % 7.9 % (20.0-40.0); MEAN CELL VOLUME 105.8 fL (80.0-94.0); MEAN CORPUSCULAR HEMOGLOBIN 35.2 pg (27.0-31.0); MEAN CORPUSCULAR HGB CONC 33.3 g/dL (33.0-37.0); MONO # 0.7 K/uL (0.0-0.8); MONO % 13.4 % (0.0-10.0); NEUT # 4.2 K/uL (1.8-7.0); NEUT % 78.4 % (50.0-75.0); NRBC % 0.8 % (0.0-2.0); PLATELET COUNT 148 K/uL (130-400); RBC 1.91 Mil/uL (4.40-5.90); RED CELL DISTRIBUTION WIDTH 19.4 % (11.5-14.5); WHITE BLOOD COUNT 5.3 K/uL (4.8-10.8)
[2017-12-01 07:00] LABS: CALCIUM 7.6 mg/dl (8.6-10.4)
[2017-12-01 08:34] LABS: MONOCYTE 12 % (0-10); NEUTROPHIL 79 % (50-75); TOTAL CELLS COUNTED 100
[2017-12-01 08:35] LABS: LYMPHOCYTE 9 % (20-40); PLATELET ESTIMATE NORMAL (NORMAL)
[2017-12-01 08:36] LABS: ANISOCYTOSIS MODERATE; BURR CELLS MODERATE; HYPOCHROMIC MODERATE; MICROCYTOSIS SLIGHT; OVALOCYTES MODERATE; POIKILOCYTOSIS MODERATE; TARGET CELLS SLIGHT
[2017-12-01 08:37] LABS: POLYCHROMIC SLIGHT
[2017-12-01 08:38] LABS: ACANTHOCYTES SLIGHT; TEARDROP CELLS SLIGHT
[2017-12-01] MEDS: Pantoprazole 40 mg EC Tab PO SCH ×2 (10:00→15:08)
--- NOTE | 2017-12-01 11:05 | CT ---
PROCEDURE: CT Chest, Abdomen and Pelvis without intravenous contrast HISTORY: follow up of liver and lung lesions COMPARISON: 05/07/2017 TECHNIQUE: Radiation dose: Total exam DLP = 738.11 mGy-cm. This CT exam was performed using one or more of the following dose reduction techniques: Automated exposure control, adjustment of the mA and/or kV according to patient size, and/or use of iterative reconstruction technique. FINDINGS: CT CHEST WITHOUT CONTRAST: LUNGS: Multifocal infiltrates upper lobe predilection the overall appearance suggests an acute inflammatory process, less likely atypical pulmonary edema. MEDIASTINUM: Unremarkable. Normal caliber aorta and pulmonary arterial trunk. Normal size heart. LYMPH NODES: Unremarkable. PLEURA: Unremarkable. No pneumothorax. No pleural fluid. BONES: Unremarkable. OTHER FINDINGS: None. CT ABDOMEN AND PELVIS: LIVER: UnremarkableMultiple hepatic masses likely cysts based on appearance and Hounsfield unit values. The largest in the left hepatic lobe tech measures 4.9 x 5.8 cm. No gross lesion or ductal dilatation. GALLBLADDER AND BILE DUCTS: Unremarkable. PANCREAS: Unremarkable. No gross lesion or ductal dilatation. SPLEEN: Unremarkable. ADRENALS: Unremarkable. No mass. KIDNEYS AND URETERS: Severe bilateral hydronephrosis left greater than right. Simple cysts as well as complex perhaps proteinaceous cyst exophytic lower pole right kidney 2.4 cm. Mean Hounsfield unit values 55.3 VASCULATURE: Unremarkable. No aortic aneurysm. BOWEL: Unremarkable. No obstruction. No gross mural thickening. APPENDIX: Normal appendix. PERITONEUM: Unremarkable. No free fluid. No free air. LYMPH NODES: Unremarkable. No enlarged lymph nodes. BLADDER: Tumor involving the base of the bladder bilaterally right greater than left. This has resulted in bilateral severe hydroureter and hydronephrosis. REPRODUCTIVE: Unremarkable. BONES: Loss of height L1, L3 and L5 probably osteopenic or posttraumatic fractures. OTHER FINDINGS: Diffuse anasarca. IMPRESSION: 1. 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 Severe hydroureter, hydronephrosis left greater than right. 2. Benign hepatic cysts (3). These are approximately stable accounting for differences in technique. 3. Multifocal upper lobe infiltrates common new findings compared to the prior CT scan from 05/07/2013. 4. Persistent bilateral pleural effusions with lower lobe compressive atelectasis approximately stable.
[2017-12-02] MEDS: Albuterol 0.083% Inhal Sol (2.5 mg/3 mL) UD INH SCH ×4 (01:09→20:23)
[2017-12-02 06:12] LABS: EOS % 0.1 % (0.0-4.0); LYMPH # 0.3 K/uL (1.0-4.3); LYMPH % 4.3 % (20.0-40.0); MEAN CELL VOLUME 105.8 fL (80.0-94.0); MEAN CORPUSCULAR HEMOGLOBIN 35.4 pg (27.0-31.0); MEAN CORPUSCULAR HGB CONC 33.5 g/dL (33.0-37.0); MEAN PLATELET VOLUME 7.4 fL (7.2-11.7); MONO # 0.9 K/uL (0.0-0.8); MONO % 13.4 % (0.0-10.0); NEUT # 5.3 K/uL (1.8-7.0); NEUT % 82.2 % (50.0-75.0); NRBC % 0.7 % (0.0-2.0); PLATELET COUNT 131 K/uL (130-400); RBC 1.82 Mil/uL (4.40-5.90); RED CELL DISTRIBUTION WIDTH 20.3 % (11.5-14.5); WHITE BLOOD COUNT 6.5 K/uL (4.8-10.8)
[2017-12-02 06:25] LABS: HEMOGLOBIN 6.5 g/dL (12.0-18.0)
[2017-12-02 06:41] LABS: ALB/GLOB RATIO 1.2 (1.0-2.1); ALBUMIN 2.6 g/dL (3.5-5.0); CALCIUM 7.4 mg/dl (8.6-10.4)
--- NOTE | 2017-12-02 07:06 | CARD ---
APPROVED REPORT EKG Measurement Heart [id number] <Conclusion> Atrial fibrillation with rapid ventricular response Low voltage QRS Abnormal ECG
--- NOTE | 2017-12-02 08:34 | RAD ---
HISTORY: infiltrates COMPARISON: CT chest from 12/01/2017 FINDINGS: LUNGS: There is multifocal pneumonia and small pleural effusions ill-defined multifocal airspace disease in the lungs, worse in the right upper lobe. PLEURA: Suspect small pleural effusions, no pneumothorax apparent. CARDIOVASCULAR: There is mild cardiomegaly P prominent central vasculature. OSSEOUS STRUCTURES: No significant abnormalities. VISUALIZED UPPER ABDOMEN: Normal. OTHER FINDINGS: None. IMPRESSION: Multifocal airspace disease in the lungs, worse in the right upper lobe may represent pneumonia or pulmonary edema. Also suspected are small pleural effusions. Clinical correlation and follow-up is advised.
[2017-12-02 08:38] LABS: ANISOCYTOSIS SLIGHT; BANDS 1 % (0-2); LYMPHOCYTE 8 % (20-40); MONOCYTE 9 % (0-10); NEUTROPHIL 82 % (50-75); NUCLEATED RED BLOOD CELL 2 % (0-0); PLATELET ESTIMATE NORMAL (NORMAL); POIKILOCYTOSIS SLIGHT; TOTAL CELLS COUNTED 100
[2017-12-02 08:39] LABS: BURR CELLS SLIGHT; HYPOCHROMIC MODERATE; MICROCYTOSIS SLIGHT; OVALOCYTES SLIGHT; TEARDROP CELLS SLIGHT
[2017-12-02 08:40] LABS: TARGET CELLS MODERATE
--- NOTE | 2017-12-02 08:46 | CP.PCM.PN ---
Subjective - Date & Time of Evaluation Date of Evaluation: 12/02/17 Time of Evaluation: 08:44 - Subjective Subjective: no overt epistaxis now Hg down again- 6.5 h/o metastatic disease noted s/p dialysis 12/01 not dyspneic; no CPs, n, v, diarrhea Objective - Vital Signs/Intake and Output Vital Signs (last 24 hours): Temp Pulse Resp BP Pulse Ox 97.5 F L 105 H 21 133/71 100 12/02/17 02:00 12/02/17 02:00 12/02/17 02:00 12/02/17 02:00 12/02/17 02:00 - Medications Medications: Current Medications Albuterol Sulfate (Albuterol 0.083% Inhal Ingris (2.5 Mg/3 Ml) Ud) 1.25 mg INH RQ6 [facility] Last Admin: 12/02/17 08:17 Dose: 1.25 mg Diltiazem HCl (Cardizem) 30 mg PO TID [facility] Last Admin: 12/01/17 17:52 Dose: 30 mg Docusate Sodium (Colace) 100 mg PO DAILY [facility] Last Admin: 12/01/17 15:06 Dose: 100 mg Ferrous Sulfate (Feosol) 325 mg PO DAILY [facility] Last Admin: 12/01/17 15:07 Dose: 325 mg Heparin Sodium (Porcine) (Heparin) 5,000 units SC Q12 [facility] Last Admin: 12/01/17 21:15 Dose: 5,000 units Oxycodone/Acetaminophen (Percocet 5/325 Mg Tab) 1 tab PO Q6 PRN PRN Reason: Pain, moderate (4-7) Stop: 12/02/17 22:49 Pantoprazole Sodium (Protonix Ec Tab) 40 mg PO DAILY [facility] Last Admin: 12/01/17 15:08 Dose: 40 mg Prednisone (Prednisone Tab) 10 mg PO DAILY [facility] Last Admin: 12/01/17 10:00 Dose: Not Given Zinc Sulfate (Zinc Sulfate 220 Mg Cap) 220 mg PO DAILY [facility] Last Admin: 12/01/17 15:06 Dose: 220 mg - Labs Labs: 12/02/17 05:56 12/02/17 05:58 PT 10.6 SECONDS (9.7-12.2) 11/29/17 15:36 INR 1.0 11/29/17 15:36 APTT 26 SECONDS (21-34) 11/29/17 15:36 - Constitutional Appears: No Acute Distress, Chronically Ill - Head Exam Head Exam: ATRAUMATIC, NORMAL INSPECTION - Eye Exam Eye Exam: EOMI, Normal appearance - Neck Exam Neck Exam: Normal Inspection. absent: Tenderness - Respiratory Exam Respiratory Exam: Clear to Ausculation Bilateral, NORMAL BREATHING PATTERN - Cardiovascular Exam Cardiovascular Exam: REGULAR RHYTHM, +S1 - GI/Abdominal Exam GI & Abdominal Exam: Soft. absent: Tenderness - Extremities Exam Extremities Exam: Normal Inspection. absent: Tenderness - Neurological Exam Neurological Exam: Alert, CN II-XII Intact - Skin Skin Exam: Dry, Warm Assessment and Plan (1) ESRD (end stage renal disease) Status: Acute (2) Epistaxis Status: Acute (3) Metastatic carcinoma to liver Status: Acute - Assessment and Plan (Free Text) Plan: repeat dialysis ijn AM repeat blood transfusion now and in AM at dialysis blood transfusion in room today 1 unit prbc recommend stopping heparin sq
[2017-12-02] MEDS: Pantoprazole 40 mg EC Tab PO SCH (09:06)
[2017-12-02 18:38] LABS: ABG ALLEN TEST POS; ARTERIAL BLOOD GAS HCO3 26.2 mmol/L (21-28); ARTERIAL BLOOD GAS HEMOGLOBIN 8.5 g/dL (11.7-17.4); ARTERIAL BLOOD GAS O2 SAT 94.6 % (95-98); ARTERIAL BLOOD GAS PCO2 37 mm/Hg (35-45); ARTERIAL BLOOD GAS PH 7.45 (7.35-7.45); ARTERIAL BLOOD GAS PO2 62 mm/Hg (80-100); ARTERIAL BLOOD GAS TCO2 26.8 mmol/L (22-28)
--- NOTE | 2017-12-02 21:55 | CP.PCM.PN ---
Subjective - Date & Time of Evaluation Date of Evaluation: 12/02/17 Time of Evaluation: 13:35 - Subjective Subjective: Patient alert and responsive. Hgb 6.5. One unit of packed cells ordered for today.Anther unit will be given with dialysis in AM. Continue other supportive measures. Objective - Vital Signs/Intake and Output Vital Signs (last 24 hours): Temp Pulse Resp BP Pulse Ox 98.7 F 98 H 18 149/83 99 12/02/17 21:44 12/02/17 20:32 12/02/17 20:32 12/02/17 20:32 12/02/17 18:00 Intake and Output: 12/02/17 12/03/17 18:59 06:59 Intake Total 1460 Output Total 500 Balance 960 - Medications Medications: Current Medications Albuterol Sulfate (Albuterol 0.083% Inhal Ingris (2.5 Mg/3 Ml) Ud) 1.25 mg INH RQ12 [facility] Last Admin: 12/02/17 20:23 Dose: 1.25 mg Diltiazem HCl (Cardizem) 30 mg PO TID [facility] Last Admin: 12/02/17 18:35 Dose: 30 mg Docusate Sodium (Colace) 100 mg PO DAILY [facility] Last Admin: 12/02/17 09:06 Dose: 100 mg Ferrous Sulfate (Feosol) 325 mg PO DAILY [facility] Last Admin: 12/02/17 09:07 Dose: 325 mg Oxycodone/Acetaminophen (Percocet 5/325 Mg Tab) 1 tab PO Q6 PRN PRN Reason: Pain, moderate (4-7) Stop: 12/02/17 22:49 Pantoprazole Sodium (Protonix Ec Tab) 40 mg PO DAILY [facility] Last Admin: 12/02/17 09:06 Dose: 40 mg Prednisone (Prednisone Tab) 10 mg PO DAILY [facility] Last Admin: 12/02/17 09:06 Dose: 10 mg Zinc Sulfate (Zinc Sulfate 220 Mg Cap) 220 mg PO DAILY [facility] Last Admin: 12/02/17 09:06 Dose: 220 mg - Labs Labs: 12/02/17 05:56 12/02/17 05:58 PT 10.6 SECONDS (9.7-12.2) 11/29/17 15:36 INR 1.0 11/29/17 15:36 APTT 26 SECONDS (21-34) 11/29/17 15:36 - Constitutional Appears: Chronically Ill - Head Exam Head Exam: NORMOCEPHALIC - Eye Exam Eye Exam: Normal appearance - ENT Exam ENT Exam: Normal Exam - Neck Exam Neck Exam: Normal Inspection - Respiratory Exam Respiratory Exam: Decreased Breath Sounds - Cardiovascular Exam Cardiovascular Exam: Irregular Rhythm - GI/Abdominal Exam GI & Abdominal Exam: Normal Bowel Sounds - Rectal Exam Rectal Exam: Deferred - Exam Exam: NORMAL INSPECTION - Extremities Exam Extremities Exam: Tenderness - Back Exam Back Exam: NORMAL INSPECTION - Neurological Exam Neurological Exam: Oriented x3 - Psychiatric Exam Psychiatric exam: Depressed - Skin Skin Exam: Dry Assessment and Plan (1) Metastatic carcinoma to liver Status: Acute (2) Epistaxis Status: Acute (3) Renal failure Status: Acute (4) ASHD (arteriosclerotic heart disease) Status: Acute (5) Atrial fibrillation Status: Acute (6) Degenerative joint disease Status: Acute
[2017-12-03] MEDS: Albuterol 0.083% Inhal Sol (2.5 mg/3 mL) UD INH SCH ×2 (07:52→19:16)
[2017-12-03] MEDS: Pantoprazole 40 mg EC Tab PO SCH (10:23)
--- NOTE | 2017-12-03 10:42 | CP.PCM.PN ---
Subjective - Date & Time of Evaluation Date of Evaluation: 12/03/17 Time of Evaluation: 10:38 - Subjective Subjective: Receiving 2 units prbcs now with HD On dialysis - to UF 2500ml In A fib- VR 120s awake- same mental status no overt epistaxis now Objective - Vital Signs/Intake and Output Vital Signs (last 24 hours): Temp Pulse Resp BP Pulse Ox 98 F 120 H 19 135/72 96 12/03/17 10:07 12/03/17 10:07 12/03/17 10:07 12/03/17 10:07 12/03/17 00:14 Intake and Output: 12/03/17 12/03/17 06:59 18:59 Intake Total 150 20 Balance 150 20 - Medications Medications: Current Medications Albuterol Sulfate (Albuterol 0.083% Inhal Ingris (2.5 Mg/3 Ml) Ud) 1.25 mg INH RQ12 [facility] Last Admin: 12/03/17 07:52 Dose: 1.25 mg Diltiazem HCl (Cardizem) 30 mg PO TID [facility] Last Admin: 12/03/17 10:22 Dose: Not Given Docusate Sodium (Colace) 100 mg PO DAILY [facility] Last Admin: 12/03/17 10:23 Dose: Not Given Ferrous Sulfate (Feosol) 325 mg PO DAILY [facility] Last Admin: 12/03/17 10:23 Dose: Not Given Pantoprazole Sodium (Protonix Ec Tab) 40 mg PO DAILY [facility] Last Admin: 12/03/17 10:23 Dose: Not Given Prednisone (Prednisone Tab) 10 mg PO DAILY [facility] Last Admin: 12/03/17 10:23 Dose: Not Given Zinc Sulfate (Zinc Sulfate 220 Mg Cap) 220 mg PO DAILY [facility] Last Admin: 12/03/17 10:23 Dose: Not Given - Labs Labs: 12/02/17 05:56 12/02/17 05:58 PT 10.6 SECONDS (9.7-12.2) 11/29/17 15:36 INR 1.0 11/29/17 15:36 APTT 26 SECONDS (21-34) 11/29/17 15:36 - Constitutional Appears: No Acute Distress, Chronically Ill - Head Exam Head Exam: ATRAUMATIC, NORMAL INSPECTION - Eye Exam Eye Exam: EOMI, Normal appearance - Neck Exam Neck Exam: Normal Inspection. absent: Tenderness - Respiratory Exam Respiratory Exam: Clear to Ausculation Bilateral, NORMAL BREATHING PATTERN - Cardiovascular Exam Cardiovascular Exam: Tachycardia, Irregular Rhythm - GI/Abdominal Exam GI & Abdominal Exam: Soft. absent: Tenderness - Extremities Exam Extremities Exam: Normal Inspection. absent: Tenderness - Neurological Exam Neurological Exam: Awake, CN II-XII Intact - Skin Skin Exam: Dry, Warm Assessment and Plan (1) ESRD (end stage renal disease) Status: Acute (2) Epistaxis Status: Acute (3) Metastatic carcinoma to liver Status: Acute - Assessment and Plan (Free Text) Plan: increase diltiazem dose blood transfusion 2 units prbcs now UF 2500ml with HD
--- NOTE | 2017-12-03 13:11 | PN ---
DATE: LOCATION: 364, bed A. SUBJECTIVE: This is an 82-year-old male seen out of the Intensive Care Unit, in a status of DNR and DNI, appeared to be somewhat awake at times but periods of disorientation on and off. The entire chart is reviewed including but not limited to the most recent lab and radiology study results, current and the previous medication list, current and the previous medical events, and today's lab is pending, but yesterday hemoglobin dropped to 6.5 with hematocrit 19.3, with today's results is still pending. His CEA level was reported to be 126 before. The patient still has periods of melena, results of occult blood is still pending. PHYSICAL EXAMINATION GENERAL: An 82-year-old male. VITAL SIGNS: Afebrile with pulse of 106, respiratory rate 20 to 22, blood pressure 136/74. HEENT: Showed pale, dry oral mucous membrane. Nonicteric sclerae. LUNGS: Few scattered crepitation. Decreased air entry at bases. HEART: Positive S1 and S2. ABDOMEN: Soft. Bowel sounds are present. No mass or organomegaly. No rebound tenderness or guarding. EXTREMITIES: Lower extremity with edematous changes. No clubbing or cyanosis. NEUROLOGIC: No reported new neurological deficits, sensory or motor. IMPRESSION: 1. Epistaxis. 2. Severe anemia with possible gastrointestinal blood loss, upper versus lower. 3. Known history of atrial fibrillation, atherosclerotic heart disease, with degenerative joint disease. 4. Possible metastatic lesion to the liver with abnormal CAT scan of the abdomen and pelvis. 5. Bladder tumor mass with bilateral uropathy. 6. Recently diagnosed multifocal pneumonia with persistent bilateral pleural effusion. SUGGESTION: 1. Agree with your plan. 2. Correct any underlying electrolyte imbalance. 3. Blood transfusion. 4. Peripheral hyperalimentation. 5. The patient for potential upper endoscopy if he is stable clinically to rule out possible upper GI blood loss; otherwise, close observation to follow. Hossein Mora MD
--- NOTE | 2017-12-03 14:16 | CP.PCM.CON ---
History of Present Illness - History of Present Illness History of Present Illness: 82 yo male hospitalized for an epistaxis, severe anemia. 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 He is Dilatiazem 60 mg PO q 6h. A CT scan of the chest reveals a RUL consolidation. Patient received PRC transfusions and hemodialysis. Review of Systems - EENT Nose/Mouth/Throat: Epistaxis - Cardiovascular Cardiovascular: Irregular Heart Rhythm, Rapid Heart Rate Past Patient History - Tetanus Immunizations Tetanus Immunization: Up to Date - Past Medical History & Family History Past Medical History?: Yes - Past Social History Smoking Status: Never Smoked - CARDIAC Hx Cardiac Disorders: Yes (A FIB, CARDIAC ARRHYTMIA) Hx Hypercholesterolemia: Yes Hx Hypertension: Yes - PULMONARY Hx Asthma: Yes - NEUROLOGICAL Hx Neurological Disorder: No - HEENT Hx HEENT Problems: Yes Hx Cataracts: Yes Hx Epistaxis: Yes Hx Sinusitis: Yes - RENAL Hx Chronic Kidney Disease: Yes Hx Dialysis: Yes Type of Dialysis Access: right arm avs Date of Last Dialysis Treatment: 11/29/17 Hx Renal Failure: Yes - ENDOCRINE/METABOLIC Hx Endocrine Disorders: No - HEMATOLOGICAL/ONCOLOGICAL Hx Blood Disorders: No Hx Anemia: Yes Hx Cancer: Yes (HX:BLADDER CANCER) - INTEGUMENTARY Hx Dermatological Problems: No Other/Comment: moisture associate derm sacrum/buttocks - MUSCULOSKELETAL/RHEUMATOLOGICAL Hx Arthritis: Yes - GASTROINTESTINAL Hx Gastrointestinal Disorders: Yes Hx Gastroesophageal Reflux: Yes Other/Comment: MULTIPLE LESIONS LIVER - GENITOURINARY/GYNECOLOGICAL Hx Genitourinary Disorders: Yes Hx Prostate Cancer: Yes Other/Comment: HX: BLADDER CANCER - PSYCHIATRIC Hx Substance Use: No - SURGICAL HISTORY Hx Surgeries: Yes Hx Arteriovenous Shunt: Yes Hx Cataract Extraction: Yes (BILATERAL IOL) Hx Herniorrhaphy: Yes Hx Vascular Access Device: Yes Other/Comment: HX:CYSTOSCOPY. HX: INSERTION PERMACATH RIGHT FEMORAL(05/04/17). HX: LIVER BIOPSY - ANESTHESIA Hx Anesthesia: Yes Hx Anesthesia Reactions: No Hx Malignant Hyperthermia: No Has any member of the family had a problem w/ anesthesia?: No Meds Allergies/Adverse Reactions: Allergies Allergy/AdvReac Type Severity Reaction Status Date / Time No Known Allergies Allergy Verified 11/29/17 15:04 - Medications Medications: Current Medications Albuterol Sulfate (Albuterol 0.083% Inhal Ingris (2.5 Mg/3 Ml) Ud) 1.25 mg INH RQ12 [facility] Last Admin: 12/03/17 07:52 Dose: 1.25 mg Diltiazem HCl (Cardizem) 60 mg PO TID [facility] Last Admin: 12/03/17 14:12 Dose: 60 mg Docusate Sodium (Colace) 100 mg PO DAILY [facility] Last Admin: 12/03/17 10:23 Dose: Not Given Ferrous Sulfate (Feosol) 325 mg PO DAILY [facility] Last Admin: 12/03/17 10:23 Dose: Not Given Pantoprazole Sodium (Protonix Ec Tab) 40 mg PO DAILY [facility] Last Admin: 12/03/17 10:23 Dose: Not Given Prednisone (Prednisone Tab) 10 mg PO DAILY [facility] Last Admin: 12/03/17 10:23 Dose: Not Given Zinc Sulfate (Zinc Sulfate 220 Mg Cap) 220 mg PO DAILY [facility] Last Admin: 12/03/17 10:23 Dose: Not Given Physical Exam - Constitutional Appears: No Acute Distress, Chronically Ill - Head Exam Head Exam: NORMAL INSPECTION - Eye Exam Eye Exam: Normal appearance - ENT Exam ENT Exam: Normal Exam - Neck Exam Neck exam: Positive for: Normal Inspection - Respiratory Exam Respiratory Exam: Rhonchi Additional comments: Rhonchi heard bilaterally. - Cardiovascular Exam Cardiovascular Exam: Tachycardia, Irregular Rhythm - GI/Abdominal Exam GI & Abdominal Exam: Normal Bowel Sounds, Soft - Rectal Exam Rectal Exam: Deferred - Extremities Exam Extremities exam: Positive for: pedal edema - Back Exam Back exam: NORMAL INSPECTION - Neurological Exam Neurological exam: Alert - Psychiatric Exam Psychiatric exam: Anxious - Skin Skin Exam: Dry, Intact, Normal Color, Warm Results - Vital Signs Recent Vital Signs: Last Vital Signs Temp 97.9 F 12/03/17 13:00 Pulse 118 H 12/03/17 13:00 Resp 17 12/03/17 12:53 BP 140/88 12/03/17 13:00 Pulse Ox 98 12/03/17 09:30 - Labs Result Diagrams: 12/02/17 05:56 12/02/17 05:58 Labs: Laboratory Results - last 24 hr 12/02/17 12/02/17 09:32 18:30 Puncture Site Rradial pCO2 37 pO2 62 L HCO3 26.2 ABG pH 7.45 ABG Total CO2 26.8 ABG O2 Saturation 94.6 L ABG Base Excess 1.7 ABG Hemoglobin 8.5 L ABG Carboxyhemoglobin 1.5 POC ABG HHb (Measured) 5.3 H ABG Methemoglobin 0.8 Arturo Test Pos A-a O2 Difference 91.0 Respiratory Index 1.5 Hgb O2 Saturation 92.4 L Liter Flow 2.0 FiO2 28.0 Blood Type B POSITIVE Antibody Screen Negative Assessment & Plan (1) Atrial fibrillation with rapid ventricular response Assessment and Plan: Extra dose of Diltiazem 60 mg PO . Oder an echocardiogram to assess LV function. Status: Acute (2) Epistaxis Status: Acute (3) ESRD (end stage renal disease) Status: Acute (4) Severe anemia Status: Acute
--- NOTE | 2017-12-03 19:04 | CP.PCM.PN ---
Subjective - Date & Time of Evaluation Date of Evaluation: 12/03/17 Time of Evaluation: 16:10 - Subjective Subjective: Patient [facility]. Mr Moshe had dialysis today. He was also tranfused two units of packed cells. Patient denies any pain or discomfort. Repeat lab studies requested in AM. Objective - Vital Signs/Intake and Output Vital Signs (last 24 hours): Temp Pulse Resp BP Pulse Ox 98.3 F 120 H 20 145/79 100 12/03/17 16:00 12/03/17 16:00 12/03/17 16:00 12/03/17 16:00 12/03/17 16:00 Intake and Output: 12/03/17 12/03/17 06:59 18:59 Intake Total 150 905 Balance 150 905 - Medications Medications: Current Medications Albuterol Sulfate (Albuterol 0.083% Inhal Ingris (2.5 Mg/3 Ml) Ud) 1.25 mg INH RQ12 [facility] Last Admin: 12/03/17 07:52 Dose: 1.25 mg Diltiazem HCl (Cardizem) 60 mg PO Q6 [facility] Last Admin: 12/03/17 17:53 Dose: 60 mg Docusate Sodium (Colace) 100 mg PO DAILY [facility] Last Admin: 12/03/17 10:23 Dose: Not Given Ferrous Sulfate (Feosol) 325 mg PO DAILY [facility] Last Admin: 12/03/17 10:23 Dose: Not Given Pantoprazole Sodium (Protonix Ec Tab) 40 mg PO DAILY [facility] Last Admin: 12/03/17 10:23 Dose: Not Given Prednisone (Prednisone Tab) 10 mg PO DAILY [facility] Last Admin: 12/03/17 10:23 Dose: Not Given Zinc Sulfate (Zinc Sulfate 220 Mg Cap) 220 mg PO DAILY [facility] Last Admin: 12/03/17 10:23 Dose: Not Given - Labs Labs: 12/02/17 05:56 12/02/17 05:58 PT 10.6 SECONDS (9.7-12.2) 11/29/17 15:36 INR 1.0 11/29/17 15:36 APTT 26 SECONDS (21-34) 11/29/17 15:36 - Constitutional Appears: Chronically Ill - Head Exam Head Exam: NORMOCEPHALIC - Eye Exam Eye Exam: Normal appearance Pupil Exam: NORMAL ACCOMODATION - ENT Exam ENT Exam: Normal Exam - Neck Exam Neck Exam: Normal Inspection - Respiratory Exam Respiratory Exam: Decreased Breath Sounds - Cardiovascular Exam Cardiovascular Exam: Irregular Rhythm - GI/Abdominal Exam GI & Abdominal Exam: Normal Bowel Sounds - Rectal Exam Rectal Exam: Deferred - Exam Exam: NORMAL INSPECTION - Extremities Exam Extremities Exam: Tenderness - Back Exam Back Exam: NORMAL INSPECTION - Neurological Exam Neurological Exam: Awake - Psychiatric Exam Psychiatric exam: Anxious - Skin Skin Exam: Dry Assessment and Plan (1) Metastatic carcinoma to liver Status: Resolved (2) Epistaxis Status: Acute (3) Renal failure Status: Acute (4) ASHD (arteriosclerotic heart disease) Status: Acute (5) Atrial fibrillation Status: Acute (6) Degenerative joint disease Status: Acute (7) Severe anemia Status: Acute
[2017-12-04] MEDS: Albuterol 0.083% Inhal Sol (2.5 mg/3 mL) UD INH SCH ×2 (07:42→19:40)
[2017-12-04 09:22] LABS: BASO % 0.1 % (0.0-2.0); EOS # 0.1 K/uL (0.0-0.7); EOS % 1.5 % (0.0-4.0); LYMPH # 0.5 K/uL (1.0-4.3); LYMPH % 5.4 % (20.0-40.0); MEAN CORPUSCULAR HEMOGLOBIN 33.2 pg (27.0-31.0); MEAN CORPUSCULAR HGB CONC 34.2 g/dL (33.0-37.0); MEAN PLATELET VOLUME 7.8 fL (7.2-11.7); MONO # 1.1 K/uL (0.0-0.8); MONO % 11.6 % (0.0-10.0); NEUT # 7.9 K/uL (1.8-7.0); NEUT % 81.4 % (50.0-75.0); NRBC % 0.1 % (0.0-2.0); RBC 3.17 Mil/uL (4.40-5.90); RED CELL DISTRIBUTION WIDTH 19.8 % (11.5-14.5); WHITE BLOOD COUNT 9.7 K/uL (4.8-10.8)
[2017-12-04 09:23] LABS: HEMOGLOBIN 10.5 g/dL (12.0-18.0); MEAN CELL VOLUME 97.1 fL (80.0-94.0); PLATELET COUNT 103 K/uL (130-400)
[2017-12-04] MEDS: Pantoprazole 40 mg EC Tab PO SCH (10:08)
[2017-12-04 10:15] LABS: EOSINOPHIL 1 % (0-4); LYMPHOCYTE 8 % (20-40); MONOCYTE 13 % (0-10); NEUTROPHIL 78 % (50-75); TOTAL CELLS COUNTED 100
[2017-12-04 10:16] LABS: ANISOCYTOSIS MODERATE; BURR CELLS SLIGHT; MICROCYTOSIS SLIGHT; OVALOCYTES SLIGHT; PLATELET ESTIMATE DECREASED (NORMAL); POIKILOCYTOSIS SLIGHT
[2017-12-04 10:17] LABS: TEARDROP CELLS SLIGHT
[2017-12-04 10:19] LABS: LARGE PLATELETS PRESENT
--- NOTE | 2017-12-04 14:01 | PN ---
DATE: LOCATION: 364, bed A. SUBJECTIVE: This is an 82-year-old male in a state DNR and DNI, seen and examined in rounds without significant clinical changes, post blood transfusion and hemodialysis, appeared to be somewhat more awake and alert. The patient still has mild intermittent period of complaint of generalized weakness and malaise, but no reported actual complaint of chest pain, palpitation or significant shortness of breath. The patient is seen by Dr. Newby, Cardiology evaluation is noted and appreciated. As per records, there is no evidence of hematemesis this morning or hemoptysis. No epistaxis reported. PHYSICAL EXAMINATION GENERAL: An 82-year-old male. VITAL SIGNS: Afebrile with heart rate of 100, respiratory rate 20-22, blood pressure 136/70. HEENT: Show pale dry oral mucous membrane. Nonicteric sclerae. LUNGS: Few scattered crepitation. Decreased air entry at bases. HEART: Positive S1 and S2 with increased rate. ABDOMEN: Soft. Bowel sounds are present with mild generalized tenderness. No mass or organomegaly. No rebound tenderness or guarding. RECTAL: The patient refused. EXTREMITIES: Positive for AV shunt with lower extremities edematous changes. No clubbing or cyanosis. NEUROLOGIC: No reported new neurological deficits, sensory or motor. IMPRESSION: 1. Epistaxis by recent history. 2. Severe anemia, the possibility of gastrointestinal blood loss, upper versus lower was raised. 3. Known history of atherosclerotic heart disease, atrial fibrillation with degenerative joint disease. 4. Abnormal CAT scan of the abdomen and pelvis with possible metastatic lesion to the liver and bladder tumor mass with bilateral uropathy. 5. Multifocal pneumonia by recent radiology study results with persistent bilateral pleural effusion. SUGGESTIONS: 1. Continue current management. 2. Repeat stool for occult blood. 3. More blood transfusion during the patient's hemodialysis, the patient has end-stage renal disease. 4. Upper endoscopy at a.m. to rule out possible upper GI blood loss. 5. Follow up in cancer markers as the patient has excessive increase of CEA to 126. Hossein Mora MD
--- NOTE | 2017-12-04 21:12 | CP.PCM.PN ---
Subjective - Date & Time of Evaluation Date of Evaluation: 12/04/17 Time of Evaluation: 16:30 - Subjective Subjective: Patient feels better. Hgb 10.5, BUN 53. He received two units of packed cells. Scheduled for dialysis in AM. Objective - Vital Signs/Intake and Output Vital Signs (last 24 hours): Temp Pulse Resp BP Pulse Ox 98.5 F 88 18 133/65 100 12/04/17 17:00 12/04/17 17:00 12/04/17 17:00 12/04/17 17:00 12/04/17 17:00 Intake and Output: 12/04/17 12/05/17 18:59 06:59 Intake Total 600 Balance 600 - Medications Medications: Current Medications Albuterol Sulfate (Albuterol 0.083% Inhal Ingris (2.5 Mg/3 Ml) Ud) 1.25 mg INH RQ12 [facility] Last Admin: 12/04/17 19:40 Dose: 1.25 mg Diltiazem HCl (Cardizem) 60 mg PO Q6 [facility] Last Admin: 12/04/17 17:37 Dose: 60 mg Docusate Sodium (Colace) 100 mg PO DAILY [facility] Last Admin: 12/04/17 10:09 Dose: 100 mg Ferrous Sulfate (Feosol) 325 mg PO DAILY [facility] Last Admin: 12/04/17 10:08 Dose: 325 mg Pantoprazole Sodium (Protonix Ec Tab) 40 mg PO DAILY [facility] Last Admin: 12/04/17 10:08 Dose: 40 mg Prednisone (Prednisone Tab) 10 mg PO DAILY [facility] Last Admin: 12/04/17 10:08 Dose: 10 mg Zinc Sulfate (Zinc Sulfate 220 Mg Cap) 220 mg PO DAILY [facility] Last Admin: 12/04/17 10:08 Dose: 220 mg - Labs Labs: 12/04/17 09:12 12/04/17 09:12 PT 10.6 SECONDS (9.7-12.2) 11/29/17 15:36 INR 1.0 11/29/17 15:36 APTT 26 SECONDS (21-34) 11/29/17 15:36 - Constitutional Appears: Chronically Ill - Head Exam Head Exam: NORMOCEPHALIC - Eye Exam Eye Exam: Normal appearance - ENT Exam ENT Exam: Normal Exam - Neck Exam Neck Exam: Normal Inspection - Respiratory Exam Respiratory Exam: Decreased Breath Sounds - Cardiovascular Exam Cardiovascular Exam: Irregular Rhythm - GI/Abdominal Exam GI & Abdominal Exam: Normal Bowel Sounds - Rectal Exam Rectal Exam: Deferred - Exam Exam: NORMAL INSPECTION - Extremities Exam Extremities Exam: Tenderness - Back Exam Back Exam: NORMAL INSPECTION - Neurological Exam Neurological Exam: Alert - Psychiatric Exam Psychiatric exam: Depressed - Skin Skin Exam: Dry Assessment and Plan (1) Metastatic carcinoma to liver Status: Resolved (2) Epistaxis Status: Acute (3) Renal failure Status: Acute (4) ASHD (arteriosclerotic heart disease) Status: Acute (5) Atrial fibrillation Status: Acute (6) Degenerative joint disease Status: Acute (7) Severe anemia Status: Acute
--- NOTE | 2017-12-05 09:22 | PN ---
DATE: SUBJECTIVE: Patient is alert, in bed, but seems confused today. He is not in distress at rest. PHYSICAL EXAMINATION VITAL SIGNS: He is afebrile. Blood pressure 126/86, pulse rate 120, respirations 17, hemoglobin oxygen saturation of 100%. HEART: Irregular. There is no gallop rhythm. He is on medication for irregular heart beat and fibrillation. LUNGS: Revealed diminished breath sounds over the lung bases. Rhonchi decreased. ABDOMEN: Soft. EXTREMITIES: Legs, minimal swelling of the ankles. LABORATORY DATA: White count is 6500, hemoglobin6.5, platelet count 131,000. His ABG on FiO2 of 28% shows pH of 7.45, pCO2 of 37, and pO2 of 62 with hemoglobin oxygen saturation of 95%. IMPRESSION: Respiratory insufficiency, hypertension, congestive heart failure, atrial fibrillation, anemia, prostate cancer, urinary bladder cancer and he was seen by light rail train operator/oncologist. He also has chronic renal failure and is on dialysis treatment. PLAN: Continue with the current medication and follow up with Hematology/Oncology and renal specialist. Discussed with PMD. Recommend increased amount of fluid removal through dialysis. Discussed with the patient's nurse also. Gregorio Jones MD
--- NOTE | 2017-12-05 09:27 | CON ---
DATE: 12/02/[address] Mora [address] Dr[address] Jason. HISTORY OF PRESENT ILLNESS: I was called for GI consultation by the admitting MD. The patient is seen and fully examined on 12/02/2017. Also, available lab and radiology study results, current and previous medication lists, current and previous medical events, allergy to medication list as well as all the available current and previous medical records were reviewed. Case discussed with staff in the intensive care unit. This is an 82-year-old male with known history of end-stage renal disease, on hemodialysis, admitted to the hospital through emergency room with episodes of epistaxis, generalized weakness and malaise. No reported rectal bleeding, but melena, which could be related to the patient's iron intake with intermittent period of abdominal pain. PAST MEDICAL HISTORY: Included but not limited to: 1. Bronchial asthma, osteoarthritis, atrial fibrillation. 2. Known history of hyperlipidemia with hypertension, osteoporosis. 3. Chronic renal failure, on hemodialysis. 4. Bladder CA as reported with possible mets. 5. Patient denied any chest pain or significant shortness of breath. No hemoptysis. No palpitation recently. FAMILY HISTORY: Unknown. SOCIAL HISTORY: No reported recent history of cigarette smoking or alcohol intake. CURRENT MEDICATIONS: Medication lists were reviewed. ALLERGIES: ALLERGIES TO MEDICATION UNKNOWN. LABORATORY DATA: Patient initially was found to have low hemoglobin and hematocrit, which subsequently dropped further more with today's hemoglobin of 6.5, hematocrit 19.3 with normal platelet count, for which blood transfusion was ordered. Also, his sodium today 131 with low chloride, increased BUN of 65, creatinine 4.9 due to his renal failure with blood glucose level of 117 with low calcium of 7.4, low total protein 4.9 and low albumin 2.6. CEA level was ordered, which showed a result of 126. Patient had chest, abdominal and pelvic CAT scan yesterday. Report is seen indicative of extensive bladder tumor with evidence of obstructive uropathy bilaterally with severe hydroureter and hydronephrosis, left side more than the right with benign hepatic cyst with multifocal upper lobe infiltrate with persistent bilateral pleural effusion. PHYSICAL EXAMINATION GENERAL: An 82-year-old male, a Marshallese spoken, examination done through a nursing fabric awning repairer, appears to be somewhat awake, alert. VITAL SIGNS: Afebrile with pulse of 102, respiratory rate 20 to 22, blood pressure of 136/70. HEENT: Showed pale, dry oral mucous membrane. Nonicteric sclerae. LUNGS: Few scattered crepitations. Decreased air entry at bases. HEART: Positive S1 and S2. ABDOMEN: Soft. Bowel sounds are present with slight distention and mild tenderness. No mass or organomegaly. No rebound tenderness or guarding. RECTAL: The patient refused. EXTREMITIES: Without significant clubbing, cyanosis or edema. NEUROLOGIC: No reported new neurological deficits, sensory or motor. IMPRESSION: 1. Anemia, the possibility of gastrointestinal blood loss was raised, upper versus lower. 2. Rule out occult gastrointestinal malignancy especially with his anemia and elevated CEA level to 126 that could be primary versus secondary. 3. Multiple past medical history including, but not limited to urinary bladder tumor, chronic renal failure with bilateral hydroureter and hydronephrosis, atrial fibrillation, hypertension, osteoporosis with hyperlipidemia and osteoarthritis especially in both knees. 4. Electrolyte imbalance secondary to above. SUGGESTIONS: 1. Agree with your plan. 2. Alpha-fetoprotein with CA19-9. 3. Guaiac of stool daily x3. 4. Protonix IV. 5. Upper endoscopy once the patient is more stable clinically and after blood transfusion during his hemodialysis. 6. Further recommendation to follow. 7. It is not clear if the patient had colonoscopy before or not, otherwise colonoscopy to be scheduled and to be discussed at length with Dr. Jason. Hossein Mora MD
[2017-12-05] MEDS: Pantoprazole 40 mg EC Tab PO SCH (12:04)
--- NOTE | 2017-12-05 12:10 | CP.PCM.PN ---
Subjective - Date & Time of Evaluation Date of Evaluation: 12/05/17 Time of Evaluation: 12:08 - Subjective Subjective: Alert NPO for EGD today s/p blood transfusion 2 units- Hg improved not dyspeic; only c/o being NPO Objective - Vital Signs/Intake and Output Vital Signs (last 24 hours): Temp Pulse Resp BP Pulse Ox 98.2 F 86 20 138/71 96 12/05/17 08:47 12/05/17 08:47 12/05/17 08:47 12/05/17 08:47 12/05/17 08:47 Intake and Output: 12/05/17 12/05/17 06:59 18:59 Intake Total 350 Balance 350 - Medications Medications: Current Medications Albuterol Sulfate (Albuterol 0.083% Inhal Ingris (2.5 Mg/3 Ml) Ud) 1.25 mg INH RQ12 [facility] Last Admin: 12/04/17 19:40 Dose: 1.25 mg Diltiazem HCl (Cardizem) 60 mg PO Q6 [facility] Last Admin: 12/05/17 12:04 Dose: Not Given Docusate Sodium (Colace) 100 mg PO DAILY [facility] Last Admin: 12/05/17 12:04 Dose: Not Given Ferrous Sulfate (Feosol) 325 mg PO DAILY [facility] Last Admin: 12/05/17 12:04 Dose: Not Given Pantoprazole Sodium (Protonix Ec Tab) 40 mg PO DAILY [facility] Last Admin: 12/05/17 12:04 Dose: Not Given Prednisone (Prednisone Tab) 10 mg PO DAILY [facility] Last Admin: 12/05/17 12:04 Dose: Not Given Zinc Sulfate (Zinc Sulfate 220 Mg Cap) 220 mg PO DAILY [facility] Last Admin: 12/05/17 12:05 Dose: Not Given - Labs Labs: 12/04/17 09:12 12/04/17 09:12 PT 10.6 SECONDS (9.7-12.2) 11/29/17 15:36 INR 1.0 11/29/17 15:36 APTT 26 SECONDS (21-34) 11/29/17 15:36 - Constitutional Appears: No Acute Distress, Chronically Ill - Head Exam Head Exam: ATRAUMATIC, NORMAL INSPECTION - Eye Exam Eye Exam: EOMI, Normal appearance - Neck Exam Neck Exam: Normal Inspection. absent: Tenderness - Respiratory Exam Respiratory Exam: Clear to Ausculation Bilateral, NORMAL BREATHING PATTERN - Cardiovascular Exam Cardiovascular Exam: REGULAR RHYTHM, +S1 - GI/Abdominal Exam GI & Abdominal Exam: Tenderness. absent: Soft - Extremities Exam Extremities Exam: Normal Inspection. absent: Tenderness - Neurological Exam Neurological Exam: Awake, CN II-XII Intact - Skin Skin Exam: Dry, Warm Assessment and Plan (1) ESRD (end stage renal disease) Status: Acute (2) Epistaxis Status: Acute (3) Metastatic carcinoma to liver Status: Resolved - Assessment and Plan (Free Text) Plan: Dialysis TTS check iron stores- will hold ESAs due to h/o CA
[2017-12-05] MEDS ORDERED: Propofol 10 mg/ml Inj (20 ML) ONE (13:44)
--- NOTE | 2017-12-05 14:21 | CON ---
DATE: HISTORY OF PRESENT ILLNESS: This 82-year-old male was admitted from long-term with a history of longstanding ESRD with chronic renal failure, on hemodialysis therapy; history of hypertension; atrial fibrillation; asthma; bronchitis; hyperlipidemia; osteoporosis and OVS. He was admitted on this admission because of epistaxis and altered mental status with confused states and headache. There was no chest pain. There was no vomiting, no hemoptysis. Epistaxis was mild and INR was within normal limits on admission. The patient has had limited mobility. There was no history of fall. SOCIAL HISTORY: The patient is a nonsmoker, does not consume alcohol. ALLERGIES: THERE IS NO REPORTED HISTORY OF ALLERGIES. PAST MEDICAL HISTORY: As stated above includes end-stage renal disease with chronic renal failure, on hemodialysis therapy; atrial fibrillation; hypertension; hyperlipidemia; asthma; bronchitis; osteoporosis; and dyspepsia. FAMILY HISTORY: Nothing remarkable reported. REVIEW OF SYSTEMS: Systemic as reported above. There was history of confusion and headache. Cardiovascular: There was no chest pain or leg pain. Respiratory: There was mild breathing difficulty, but there was no significant respiratory distress. Gastrointestinal: Appetite was reported to be poor. Renal: As reported above, patient is on therapy for chronic renal disease. Musculoskeletal: General weakness with diminished mobility. Central nervous system: As reported above, confusion and headache. significant, reported. PHYSICAL EXAMINATION: GENERAL: Revealed the patient to be awake and alert now, not in distress. VITAL SIGNS: He is afebrile with blood pressure 126/72, pulse 120, respirations 20. NECK: Supple. HEENT: Unremarkable. There is no lymphadenopathy detected. HEART: Regular. There is no gallop rhythm. LUNGS: Diminished breath sounds over the lung bases with occasional rhonchi. ABDOMEN: Soft. EXTREMITIES: Legs, minimal SOA. LABORATORY DATA: His white count is 6,500, hemoglobin is 6.5, platelet count 121,000, neutrophils 82%. INR 1. Serum sodium 131; potassium 4.7; chloride 95; BUN was high on admission, quite high in the range of 167, yesterday it was 116 and today it is 65 while the patient is on dialysis; creatinine is 4.9, which is decreasing since admission; glucose is 117; total protein 4.9 with albumin of 2.6, which is low. CEA is high at 126, patient is being seen by Chef'S Assistant. The patient's chest x-ray shows general haziness in the lung gu with some areas of varying fluffiness bilaterally and over the bases, more so on the left than on the right side. Chest; congestive changes, requiring removal of more fluid through dialysis. Culture studies show that MRSA was not detected. IMPRESSION: Respiratory insufficiency; bronchitis; pulmonary congestive changes; congestive heart failure; atrial fibrillation; hypertension; and end-stage renal disease, patient on dialysis. PLAN: Continue with the current measures, renal followup, continue with dialysis, recommend removal of more fluids as guided by patient's blood pressure, patient has increased pulmonary congestive changes requiring removal of more fluids, continue with GI followup and hem-onc followup. Oxygen therapy to maintain O2 saturation over 92%. In view of atrial fibrillation, we will give only small dose of bronchodilators to control dyspnea. To continue with sequential compressive devices and venous thromboembolic prophylaxis. Gregorio Jones MD
[2017-12-05] MEDS: Albuterol 0.083% Inhal Sol (2.5 mg/3 mL) UD INH SCH (20:12)
--- NOTE | 2017-12-05 22:14 | CARD ---
APPROVED REPORT EXAM: Two-dimensional and M-mode echocardiogram with Doppler and color Doppler. Other Information Quality : GoodRhythm : Atrial Fibrillation INDICATION Congestive Heart Failure Palpitations ESRD/ Prostate CA 2D DIMENSIONS IVSd1.2 (0.7-1.1cm)LVDd4.2 (3.9-5.9cm) LVOT Diameter2.2 (1.8-2.4cm)PWd1.2 (0.7-1.1cm) LVDs2.9 (2.5-4.0cm)LVEF (%)65.0 (>50%) M-Mode DIMENSIONS Left Atrium (MM)4.29 (2.5-4.0cm)Aortic Root3.54 (2.2-3.7cm) Aortic Cusp Exc.1.31 (1.5-2.0cm) Aortic Valve AoV Peak Epdyfjmn221.8cm/sAoV VTI39.8cmAO Peak GR.24mmHg LVOT Peak Sddwbyvo942.1cm/sLVOT VTI18.75cmAO Mean GR.12mmHg [place] (VMAX)1.74ic1KBE (VTI)1.73cm2 Mitral Valve MV E Ketrztnp253.1cm/sMV A Jaxolyve17.1cm/sE/A ratio3.5 TDI E/Lateral E'0.0E/Medial E'0.0 Tricuspid Valve TR Peak Mqqnjuzy448ig/sTR Peak Gr.66jySnARPS24vaTm LEFT VENTRICLE There is mild concentric left ventricular hypertrophy. Left ventricle systolic function is normal. The Ejection Fraction is 60-65%. There is normal LV segmental wall motion. The left ventricular diastolic function is normal. No left ventricle thrombus noted on this study. There is no ventricular septal defect visualized. RIGHT VENTRICLE The right ventricle is normal size. The right ventricular systolic function is normal. ATRIA The left atrium is moderately dilated. The right atrium is moderately dilated. AORTIC VALVE The aortic valve is moderately to severely thickened and calcified. The aortic valve is trileaflet. There is mild to moderate aortic regurgitation. There is mild valvular aortic stenosis. Calculated aortic valve area is 1.7 cm2 with maximum pressure gradient of 24 mmHg and mean pressure gradient of 12 mmHg. There is no aortic valvular vegetation. MITRAL VALVE Mitral annular calcification is moderate. The mitral valve leaflets are thickened and calcified. There is no evidence of mitral valve prolapse. There is no mitral valve stenosis. Mitral regurgitation is mild to moderate. TRICUSPID VALVE The tricuspid valve is normal in structure. There is severe tricuspid regurgitation. Right ventricular systolic pressure is estimated at greater than 60 mmHg. There is moderate-severe pulmonary hypertension. There is no tricuspid valve prolapse or vegetation. There is no tricuspid valve stenosis. PULMONIC VALVE The pulmonary valve is normal in structure. There is mild to moderate pulmonic valvular regurgitation. GREAT VESSELS The aortic root is normal in size. The IVC is normal in size and collapses >50% with inspiration. PERICARDIAL EFFUSION There is no pericardial effusion. There is no pleural effusion. <Conclusion> There is mild concentric left ventricular hypertrophy. Left ventricle systolic function is normal. The Ejection Fraction is 60-65%. The left ventricular diastolic function is normal. The right ventricle is normal size. The right ventricular size and systolic function are normal. The left and right atrium are moderately dilated. The right ventricle is normal size. The right ventricular systolic function is normal. There is mild to moderate aortic regurgitation. There is mild valvular aortic stenosis. Calculated aortic valve area is 1.7 cm2 with maximum pressure gradient of 24 mmHg and mean pressure gradient of 12 mmHg. There is mild to moderate aortic regurgitation. There is severe tricuspid regurgitation. There is moderate-severe pulmonary hypertension. There is mild to moderate pulmonic valvular regurgitation.
--- NOTE | 2017-12-05 22:38 | CP.PCM.PN ---
Subjective - Date & Time of Evaluation Date of Evaluation: 12/05/17 Time of Evaluation: 17:45 - Subjective Subjective: EGD today reveals esophagitis and gastritis, and no active bleeding, no mass. Otherwise, the patient is alert, in no respiratory distress. Heart rate in the range of 88 bpm to 105 bpm. BP is normal. Echocardiogram reveals a normal LV systolic function, mild MR, TR with mild left atrial enlargement, and a moderate pulmonary hypertension. Objective - Vital Signs/Intake and Output Vital Signs (last 24 hours): Temp Pulse Resp BP Pulse Ox 97.4 F L 106 H 20 161/68 H 93 L 12/05/17 17:47 12/05/17 17:47 12/05/17 17:47 12/05/17 17:47 12/05/17 17:47 Intake and Output: 12/05/17 12/06/17 18:59 06:59 Intake Total 250 200 Balance 250 200 - Medications Medications: Current Medications Albuterol Sulfate (Albuterol 0.083% Inhal Ingris (2.5 Mg/3 Ml) Ud) 1.25 mg INH RQ12 [facility] Last Admin: 12/05/17 20:12 Dose: 1.25 mg Diltiazem HCl (Cardizem Cd) 240 mg PO DAILY [facility] Docusate Sodium (Colace) 100 mg PO DAILY [facility] Last Admin: 12/05/17 12:04 Dose: Not Given Fluconazole (Diflucan) 100 mg PO DAILY [facility] Last Admin: 12/05/17 14:56 Dose: 100 mg Pantoprazole Sodium (Protonix Ec Tab) 40 mg PO DAILY [facility] Last Admin: 12/05/17 12:04 Dose: Not Given Prednisone (Prednisone Tab) 10 mg PO DAILY [facility] Last Admin: 12/05/17 12:04 Dose: Not Given Sennosides (Senokot Tab) 8.6 mg PO DAILY [facility] Zinc Sulfate (Zinc Sulfate 220 Mg Cap) 220 mg PO DAILY [facility] Last Admin: 12/05/17 12:05 Dose: Not Given - Labs Labs: 12/04/17 09:12 12/04/17 09:12 PT 10.6 SECONDS (9.7-12.2) 11/29/17 15:36 INR 1.0 11/29/17 15:36 APTT 26 SECONDS (21-34) 11/29/17 15:36 - Constitutional Appears: No Acute Distress, Chronically Ill - Head Exam Head Exam: NORMAL INSPECTION - Eye Exam Eye Exam: Normal appearance - ENT Exam ENT Exam: Normal Exam - Neck Exam Neck Exam: Normal Inspection - Respiratory Exam Respiratory Exam: Clear to Ausculation Bilateral - Cardiovascular Exam Cardiovascular Exam: Irregular Rhythm, Murmur - GI/Abdominal Exam GI & Abdominal Exam: Soft, Normal Bowel Sounds - Rectal Exam Rectal Exam: Deferred - Extremities Exam Additional comments: Trace edema of the lower extremities. - Back Exam Back Exam: NORMAL INSPECTION - Neurological Exam Neurological Exam: Awake, Oriented x3 - Psychiatric Exam Psychiatric exam: Anxious - Skin Skin Exam: Dry, Intact, Normal Color, Warm Assessment and Plan (1) Atrial fibrillation with rapid ventricular response Assessment & Plan: To switch to Diltiazem CD 240 mg PO qd. Status: Resolved (2) Epistaxis Status: Resolved (3) ESRD (end stage renal disease) Status: Chronic (4) Severe anemia Status: Resolved
--- NOTE | 2017-12-05 22:40 | CP.PCM.PN ---
Subjective - Date & Time of Evaluation Date of Evaluation: 12/05/17 Time of Evaluation: 15:50 - Subjective Subjective: Patient had Endoscopy. Patient evaluated by Dr Lucas. Will repeat labs in AM. Objective - Vital Signs/Intake and Output Vital Signs (last 24 hours): Temp Pulse Resp BP Pulse Ox 97.4 F L 106 H 20 161/68 H 93 L 12/05/17 17:47 12/05/17 17:47 12/05/17 17:47 12/05/17 17:47 12/05/17 17:47 Intake and Output: 12/05/17 12/06/17 18:59 06:59 Intake Total 250 200 Balance 250 200 - Medications Medications: Current Medications Albuterol Sulfate (Albuterol 0.083% Inhal Ingris (2.5 Mg/3 Ml) Ud) 1.25 mg INH RQ12 [facility] Last Admin: 12/05/17 20:12 Dose: 1.25 mg Diltiazem HCl (Cardizem Cd) 240 mg PO DAILY [facility] Docusate Sodium (Colace) 100 mg PO DAILY [facility] Last Admin: 12/05/17 12:04 Dose: Not Given Fluconazole (Diflucan) 100 mg PO DAILY [facility] Last Admin: 12/05/17 14:56 Dose: 100 mg Pantoprazole Sodium (Protonix Ec Tab) 40 mg PO DAILY [facility] Last Admin: 12/05/17 12:04 Dose: Not Given Prednisone (Prednisone Tab) 10 mg PO DAILY [facility] Last Admin: 12/05/17 12:04 Dose: Not Given Sennosides (Senokot Tab) 8.6 mg PO DAILY [facility] Zinc Sulfate (Zinc Sulfate 220 Mg Cap) 220 mg PO DAILY [facility] Last Admin: 12/05/17 12:05 Dose: Not Given - Labs Labs: 12/04/17 09:12 12/04/17 09:12 PT 10.6 SECONDS (9.7-12.2) 11/29/17 15:36 INR 1.0 11/29/17 15:36 APTT 26 SECONDS (21-34) 11/29/17 15:36 - Constitutional Appears: Chronically Ill - Head Exam Head Exam: NORMOCEPHALIC - Eye Exam Eye Exam: Normal appearance Pupil Exam: NORMAL ACCOMODATION - ENT Exam ENT Exam: Normal Exam - Neck Exam Neck Exam: Normal Inspection - Respiratory Exam Respiratory Exam: Decreased Breath Sounds - Cardiovascular Exam Cardiovascular Exam: Irregular Rhythm - GI/Abdominal Exam GI & Abdominal Exam: Normal Bowel Sounds - Rectal Exam Rectal Exam: Deferred - Exam Exam: NORMAL INSPECTION - Extremities Exam Extremities Exam: Tenderness - Back Exam Back Exam: NORMAL INSPECTION - Neurological Exam Neurological Exam: Alert - Psychiatric Exam Psychiatric exam: Depressed - Skin Skin Exam: Dry Assessment and Plan (1) Metastatic carcinoma to liver Status: Resolved (2) Epistaxis Status: Acute (3) Renal failure Status: Acute (4) ASHD (arteriosclerotic heart disease) Status: Acute (5) Atrial fibrillation Status: Acute (6) Degenerative joint disease Status: Acute (7) Severe anemia Status: Acute
[2017-12-06] MEDS: Albuterol 0.083% Inhal Sol (2.5 mg/3 mL) UD INH SCH ×2 (08:11→19:21)
[2017-12-06 08:49] LABS: BASO % 0.2 % (0.0-2.0); HEMOGLOBIN 10.7 g/dL (12.0-18.0); LYMPH # 0.1 K/uL (1.0-4.3); LYMPH % 0.7 % (20.0-40.0); MEAN CELL VOLUME 98.9 fL (80.0-94.0); MEAN CORPUSCULAR HEMOGLOBIN 32.2 pg (27.0-31.0); MEAN CORPUSCULAR HGB CONC 32.6 g/dL (33.0-37.0); MEAN PLATELET VOLUME 8.2 fL (7.2-11.7); MONO # 1.2 K/uL (0.0-0.8); MONO % 7.5 % (0.0-10.0); NEUT # 14.4 K/uL (1.8-7.0); NEUT % 91.6 % (50.0-75.0); PLATELET COUNT 163 K/uL (130-400); RBC 3.33 Mil/uL (4.40-5.90); RED CELL DISTRIBUTION WIDTH 19.7 % (11.5-14.5)
[2017-12-06 08:52] LABS: WHITE BLOOD COUNT 15.7 K/uL (4.8-10.8)
[2017-12-06 09:57] LABS: ANISOCYTOSIS SLIGHT; MONOCYTE 5 % (0-10); NEUTROPHIL 95 % (50-75); PLATELET ESTIMATE NORMAL (NORMAL); TOTAL CELLS COUNTED 100
[2017-12-06 09:58] LABS: BURR CELLS SLIGHT; OVALOCYTES SLIGHT; SCHISTOCYTES SLIGHT
[2017-12-06 09:59] LABS: HYPOCHROMIC SLIGHT; POLYCHROMIC SLIGHT
[2017-12-06] MEDS ORDERED: Epoetin Alfa 10,000 unit/ml Dialysis IV SCH (10:00)
[2017-12-06] MEDS: Pantoprazole 40 mg EC Tab PO SCH (11:02)
[2017-12-06] MEDS: diltiaZEM 240 mg/24 Hours CD Cap PO SCH (11:02)
--- NOTE | 2017-12-06 12:37 | PN ---
DATE: SUBJECTIVE: This is an 82-year-old male post upper endoscopy yesterday, seen and examined in rounds without significant clinical changes or reported active bleeding this morning. Appeared to be somewhat more awake and alert, but with a complaint of mild generalized tenderness. Most recent lab results, current and the previous medication list, current and the previous medical events were reviewed and today's labs showed white blood cells of 15.7 with low hemoglobin 10.7, hematocrit 33.0 with normal platelet count with reported sodium still low at 127 and potassium 6.3 with BUN of 97 with low albumin and low total protein before. The patient is seen by the Nephrology sql server consultant. PHYSICAL EXAMINATION: GENERAL: An 82-year-old male, seen and examined, case discussed with the staff during rounds. VITAL SIGNS: Afebrile with pulse of 92, respiratory rate 20 to 22, blood pressure 140/76. HEENT: Showed pale dry mucous membrane. Nonicteric sclerae. LUNGS: Few scattered crepitation. Decreased air entry at bases. HEART: Positive S1 and S2. ABDOMEN: Soft. Bowel sounds are present with mild slight tenderness. No mass or organomegaly. No rebound tenderness or guarding. EXTREMITIES: Without significant clubbing, cyanosis or edema. NEUROLOGIC: No reported new neurological deficits, sensory or motor. IMPRESSION: 1. Reexacerbation of peptic ulcer disease. 2. Recent history of epistaxis, subsided. 3. Anemia. 4. Renal insufficiency. 5. Known history of atrial fibrillation, atherosclerotic heart disease with degenerative joint disease. 6. Abnormal CAT scan of the abdomen and pelvis with possible metastatic lesion to the liver. 7. Bladder tumor mass with bilateral uropathy by radiology study results. 8. Multifocal pneumonia by recent radiology studies associated with persistent bilateral pleural effusion. SUGGESTION: 1. Continue current management. 2. Follow up the cancer markers. 3. The patient may need thoracocentesis. 4. The patient may need colonoscopy due to the excessive increase of CEA level. 5. Hematology/Oncology consult. 6. Further recommendation to follow and the patient have colonoscopy only if he is stable clinically and if there is significant further drop of hemoglobin and hematocrit. 7. We will discuss the case with Dr. Jason. Hossein Mora MD
--- NOTE | 2017-12-06 13:11 | CP.PCM.PN ---
Subjective - Date & Time of Evaluation Date of Evaluation: 12/06/17 Time of Evaluation: 13:09 - Subjective Subjective: seen and examinedon hd, no NRB mask sat 58% on nasal cannula pt tired, slow to answer questions. no events labs noted Objective - Vital Signs/Intake and Output Vital Signs (last 24 hours): Temp Pulse Resp BP Pulse Ox 97.7 F 99 H 18 143/78 84 L 12/06/17 08:08 12/06/17 11:00 12/06/17 08:08 12/06/17 11:00 12/06/17 11:00 Intake and Output: 12/06/17 12/06/17 06:59 18:59 Intake Total 400 Balance 400 - Medications Medications: Current Medications Albuterol Sulfate (Albuterol 0.083% Inhal Ingris (2.5 Mg/3 Ml) Ud) 1.25 mg INH RQ12 [facility] Last Admin: 12/06/17 08:11 Dose: 1.25 mg Diltiazem HCl (Cardizem Cd) 240 mg PO DAILY [facility] Last Admin: 12/06/17 11:02 Dose: 240 mg Docusate Sodium (Colace) 100 mg PO DAILY [facility] Last Admin: 12/06/17 11:02 Dose: 100 mg Fluconazole (Diflucan) 100 mg PO DAILY [facility] Last Admin: 12/06/17 11:02 Dose: 100 mg Pantoprazole Sodium (Protonix Ec Tab) 40 mg PO DAILY [facility] Last Admin: 12/06/17 11:02 Dose: 40 mg Prednisone (Prednisone Tab) 10 mg PO DAILY [facility] Last Admin: 12/06/17 11:02 Dose: 10 mg Sennosides (Senokot Tab) 8.6 mg PO DAILY [facility] Last Admin: 12/06/17 11:03 Dose: Not Given Zinc Sulfate (Zinc Sulfate 220 Mg Cap) 220 mg PO DAILY [facility] Last Admin: 12/06/17 11:02 Dose: 220 mg - Labs Labs: 12/06/17 08:42 12/06/17 08:42 PT 10.6 SECONDS (9.7-12.2) 11/29/17 15:36 INR 1.0 11/29/17 15:36 APTT 26 SECONDS (21-34) 11/29/17 15:36 - Constitutional Appears: No Acute Distress, Chronically Ill - Head Exam Head Exam: NORMAL INSPECTION - Eye Exam Eye Exam: Normal appearance, PERRL - ENT Exam ENT Exam: Mucous Membranes Moist, Normal Exam - Neck Exam Neck Exam: Normal Inspection - Respiratory Exam Respiratory Exam: Decreased Breath Sounds, NORMAL BREATHING PATTERN - Cardiovascular Exam Cardiovascular Exam: REGULAR RHYTHM, RRR - GI/Abdominal Exam GI & Abdominal Exam: Distended, Soft - Extremities Exam Extremities Exam: Pedal Edema (lue avf) - Neurological Exam Neurological Exam: Alert, Awake, Oriented x3 - Psychiatric Exam Psychiatric exam: Normal Affect, Normal Mood - Skin Skin Exam: Normal Color, Warm Assessment and Plan (1) ESRD (end stage renal disease) Status: Chronic (2) Atrial fibrillation with rapid ventricular response Status: Resolved (3) Epistaxis Status: Resolved (4) Severe anemia Status: Resolved (5) Prostate cancer Status: Acute - Assessment and Plan (Free Text) Assessment: maintain hd tts, low k diet avoid thanh metastatic ?bladder ca, on palliative chemo
--- NOTE | 2017-12-06 14:24 | CP.PCM.PN ---
Subjective - Date & Time of Evaluation Date of Evaluation: 12/06/17 Time of Evaluation: 14:21 - Subjective Subjective: Patient examined during hemodialysis. Appears to be in no respiratory distress. Objective - Vital Signs/Intake and Output Vital Signs (last 24 hours): Temp Pulse Resp BP Pulse Ox 97.6 F 90 18 136/80 99 12/06/17 13:25 12/06/17 13:25 12/06/17 13:25 12/06/17 13:55 12/06/17 13:25 Intake and Output: 12/06/17 12/06/17 06:59 18:59 Intake Total 400 Balance 400 - Medications Medications: Current Medications Albuterol Sulfate (Albuterol 0.083% Inhal Ingris (2.5 Mg/3 Ml) Ud) 1.25 mg INH RQ12 [facility] Last Admin: 12/06/17 08:11 Dose: 1.25 mg Diltiazem HCl (Cardizem Cd) 240 mg PO DAILY [facility] Last Admin: 12/06/17 11:02 Dose: 240 mg Docusate Sodium (Colace) 100 mg PO DAILY [facility] Last Admin: 12/06/17 11:02 Dose: 100 mg Fluconazole (Diflucan) 100 mg PO DAILY [facility] Last Admin: 12/06/17 11:02 Dose: 100 mg Pantoprazole Sodium (Protonix Ec Tab) 40 mg PO DAILY [facility] Last Admin: 12/06/17 11:02 Dose: 40 mg Prednisone (Prednisone Tab) 10 mg PO DAILY [facility] Last Admin: 12/06/17 11:02 Dose: 10 mg Sennosides (Senokot Tab) 8.6 mg PO DAILY [facility] Last Admin: 12/06/17 11:03 Dose: Not Given Zinc Sulfate (Zinc Sulfate 220 Mg Cap) 220 mg PO DAILY [facility] Last Admin: 12/06/17 11:02 Dose: 220 mg - Labs Labs: 12/06/17 08:42 12/06/17 08:42 PT 10.6 SECONDS (9.7-12.2) 11/29/17 15:36 INR 1.0 11/29/17 15:36 APTT 26 SECONDS (21-34) 11/29/17 15:36 - Constitutional Appears: No Acute Distress, Confused, Chronically Ill - Head Exam Head Exam: NORMAL INSPECTION - Eye Exam Eye Exam: Normal appearance - ENT Exam ENT Exam: Normal Exam - Respiratory Exam Respiratory Exam: Rhonchi Additional comments: Rhonchi and wheezes heard at the right upper chest. To recheck CXR for the RUL infiltratess. - GI/Abdominal Exam GI & Abdominal Exam: Soft, Normal Bowel Sounds - Rectal Exam Rectal Exam: Deferred - Back Exam Back Exam: NORMAL INSPECTION - Neurological Exam Neurological Exam: Awake - Psychiatric Exam Psychiatric exam: Anxious - Skin Skin Exam: Dry, Intact Additional comments: Hyperpigmented both lower legs. Assessment and Plan (1) Atrial fibrillation with rapid ventricular response Status: Resolved (2) Epistaxis Status: Resolved (3) ESRD (end stage renal disease) Status: Chronic (4) Severe anemia Status: Resolved (5) Right upper lobe consolidation Assessment & Plan: Recheck CXR. Needs IV antibiotic if it's is acute. Status: Acute
--- NOTE | 2017-12-06 17:12 | CP.PCM.PN ---
Subjective - Date & Time of Evaluation Date of Evaluation: 12/05/17 Time of Evaluation: 18:00 - Subjective Subjective: The patient appears comfortable, poor appetite, c/o constipation. Alert and awake. No overt SOB, cough Objective - Vital Signs/Intake and Output Vital Signs (last 24 hours): Temp Pulse Resp BP Pulse Ox 97.3 F L 113 H 24 112/77 100 12/06/17 16:25 12/06/17 16:25 12/06/17 16:25 12/06/17 16:25 12/06/17 16:25 Intake and Output: 12/06/17 12/06/17 06:59 18:59 Intake Total 400 Balance 400 - Medications Medications: Current Medications Albuterol Sulfate (Albuterol 0.083% Inhal Ingris (2.5 Mg/3 Ml) Ud) 1.25 mg INH RQ12 [facility] Last Admin: 12/06/17 08:11 Dose: 1.25 mg Diltiazem HCl (Cardizem Cd) 240 mg PO DAILY [facility] Last Admin: 12/06/17 11:02 Dose: 240 mg Docusate Sodium (Colace) 100 mg PO DAILY [facility] Last Admin: 12/06/17 11:02 Dose: 100 mg Fluconazole (Diflucan) 100 mg PO DAILY [facility] Last Admin: 12/06/17 11:02 Dose: 100 mg Pantoprazole Sodium (Protonix Ec Tab) 40 mg PO DAILY [facility] Last Admin: 12/06/17 11:02 Dose: 40 mg Prednisone (Prednisone Tab) 10 mg PO DAILY [facility] Last Admin: 12/06/17 11:02 Dose: 10 mg Sennosides (Senokot Tab) 8.6 mg PO DAILY [facility] Last Admin: 12/06/17 11:03 Dose: Not Given Zinc Sulfate (Zinc Sulfate 220 Mg Cap) 220 mg PO DAILY [facility] Last Admin: 12/06/17 11:02 Dose: 220 mg - Labs Labs: 12/06/17 08:42 12/06/17 08:42 PT 10.6 SECONDS (9.7-12.2) 11/29/17 15:36 INR 1.0 11/29/17 15:36 APTT 26 SECONDS (21-34) 11/29/17 15:36 Assessment and Plan (1) Metastatic carcinoma to liver Assessment & Plan: Metastatic mucinous adenocarcinoma, 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 Plan- From oncology standpoint, will continue palliative chemo upon discharge. Overall prognosis dismal Status: Resolved
--- NOTE | 2017-12-06 22:26 | CP.PCM.PN ---
Subjective - Date & Time of Evaluation Date of Evaluation: 12/06/17 Time of Evaluation: 13:30 - Subjective Subjective: Patient scheduled for dialysis. Increasing shortness of breath this AM due to bilateral pleural effusion. SOB should improve following dialysis. CT scan of the abdomen reveals multiple metastatic lesions of the liver. Objective - Vital Signs/Intake and Output Vital Signs (last 24 hours): Temp Pulse Resp BP Pulse Ox 97.6 F 111 H 20 159/79 H 98 12/06/17 17:13 12/06/17 17:13 12/06/17 17:13 12/06/17 17:13 12/06/17 17:13 - Medications Medications: Current Medications Albuterol Sulfate (Albuterol 0.083% Inhal Ingris (2.5 Mg/3 Ml) Ud) 1.25 mg INH RQ12 [facility] Last Admin: 12/06/17 19:21 Dose: 1.25 mg Diltiazem HCl (Cardizem Cd) 240 mg PO DAILY [facility] Last Admin: 12/06/17 11:02 Dose: 240 mg Docusate Sodium (Colace) 100 mg PO DAILY [facility] Last Admin: 12/06/17 11:02 Dose: 100 mg Fluconazole (Diflucan) 100 mg PO DAILY [facility] Last Admin: 12/06/17 11:02 Dose: 100 mg Pantoprazole Sodium (Protonix Ec Tab) 40 mg PO DAILY [facility] Last Admin: 12/06/17 11:02 Dose: 40 mg Prednisone (Prednisone Tab) 10 mg PO DAILY [facility] Last Admin: 12/06/17 11:02 Dose: 10 mg Sennosides (Senokot Tab) 8.6 mg PO DAILY [facility] Last Admin: 12/06/17 11:03 Dose: Not Given Zinc Sulfate (Zinc Sulfate 220 Mg Cap) 220 mg PO DAILY [facility] Last Admin: 12/06/17 11:02 Dose: 220 mg - Labs Labs: 12/06/17 08:42 12/06/17 08:42 PT 10.6 SECONDS (9.7-12.2) 11/29/17 15:36 INR 1.0 11/29/17 15:36 APTT 26 SECONDS (21-34) 11/29/17 15:36 - Constitutional Appears: Chronically Ill - Head Exam Head Exam: NORMOCEPHALIC - Eye Exam Eye Exam: Normal appearance - ENT Exam ENT Exam: Normal Exam - Neck Exam Neck Exam: Normal Inspection - Respiratory Exam Respiratory Exam: Decreased Breath Sounds - GI/Abdominal Exam GI & Abdominal Exam: Normal Bowel Sounds - Rectal Exam Rectal Exam: Deferred - Exam Exam: NORMAL INSPECTION - Extremities Exam Extremities Exam: Tenderness - Back Exam Back Exam: NORMAL INSPECTION - Neurological Exam Neurological Exam: Altered - Psychiatric Exam Psychiatric exam: Depressed - Skin Skin Exam: Dry Assessment and Plan (1) Metastatic carcinoma to liver Status: Resolved (2) Epistaxis Status: Resolved (3) Renal failure Status: Acute (4) ASHD (arteriosclerotic heart disease) Status: Acute (5) Atrial fibrillation Status: Acute (6) Degenerative joint disease Status: Acute (7) Severe anemia Status: Resolved (8) Bladder carcinoma Status: Acute
[2017-12-07] MEDS: Albuterol 0.083% Inhal Sol (2.5 mg/3 mL) UD INH SCH (07:21)
[2017-12-07] MEDS: Pantoprazole 40 mg EC Tab PO SCH (11:46)
[2017-12-07] MEDS: diltiaZEM 240 mg/24 Hours CD Cap PO SCH (11:46)
--- NOTE | 2017-12-07 12:40 | RAD ---
HISTORY: Follow up RUL infiltrates. COMPARISON: Portable chest 12/02/2017. TECHNIQUE: Chest PA and lateral FINDINGS: LUNGS: Increased bilateral infiltrates are appreciated heterogeneously, left side more affected than the right. PLEURA: Trace bilateral pleural effusions are not excluded. No pneumothorax identified bilaterally. CARDIOVASCULAR: Cardiac silhouette appears stable. Underlying pulmonary vascular derangement is not excluded OSSEOUS STRUCTURES: No significant abnormalities. VISUALIZED UPPER ABDOMEN: Normal. OTHER FINDINGS: None. IMPRESSION: Increasing bilateral infiltrates are identified, greater at the left than right sides with underlying pulmonary venous congestion not excluded. Clinically correlate further. Trace bilateral pleural effusions are suspected in the interval as well.
--- NOTE | 2017-12-07 13:20 | CP.PCM.PN ---
Subjective - Date & Time of Evaluation Date of Evaluation: 12/07/17 Time of Evaluation: 13:17 - Subjective Subjective: Awake, lethargic; not dyspneic s/p dialysis 12/06 Has been more edematous Hg better post transfusions Objective - Vital Signs/Intake and Output Vital Signs (last 24 hours): Temp Pulse Resp BP Pulse Ox 97.9 F 113 H 20 159/91 H 95 12/07/17 08:47 12/07/17 08:47 12/07/17 08:47 12/07/17 08:47 12/07/17 08:47 Intake and Output: 12/07/17 12/07/17 06:59 18:59 Intake Total 150 Balance 150 - Medications Medications: Current Medications Albuterol Sulfate (Albuterol 0.083% Inhal Ingris (2.5 Mg/3 Ml) Ud) 1.25 mg INH RQ12 [facility] Last Admin: 12/07/17 07:21 Dose: 1.25 mg Diltiazem HCl (Cardizem Cd) 240 mg PO DAILY [facility] Last Admin: 12/07/17 11:46 Dose: 240 mg Docusate Sodium (Colace) 100 mg PO DAILY [facility] Last Admin: 12/07/17 11:45 Dose: 100 mg Fluconazole (Diflucan) 100 mg PO DAILY [facility] Last Admin: 12/07/17 11:46 Dose: 100 mg Pantoprazole Sodium (Protonix Ec Tab) 40 mg PO DAILY [facility] Last Admin: 12/07/17 11:46 Dose: 40 mg Prednisone (Prednisone Tab) 10 mg PO DAILY [facility] Last Admin: 12/07/17 11:46 Dose: 10 mg Sennosides (Senokot Tab) 8.6 mg PO DAILY [facility] Last Admin: 12/07/17 11:46 Dose: 8.6 mg Zinc Sulfate (Zinc Sulfate 220 Mg Cap) 220 mg PO DAILY [facility] Last Admin: 12/07/17 11:46 Dose: 220 mg - Labs Labs: 12/06/17 08:42 12/06/17 08:42 PT 10.6 SECONDS (9.7-12.2) 11/29/17 15:36 INR 1.0 11/29/17 15:36 APTT 26 SECONDS (21-34) 11/29/17 15:36 - Constitutional Appears: No Acute Distress, Confused, Cachectic - Head Exam Head Exam: ATRAUMATIC, NORMAL INSPECTION - Eye Exam Eye Exam: EOMI, Normal appearance - Neck Exam Neck Exam: Normal Inspection. absent: Tenderness - Respiratory Exam Respiratory Exam: Clear to Ausculation Bilateral, NORMAL BREATHING PATTERN - Cardiovascular Exam Cardiovascular Exam: REGULAR RHYTHM, +S1 - GI/Abdominal Exam GI & Abdominal Exam: Soft. absent: Tenderness - Extremities Exam Extremities Exam: Pedal Edema. absent: Tenderness - Neurological Exam Neurological Exam: Alert, CN II-XII Intact - Skin Skin Exam: Warm. absent: Dry Assessment and Plan (1) ESRD (end stage renal disease) Status: Chronic (2) Epistaxis Status: Resolved (3) Metastatic carcinoma to liver Status: Resolved - Assessment and Plan (Free Text) Plan: Dialysis TTS Increase UF goal mildly 2 doses ferrlecit as TSAT low, ferritin over 1000
--- NOTE | 2017-12-07 14:06 | PN ---
DATE: LOCATION: 364, bed A. SUBJECTIVE: This is an 82-year-old male seen and examined in rounds without significant clinical changes or reported active bleeding, appeared to be somewhat confused and mildly disoriented, but awake. No reported chest pain, significant shortness of breath, nausea or vomiting this morning. Case discussed with the staff. Most recent lab results showed white blood cells of 15.7 with low hemoglobin and hematocrit with the potassium elevated but low sodium. Today's lab is still pending. PHYSICAL EXAMINATION GENERAL: An 82-year-old male in a state of DNR and DNI. VITAL SIGNS: Afebrile with pulse of 108, respiratory rate 20-22, blood pressure 150/88. HEENT: Showed mildly pale dry oral mucoid membrane. Nonicteric sclerae. LUNGS: Few scattered crepitation with decreased air entry at bases. HEART: Positive S1 and S2. ABDOMEN: Soft. Bowel sounds are present with mild generalized tenderness. No mass or organomegaly. No rebound tenderness or guarding. RECTAL: The patient refused. EXTREMITIES: Lower extremity with mild edematous changes. AV shunt is in place. NEUROLOGIC: No new reported focal neurological deficits, sensory or motor. The patient is on hemodialysis due to his period of increased shortness of breath before. DIAGNOSTIC DATA: The official report of the CAT scan of the abdomen and pelvis also reviewed, indicative of metastatic lesion in the liver. Upper endoscopy pathology report seen is positive for Helicobacter pylori organism, which could be treated as outpatient. IMPRESSION: 1. Peptic ulcer disease with esophageal candidiasis. 2. Recent history of epistaxis, subsided. 3. Chronic renal failure, on hemodialysis. 4. Anemia secondary to above. 5. Abnormal CAT scan of the abdomen and pelvis with possible metastatic lesion to the liver. 6. Bladder tumor mass with bilateral uropathy. 7. Known history of atherosclerotic heart disease, atrial fibrillation, degenerative joint disease. 8. Multifocal pneumonia by recent radiology study results with persistent bilateral pleural effusion, the patient may need thoracocentesis. SUGGESTIONS: 1. Agree with your plan. 2. Repeat stool for occult blood. 3. Blood transfusion as needed to keep hemoglobin around 10 g percent. 4. Again due to the patient's age group and clinical status, no aggressive further GI workup to be scheduled. Hossein Mora MD [facility] # [id number]
[2017-12-07 15:00] LABS: CALCIUM 7.8 mg/dl (8.6-10.4)
--- NOTE | 2017-12-07 22:41 | CP.PCM.PN ---
Subjective - Date & Time of Evaluation Date of Evaluation: 12/07/17 Time of Evaluation: 13:30 - Subjective Subjective: Patient lethargic and oxeginating poorly. Chest xray bilateral pleural effusion. BUN 68, and creatinine 6.6. Dr Jones to evaluate pulmonaty status. Objective - Vital Signs/Intake and Output Vital Signs (last 24 hours): Temp Pulse Resp BP Pulse Ox 97.7 F 82 19 118/66 94 L 12/07/17 19:20 12/07/17 19:20 12/07/17 19:20 12/07/17 19:20 12/07/17 19:20 - Medications Medications: Current Medications Diltiazem HCl (Cardizem Cd) 240 mg PO DAILY [facility] Last Admin: 12/07/17 11:46 Dose: 240 mg Docusate Sodium (Colace) 100 mg PO DAILY [facility] Last Admin: 12/07/17 11:45 Dose: 100 mg Fluconazole (Diflucan) 100 mg PO DAILY [facility] Last Admin: 12/07/17 11:46 Dose: 100 mg Ferric Sodium Gluconate Complex 125 mg/ Sodium Chloride 110 mls @ 110 mls/hr IVPB DAILY [facility] Stop: 12/10/17 10:01 Pantoprazole Sodium (Protonix Ec Tab) 40 mg PO DAILY [facility] Last Admin: 12/07/17 11:46 Dose: 40 mg Prednisone (Prednisone Tab) 10 mg PO DAILY [facility] Last Admin: 12/07/17 11:46 Dose: 10 mg Sennosides (Senokot Tab) 8.6 mg PO DAILY [facility] Last Admin: 12/07/17 11:46 Dose: 8.6 mg Zinc Sulfate (Zinc Sulfate 220 Mg Cap) 220 mg PO DAILY [facility] Last Admin: 12/07/17 11:46 Dose: 220 mg - Labs Labs: 12/06/17 08:42 12/07/17 14:38 PT 10.6 SECONDS (9.7-12.2) 11/29/17 15:36 INR 1.0 11/29/17 15:36 APTT 26 SECONDS (21-34) 11/29/17 15:36 - Constitutional Appears: Chronically Ill - Head Exam Head Exam: NORMOCEPHALIC - Eye Exam Eye Exam: Normal appearance Pupil Exam: NORMAL ACCOMODATION - ENT Exam ENT Exam: Normal Exam - Neck Exam Neck Exam: Normal Inspection - Respiratory Exam Respiratory Exam: Decreased Breath Sounds - Cardiovascular Exam Cardiovascular Exam: REGULAR RHYTHM - GI/Abdominal Exam GI & Abdominal Exam: Normal Bowel Sounds - Rectal Exam Rectal Exam: Deferred - Exam Exam: NORMAL INSPECTION - Extremities Exam Extremities Exam: Tenderness - Back Exam Back Exam: NORMAL INSPECTION - Neurological Exam Neurological Exam: Altered - Psychiatric Exam Psychiatric exam: Depressed - Skin Skin Exam: Dry Assessment and Plan (1) Metastatic carcinoma to liver Status: Resolved (2) Epistaxis Status: Resolved (3) Renal failure Status: Acute (4) ASHD (arteriosclerotic heart disease) Status: Acute (5) Atrial fibrillation Status: Acute (6) Degenerative joint disease Status: Acute (7) Severe anemia Status: Resolved (8) Bladder carcinoma Status: Acute (9) Pleural effusion Status: Acute
[2017-12-08 00:09] VITALS: BP 124/63; PULSE 90; RESP 20; TEMP 97.2; O2SAT 97
--- NOTE | 2017-12-08 05:51 | CP.PCM.PRO ---
Pronouncement of Note - Clinical Findings Physical Exam: No Response Verbal/Painful Stimuli, Absent Peripheral Pulses{ Carotid & Femoral}, Absent Heart & Breath Sounds, No Pupillary Light Reflex, Pupils Fixed & Dilated, Absence of Vital Signs - Pronouncement Time Time of Pronouncement of : 05:45 - Notifications Pronouncement Notifications: Family Notified, Atending Notified C Developer Notified: No - Autopsy Autopsy Requested: No - [place] [id number]
[2017-12-08] MEDS ORDERED: Ferric Sodium Gluconat Complex 125 MG in Sodium Chloride 0.9% 100 ML IVPB SCH (10:00)
[2017-12-08] MEDS ORDERED: Ferric Sodium Gluconat Complex 62.5 mg/5 ml Vial IVPB SCH (10:00)
--- NOTE | 2017-12-08 10:33 | PN ---
DATE: SUBJECTIVE: The patient is alert. The relatives are sitting by his bedside. The patient is in bed, slightly confused. PHYSICAL EXAMINATION: VITAL SIGNS: He is afebrile, blood pressure 158/90, pulse 110, respiration , hemoglobin oxygen saturation of 95% on room air. GENERAL: He is not in any acute distress. HEART: His heart is regular with no gallop rhythm. LUNGS: Diminished breath sounds. Rhonchi decreased. ABDOMEN: Soft. EXTREMITIES: Legs, no edema. LABORATORY DATA: White count 15,700, hemoglobin 10.7, platelet count 163,000. Serum sodium 127, potassium high and reported to be 6.3. The patient is on dialysis. We will repeat the serum potassium to rule out the false results or hemodialysis. The prior serum potassium was 4.5. Chloride is 87, BUN 97. Chest x-ray shows increase in congestive changes and colon pushing the left side left hemidiaphragm upwards. IMPRESSION: renal insufficiency, pulmonary congestive changes, possible sepsis, carcinoma, pulmonary congestive changes right lower lobe infiltrate with small amount of pleural effusion, degenerative joint disease, carcinoma of urinary bladder, anemia, electrolyte imbalance and chronic renal failure with acute renal failure. PLAN: To continue with therapy, hemodialysis. To remove excess amount of fluid through dialysis, especially in view of the increase in pulmonary congestive changes and worsening chest x-ray and increase in blood pressure readings and electrolyte imbalance. Plan to continue with the Renal followup and Infectious Disease followup and current measures and checking the electrolytes and follow up with chest x-ray readings. Spoke to the nurse with the recommendations to be followed up with Renal specialist also. We will do septic workup and check serum potassium. Gregorio Jones MD
--- NOTE | 2017-12-08 11:28 | PN ---
DATE: LOCATION: 364, bed A. SUBJECTIVE: This is an 82-year-old male in a status of DNR and DNI, seen early yesterday for round, came to see the patient today, was informed that the patient is as the patient had been in DNR status. At this point, no further action to follow. Hossein Mora MD
--- NOTE | 2017-12-12 14:50 | CP.PCM.DIS ---
Provider - Provider Date of Admission: 11/30/17 17:52 Attending physician: Nestor Jason MD Time Spent in preparation of Discharge (in minutes): 24 Diagnosis - Discharge Diagnosis (1) Metastatic carcinoma to liver Status: Resolved (2) Epistaxis Status: Resolved (3) Renal failure Status: Acute (4) ASHD (arteriosclerotic heart disease) Status: Acute (5) Atrial fibrillation Status: Acute (6) Degenerative joint disease Status: Acute (7) Severe anemia Status: Resolved (8) Bladder carcinoma Status: Acute (9) Pleural effusion Status: Acute Hospital Course - Lab Results Lab Results: Micro Results 12/07/17 14:30 Blood-Venous Blood Culture - Preliminary NO GROWTH AFTER 4 DAYS 12/07/17 14:00 Blood-Venous Blood Culture - Preliminary NO GROWTH AFTER 4 DAYS 12/01/17 23:30 Blood-Venous Blood Culture - Final NO GROWTH AFTER 5 DAYS 12/01/17 23:30 Blood-Venous Gram Stain - Final TEST NOT PERFORMED 12/01/17 23:00 Blood-Venous Blood Culture - Final NO GROWTH AFTER 5 DAYS 12/01/17 23:00 Blood-Venous Gram Stain - Final TEST NOT PERFORMED 12/02/17 21:50 Naris MRSA Culture - Final MRSA NOT DETECTED 11/30/17 06:22 Naris MRSA Culture (Admit) - Final MRSA NOT DETECTED Most Recent Lab Values WBC 15.7 K/uL (4.8-10.8) H D 12/06/17 08:42 RBC 3.33 Mil/uL (4.40-5.90) L 12/06/17 08:42 Hgb 10.7 g/dL (12.0-18.0) L 12/06/17 08:42 Hct 33.0 % (35.0-51.0) L 12/06/17 08:42 MCV 98.9 fL (80.0-94.0) H 12/06/17 08:42 MCH 32.2 pg (27.0-31.0) H 12/06/17 08:42 MCHC 32.6 g/dL (33.0-37.0) L 12/06/17 08:42 RDW 19.7 % (11.5-14.5) H 12/06/17 08:42 Plt Count 163 K/uL (130-400) 12/06/17 08:42 MPV 8.2 fL (7.2-11.7) 12/06/17 08:42 Neut % (Auto) 91.6 % (50.0-75.0) H 12/06/17 08:42 Lymph % (Auto) 0.7 % (20.0-40.0) L 12/06/17 08:42 [place] % (Auto) 7.5 % (0.0-10.0) 12/06/17 08:42 Eos % (Auto) 0.0 % (0.0-4.0) 12/06/17 08:42 Baso % (Auto) 0.2 % (0.0-2.0) 12/06/17 08:42 Neut # 14.4 K/uL (1.8-7.0) H 12/06/17 08:42 Lymph # 0.1 K/uL (1.0-4.3) L 12/06/17 08:42 [place] # 1.2 K/uL (0.0-0.8) H 12/06/17 08:42 Eos # 0.0 K/uL (0.0-0.7) 12/06/17 08:42 Baso # 0.0 K/uL (0.0-0.2) 12/06/17 08:42 Neutrophils % (Manual) 95 % (50-75) H 12/06/17 08:42 Band Neutrophils % 1 % (0-2) 12/02/17 05:56 Lymphocytes % (Manual) TEST NOT PERFORMED 12/06/17 08:42 Monocytes % (Manual) 5 % (0-10) 12/06/17 08:42 Eosinophils % (Manual) 1 % (0-4) 12/04/17 09:12 Nucleated RBC % 2 % (0-0) H 12/02/17 05:56 Toxic Granulation Present 11/29/17 15:36 Platelet Estimate Normal (NORMAL) 12/06/17 08:42 Large Platelets Present 12/04/17 09:12 Polychromasia Slight 12/06/17 08:42 Hypochromasia (manual) Slight 12/06/17 08:42 Poikilocytosis (manual Slight 12/04/17 09:12 Anisocytosis (manual) Slight 12/06/17 08:42 Microcytosis (manual) Slight 12/04/17 09:12 Macrocytosis (manual) Slight 12/06/17 08:42 Target Cells Moderate 12/02/17 05:56 Tear Drop Cells Slight 12/04/17 09:12 Ovalocytes Slight 12/06/17 08:42 Klarissa Cells Slight 12/06/17 08:42 Acanthocytes (Spur) Slight 12/01/17 06:18 Schistocytes Slight 12/06/17 08:42 PT 10.6 SECONDS (9.7-12.2) 11/29/17 15:36 INR 1.0 11/29/17 15:36 APTT 26 SECONDS (21-34) 11/29/17 15:36 Puncture Site Rradial 12/02/17 18:30 pCO2 37 mm/Hg (35-45) 12/02/17 18:30 pO2 62 mm/Hg (80-100) L 12/02/17 18:30 HCO3 26.2 mmol/L (21-28) 12/02/17 18:30 ABG pH 7.45 (7.35-7.45) 12/02/17 18:30 ABG Total CO2 26.8 mmol/L (22-28) 12/02/17 18:30 ABG O2 Saturation 94.6 % (95-98) L 12/02/17 18:30 ABG Base Excess 1.7 mmol/L (-2.0-3.0) 12/02/17 18:30 ABG Hemoglobin 8.5 g/dL (11.7-17.4) L 12/02/17 18:30 ABG Carboxyhemoglobin 1.5 % (0.5-1.5) 12/02/17 18:30 POC ABG HHb (Measured) 5.3 % (0.0-5.0) H 12/02/17 18:30 ABG Methemoglobin 0.8 % (0.0-3.0) 12/02/17 18:30 Arturo Test Pos 12/02/17 18:30 A-a O2 Difference 91.0 mm/Hg 12/02/17 18:30 Respiratory Index 1.5 12/02/17 18:30 Hgb O2 Saturation 92.4 % (95.0-98.0) L 12/02/17 18:30 Liter Flow 2.0 12/02/17 18:30 FiO2 28.0 % 12/02/17 18:30 Sodium 129 mmol/L (132-148) L 12/07/17 14:38 Potassium 6.1 mmol/L (3.6-5.2) H 12/07/17 14:38 Chloride 90 mmol/L (98-107) L 12/07/17 14:38 Carbon Dioxide 28 mmol/L (22-30) 12/07/17 14:38 Anion Gap 17 (10-20) 12/07/17 14:38 BUN 68 mg/dL (9-20) H 12/07/17 14:38 Creatinine 6.6 mg/dL (0.8-1.5) H 12/07/17 14:38 Est GFR ( Amer) 10 12/07/17 14:38 Est GFR (Non-Af Amer) 8 12/07/17 14:38 Random Glucose 102 mg/dL (75-110) 12/07/17 14:38 Calcium 7.8 mg/dl (8.6-10.4) L 12/07/17 14:38 % Saturation 10 (20-55) L 12/05/17 16:39 Ferritin 1130.0 ng/mL 12/05/17 16:39 Total Bilirubin 0.5 mg/dL (0.2-1.3) 12/02/17 05:58 AST 33 U/L (17-59) 12/02/17 05:58 ALT 37 U/L (21-72) 12/02/17 05:58 Alkaline Phosphatase 71 U/L (38-126) 12/02/17 05:58 Total Protein 4.9 g/dL (6.3-8.3) L 12/02/17 05:58 Albumin 2.6 g/dL (3.5-5.0) L D 12/02/17 05:58 Globulin 2.3 gm/dL (2.2-3.9) 12/02/17 05:58 Albumin/Globulin Ratio 1.2 (1.0-2.1) 12/02/17 05:58 Carcinoembryonic Ag 126.0 ng/mL (0-3.0) H 12/01/17 06:20 Blood Type B POSITIVE 12/02/17 09:32 Antibody Screen Negative 01/05/18 09:32 Discharge Exam - Head Exam Head Exam: NORMOCEPHALIC Discharge Plan - Follow Up Plan Condition: FAIR Disposition: WITH WITHOUT AUTOPSY
== END 2017-12-08 05:45 | DRG 291 ==
LOC: C.ER 14:05 → C.9E 16:31 → C.9I 22:33 → OBSVTOIN 11-30 17:52 → C.3T 12-02 22:12
PROVIDERS: ADMIT Internal Medicine; ATTEND Internal Medicine
PROC: 5A1D70Z Performance of Urinary Filtration, Intermittent, Less than 6 Hours Per Day (ICD-10-PCS; 2017-12-01)
PROC: 30233N1 Transfusion of Nonautologous Red Blood Cells into Peripheral Vein, Percutaneous Approach (ICD-10-PCS; 2017-12-01)
PROC: 5A1D70Z Performance of Urinary Filtration, Intermittent, Less than 6 Hours Per Day (ICD-10-PCS; 2017-12-03)
PROC: 0DB68ZX Excision of Stomach, Via Natural or Artificial Opening Endoscopic, Diagnostic (ICD-10-PCS; principal; 2017-12-05 13:38)
PROC: 5A1D70Z Performance of Urinary Filtration, Intermittent, Less than 6 Hours Per Day (ICD-10-PCS; 2017-12-06)
DX: I13.2 Hypertensive heart and chronic kidney disease with heart failure and with stage 5 chronic kidney disease, or end stage renal disease (principal); J18.9 Pneumonia, unspecified organism; N17.9 Acute kidney failure, unspecified; C78.7 Secondary malignant neoplasm of liver and intrahepatic bile duct; C78.00 Secondary malignant neoplasm of unspecified lung; B37.81 Candidal esophagitis; I27.20 Pulmonary hypertension, unspecified; I48.2 Chronic atrial fibrillation; I47.1 Supraventricular tachycardia; N18.6 End stage renal disease; N13.30 Unspecified hydronephrosis; B96.81 Helicobacter pylori [H. pylori] as the cause of diseases classified elsewhere; I50.9 Heart failure, unspecified; K29.00 Acute gastritis without bleeding; C67.9 Malignant neoplasm of bladder, unspecified; R97.0 Elevated carcinoembryonic antigen [CEA]; K29.50 Unspecified chronic gastritis without bleeding; K44.9 Diaphragmatic hernia without obstruction or gangrene; R04.0 Epistaxis; J45.909 Unspecified asthma, uncomplicated; I25.10 Atherosclerotic heart disease of native coronary artery without angina pectoris; D63.1 Anemia in chronic kidney disease; K27.9 Peptic ulcer, site unspecified, unspecified as acute or chronic, without hemorrhage or perforation; K59.00 Constipation, unspecified; M17.0 Bilateral primary osteoarthritis of knee; M81.0 Age-related osteoporosis without current pathological fracture; Z66 Do not resuscitate; Z85.46 Personal history of malignant neoplasm of prostate; Z85.51 Personal history of malignant neoplasm of bladder; Z86.72 Personal history of thrombophlebitis; Z91.15 Patient's noncompliance with renal dialysis; Z99.2 Dependence on renal dialysis; E78.00 Pure hypercholesterolemia, unspecified